=== PATIENT | female | born 1940 | race Caucasian/White ===

== ENCOUNTER 2019-08-14 22:10 | Inpatient (IN) | payer MEDICARE, OTHER, SELFPAY ==
[2019-08-14 22:11] VITALS: BP 118/70; PULSE 85; RESP 16; TEMP 37.9; O2SAT 88; O2SAT 94; BMI 38.3
--- NOTE | 2019-08-14 22:13 | XR_ITS ---
PROCEDURE: XR CHEST PORTABLE CLINICAL HISTORY: soa, cough COMPARISON: No exams were available for comparison FINDINGS: There is mild cardiomegaly without failure. Patchy density is noted in the right lower lung zone. There is also increased density in the left perihilar region and in the left lower lobe. No obvious effusions. Degenerative changes are present in the shoulders. There is some mild prominence of the mediastinum. IMPRESSION: Bilateral pneumonia with cardiomegaly. Cannot exclude left hilar mass. Consider chest CT with contrast for further evaluation Dictated by: Yoel Tay MD 08/15/2019 05:49 Electronically signed by Yoel Tay MD in [place] 08/15/2019 05:49
--- NOTE | 2019-08-14 22:16 | HMH.EDSOB ---
ED Disposition Clinical Impression: Pneumonia Qualifiers: Pneumonia type: due to unspecified organism Laterality: left Lung location: upper lobe of lung Qualified Code(s): J18.9 - Pneumonia, unspecified organism Pulmonary edema Qualifiers: Chronicity: acute Qualified Code(s): J81.0 - Acute pulmonary edema Atrial fibrillation Qualifiers: Atrial fibrillation type: unspecified Qualified Code(s): I48.91 - Unspecified atrial fibrillation Disposition: Admitted As Inpatient Condition on Discharge: Fair Referrals: Reggie Gandhi MD [Primary Care Provider] - - Critical Care Critical Care Time: No Attestation: On , the high probability of a clinically significant, sudden or life threatening deterioration of the following system(s) required my full and direct attention, intervention and personal management. The time I documented below is in addition to time spent performing reported procedures but includes the following listed in this critical care notation. Medical Decision Making - Medical Records Medical records reviewed: Yes: I reviewed the patient's medical records. - Cristian Inquiry Pt receiving controlled substance: No Vital Signs: 08/14/19 22:11 Temperature 100.2 F H Temperature Source Rectal Pulse Rate [Left Radial] 85 Respiratory Rate 16 Blood Pressure [Right Arm] 118/70 Blood Pressure Mean [Right Arm] 86 Blood Pressure Source [Right Arm] Automatic Cuff Blood Pressure Position [Right Arm] Sitting 02 Sat by Pulse Oximetry 94 L Oxygen Delivery Method Nasal Cannula Oxygen Flow Rate (LPM) 2 - Lab Data Lab Results 08/14/19 22:10: SARS-CoV-2 IgG Ab (Rapid) Negative, SARS-CoV-2 IgM Ab (Rapid) Negative 08/14/19 22:10: Urine Color Yellow, Urine Appearance Cloudy, Urine pH 5.5, Ur Specific [place] 1.020, Urine Protein 1+, Urine Glucose (UA) Negative, Urine Ketones Negative, Urine Blood Negative, Urine Nitrate Negative, Urine Bilirubin Negative, Urine Urobilinogen 0.2, Ur Leukocyte Esterase 2+ A, Urine WBC 50-100, Ur Squamous Epith Cells 10-20 08/14/19 22:10: WBC 11.6 H, RBC 5.32, Hgb 14.7, Hct 45.0, MCV 84.5, MCH 27.6, MCHC 32.7, RDW 15.0, Plt Count 270, MPV 9.3, Neut % (Auto) 79.1, Lymph % (Auto) 13.5, [place] % (Auto) 5.6, Eos % (Auto) 0.1, Baso % (Auto) 1.7, Neut # (Auto) 9.2 H, Lymph # (Auto) 1.6, [place] # (Auto) 0.7, Eos # (Auto) 0.0, Baso # (Auto) 0.2 08/14/19 22:10: Sodium 138, Potassium 3.6, Chloride 103, Carbon Dioxide 25, Anion Gap 13.6, BUN 31 H, Creatinine 1.60 H, Estimated Creat Clear 38, Estimated GFR 31 L, Est GFR ( Amer) 38 L, Glucose 189 H, Calcium 8.8, Total Bilirubin 0.8, AST 43 H, ALT 24, Alkaline Phosphatase 110, Troponin I 0.02, Total Protein 7.8, Albumin 3.8, Globulin 4.0 H, Albumin/Globulin Ratio 1.0 L 08/14/19 22:10: NT-Pro-B Natriuret Pep 5140 H Result diagrams: 08/14/19 22:10 08/14/19 22:10 Orders (Tests/Meds): ED MEDICATIONS Generic Name Dose Route Start Last Admin Trade Name Freq PRN Reason Stop Dose Admin Acetaminophen 650 mg 08/14/19 23:08 Acetaminophen 325mg Tab PO 09/13/19 23:07 Q4HP PRN As Needed for Fever or Pain Ibuprofen 400 mg 08/14/19 23:08 Motrin 400mg Tablet PO 09/13/19 23:07 Q6HP PRN Mild Pain Ondansetron HCl 4 mg 08/14/19 23:08 Zofran 4mg/2ml Vial IV 09/13/19 23:07 Q8HP PRN Nausea Discontinued Medications Generic Name Dose Route Start Last Admin Trade Name Freq PRN Reason Stop Dose Admin Cefepime HCl 2 gm/ Sodium 100 mls @ 200 mls/hr 08/14/19 22:15 Chloride IV 08/14/19 22:44 ONCE ONE Protocol ORDERS Category Date Time Status Chest XR -- portable [XR chest portable] Stat Exams 08/14/19 22:13 Taken Lactic Acid Stat Lab 08/14/19 22:14 Ordered Respiratory Panel (COVID), PCR Stat Lab 08/14/19 22:30 Received Troponin I Q3H Lab 08/15/19 01:15 Ordered Troponin I Q3H Lab 08/15/19 04:15 Ordered Blood Culture Stat Micro 08/14/19 22:14 Ordered Urine Culture Stat Micro
[2019-08-14 22:29] LABS: Basophils # 0.2 K/mm3 (0-0.2); Basophils % 1.7 % (0.1-2.0); Eosinophils % 0.1 % (0.1-12.0); Hemoglobin 14.7 g/dL (12.2-16.2); Lymphocytes # 1.6 K/mm3 (0.7-4.5); Lymphocytes % 13.5 % (10-50); Mean Corpuscular HGB Conc 32.7 g/dL (31.8-35.4); Mean Corpuscular Hemoglobin 27.6 pg (27.0-31.2); Mean Corpuscular Volume 84.5 fl (81-99); Mean Platelet Volume 9.3 fl (7.4-10.4); Monocytes # 0.7 K/mm3 (0.1-1.0); Monocytes % 5.6 % (1.7-9.3); Neutrophils # 9.2 K/mm3 (1.8-7.8); Neutrophils % 79.1 % (37.0-80.0); Platelet Count 270 K/mm3 (142-424); Red Blood Count 5.32 M/mm3 (4.20-5.40); White Blood Count 11.6 K/mm3 (4.8-10.8)
[2019-08-14 22:30] LABS: Microscopic, Urine URINE MICROSCOPIC (MICROSCOPIC)
[2019-08-14 22:40] LABS: Adenovirus,PCR Not Detected (NotDetected); Bordetella Pertussis Not Detected (NotDetected); Chlamydophila Pneumoniae, PCR Not Detected (NotDetected); Coronavirus 229E Not Detected (NotDetected); Coronavirus NL63 Not Detected (NotDetected); Coronavirus OC43 Not Detected (NotDetected); Coronovirus HKU1,PCR Not Detected (NotDetected); Human Metapneumovirus Not Detected (NotDetected); Influenza A, PCR Not Detected (NotDetected); Influenza AH1, 2009 Not Detected (NotDetected); Influenza AH1, PCR Not Detected (NotDetected); Influenza AH3,PCR Not Detected (NotDetected); Influenza B, PCR Not Detected (NotDetected); Mycoplasma Pneumoniae, PCR Not Detected (NotDected); Parainfluenza 1, PCR Not Detected (NotDetected); Parainfluenza 2, PCR Not Detected (NotDetected); Parainfluenza 3, PCR Not Detected (NotDetected); Parainfluenza 4, PCR Not Detected (NotDetected); Respiratory Syncytial Virus Not Detected (NotDetected); Rhinovirus/Enterovirus Not Detected (NotDetected)
[2019-08-14 22:51] LABS: Alanine Aminotransferase 24 U/L (12-78); Albumin Level 3.8 g/dl (3.5-5.0); Alkaline Phosphatase 110 U/L (38-126); Anion Gap 13.6 mEq/L (5-15); Aspartate Amino Transferase 43 U/L (14-36); Bilirubin,Total 0.8 mg/dl (0.2-1.3); Blood Urea Nitrogen 31 mg/dl (7-17); Calcium 8.8 mg/dl (8.4-10.2); Carbon Dioxide 25 mmol/L (22.0-30.0); Chloride 103 mmol/L (98-107); Creatinine Clearance Estimated 38 mL/min (50-200); Estimated Glomerular Filt Rate 31 ml/min (>60); GFR (African American) 38 ML/MIN (>60); Glucose 189 mg/dl (74-100); Potassium 3.6 mmoL/L (3.5-5.1); Sodium 138 mmol/L (136-145); Total Protein,Serum 7.8 g/dl (6.3-8.2)
[2019-08-14 22:59] LABS: Appearance,Urine CLOUDY (Clear); Bilirubin,Urine Negative (Negative); Blood, Urine Negative (Negative); Color,Urine YELLOW (Yellow); Glucose,Urine (UA) Negative (Negative); Ketones,Urine Negative (Negative); Leukocyte Esterase,Urine 2+ (Negative); Nitrate,Urine Negative (Negative); PH,Urine 5.5 (5.0-8.5); Protein,Urine 1+ (Negative); Urobilinogen,Urine 0.2 EU/dl (0.2)
[2019-08-14 23:01] VITALS: BP 117/77; PULSE 98; RESP 17; O2SAT 94
[2019-08-14 23:01] LABS: NT Pro Brain Natriuretic Pep. 5140 pg/mL (0-450)
[2019-08-14 23:04] LABS: Troponin I 0.02 ng/ml (0.00-0.034)
[2019-08-14 23:05] LABS: Coronavirus 19 IgG Antibody Negative (Negative); Coronavirus 19 IgM Antibody Negative (Negative)
[2019-08-14 23:07] LABS: WBC,Urine 50-100 #/hpf (0-3)
[2019-08-14 23:41] VITALS: BP 111/43; PULSE 116; RESP 16; O2SAT 93
[2019-08-14 23:47] LABS: Lactic Acid 1.3 mmol/L (0.7-2.1)
[2019-08-15] VITALS (11 sets, daily range): BP systolic 106–160; BP diastolic 56–68; PULSE 94–130; RESP 16–20; TEMP 35.6–38; O2SAT 2–93; BMI 36.4
--- NOTE | 2019-08-15 | ECG_ITS ---
APPROVED REPORT Exam: Resting ECG HR:152 bpm ECG Measurements Heart Rate 152 AXES QRSd 80 QRS -28 QT 268 T 126 QTc 426 <Conclusion> Atrial fibrillation with rapid ventricular response with premature ventricular or aberrantly conducted complexes Septal infarct, age undetermined Inferior infarct, age undetermined Abnormal ECG Electronically signed by : Jesse Kilgore, 08/16/2019 15:52:55
[2019-08-15 00:06] LABS: Coronavirus 19, PCR Detected (NotDetected)
[2019-08-15 05:49] LABS: POC Glucose,Bedside 125 (70-110)
--- NOTE | 2019-08-15 05:53 | PC.NURSE ---
Pt new admit this shift d/t Covid, UTI, PNA, and AFIB w/RVR. Pt is A&Ox4 since arrivall although she is a poor historian r/t doing admission assessment questions. Pt has had no complaints since arrival. Rectal temp of 96.0 was obtained and pt was covered w/ warm blankets and temperature in room was increased. Re-check rectal temp was 97.7. No new complaints. Pt remains Afib on tele at this time but rate is 100's-120's now. Tolerating 1LNC w/ sats in low 90's. Campbell is patent to bedside drain w/ clear, yellow urine noted w/ small amount of sediment present. Will continue to monitor.
--- NOTE | 2019-08-15 07:29 | P.CONPHA_ITS ---
[facility] Pharmacy VTE Monitoring - Patient Demographics Admission date: 08/14/19 Report Date: 08/15/19 Time: 07:29 Allergies/Adverse Reactions: Patient Allergies codeine Allergy (Verified 08/14/19 22:45) Height: 1.5 m Weight: 82.1 kg Patient Problems: Current Active Problems Pneumonia (Acute) Pulmonary edema (Acute) Atrial fibrillation (Acute) - VTE Risk Labs: VTE Related Lab Results Hgb 14.7 g/dL (12.2-16.2) 08/14/19 22:10 Hct 45.0 % (37.0-47.0) 08/14/19 22:10 Plt Count 270 K/mm3 (142-424) 08/14/19 22:10 BUN 31 mg/dl (7-17) H 08/14/19 22:10 Creatinine 1.60 mg/dl (0.52-1.04) H 08/14/19 22:10 Estimated Creat Clear 38 mL/min (50-200) 08/14/19 22:10 Was VTE Risk Assessment Performed: Yes VTE Score: 4 VTE Risk Level: Low Risk Clinical Trial Participant: No - Prophylaxis VTE Prophylaxis Ordered?: Yes Types of VTE Prophylaxis: TEDS Knee High, Pharmacological Pharmacologic Type: Enoxaparin
--- NOTE | 2019-08-15 08:20 | HMH.PHAINT ---
MEDICATION RECONCILIATION COMPLETED ON PATIENT USING MAR FROM [facility]. -TERESA RODRIGUEZ, PHILLD
--- NOTE | 2019-08-15 09:34 | HMH.HP ---
*Admission Date: 08/14/19 *Chief complaint: soa *History of present illness: 78 yo female resident of [facility] sent to ED for SOA, cough,and malaise for 1 week. Pt states several episodes of vomiting and diarrhea as well.Past medical history significant for diabetes, coronary artery disease, hypothyroidism, COPD, arthritis Found to have bilateral pneumonia and tested positive for COVID 19. Telemetry and EKG reveals A. fib with RVR that has improved to rates down around 100 bpm without rate control medication addition. Initial troponin is normal. BNP noted to be greater than 5000 with no definitive results of CHF noted on chest x-ray. Mild hypoxia has responded well to 1 L of oxygen therapy. She was noted to have oxygen saturations of 88 to 89% on room air at [place] where she resides. Pt admitted for Bilateral pneumonia with cardiomegaly and Positive COVID test. [facility] History I have reviewed the patient's past medical history: Yes Medical History: Reports:: Chronic Obstructive Pulmonary Disease (COPD), Coronary Artery Disease, Diabetes Mellitus Type 2 Denies:: Cancer, Diabetes Mellitus Type 1, MRSA *Have you ever received a pneumonia vaccine?: No (pt unsure) *Have you received a flu vaccine this season?: Yes Other Medical History: Reports: Arthritis, Hypothyroidism Amputation: No - *Social History Alcohol Intake: never *Occupational Status:: disabled Housing: assisted living facility Household Members: other *Travel in the last 8 weeks: None Family Hx:: Unable to obtain Review of Systems - Review of Systems Review of systems:: pertinent systems reviewed and negative unless documented below - Constitutional Reports fever(s), Reports malaise - Eyes Denies loss of vision - ENT Denies lip swelling, Denies sore throat - *Cardiovascular Reports shortness of breath, Reports shortness of breath with activity, Reports irregular heart rhythm, Denies chest pain with activity - *Respiratory Reports change in phlegm color, Reports chest congestion, Reports cough, Reports shortness of breath - *Gastrointestinal Reports loose stools, Reports vomiting - *Genitourinary Denies urinary incontinence - *Musculoskeletal Reports muscle weakness, Denies joint pain - Integumentary/Breasts Denies rash - *Neurologic Reports weakness, Denies memory loss - Psychiatric Denies anxiety - Endocrine Denies excessive sweating - Hematologic/Lymphatic Denies easy bruising Meds Home Medications Medication Instructions Recorded Confirmed Type Amlodipine Besylate [Amlodipine 5 mg PO BID 08/14/19 08/15/19 History 5mg tab] Atorvastatin Calcium [Atorvastatin 80 mg PO HS 08/14/19 08/14/19 History 80mg Tab] Furosemide [Furosemide 20mg Tab] 20 mg PO DAILY 08/14/19 08/14/19 History Hydralazine HCl 50 mg PO TID 08/14/19 08/14/19 History Insulin Glargine,Hum.rec.anlog 15 unit SQ HS 08/14/19 08/14/19 History [Lantus Insulin 100units/mL 10mL vial] Levothyroxine Sodium 25 mcg PO DAILY 08/14/19 08/14/19 History [Levothyroxine 25mcg (0.025mg) Tab] Linagliptin [Tradjenta 5mg tablet] 5 mg PO DAILY 08/14/19 08/14/19 History Losartan Potassium [Cozaar 50mg 50 mg PO DAILY 08/14/19 08/14/19 History Tablets] Mirtazapine [Remeron] 15 mg PO HS 08/14/19 08/15/19 History Acetaminophen [Acetaminophen 325mg 650 mg PO Q6H PRN 08/15/19 08/15/19 History tab] Albuterol Sulfate [Ventolin HFA 2 puffs IH Q6HP PRN 08/15/19 08/15/19 History Inhaler] Aspirin [Aspirin 81mg chewable 81 mg PO DAILY 08/15/19 08/15/19 History tab] Cholecalciferol (Vitamin D3) 1,000 unit PO DAILY 08/15/19 08/15/19 History [Vitamin D3 1,000 Unit Tab] Cyanocobalamin (Vitamin B-12) 1,000 mcg PO DAILY 08/15/19 08/15/19 History [Vitamin B-12 1000mcg Tablet] Fluticasone Propionate [Flonase 1 spray NS DAILY 08/15/19 08/15/19 History Allergy Relief NS] Loperamide HCl [Loperamide] 2 mg PO Q4HP PRN 08/15/19 08/15/19 History Sen
--- NOTE | 2019-08-15 10:13 | HMH.CNCARD ---
History of Present Illness Consult date: 08/15/19 Requesting physician: Reggie Gandhi Consult reason: atrial fibrillation Chief complaint: SOA Additional Medical History:: 1. IDDM 2. Reported history of CAD with patient claiming to have had 2 heart attacks and 2 stents placed on 2 separate occasions. She believes this might of happened most recently at [facility] in [place] but cannot remember the date. 3. HTN 4. A. fib with RVR, 07/2019, in setting of COVID-19, pneumonia 5. COPD 6. Hypothyroidism 7. Arthritis 8. Chronic kidney disease, stage III A. Creatinine 1.9, GFR 31, creatinine clearance 38, 08/15/2019 History of present illness: 78 yo female resident of [facility] sent for SOA and malaise for 1 week. Found to have bilateral pneumonia and tested positive for COVID 19. Telemetry and EKG reveals A. fib with RVR that has improved to rates down around 100 bpm without rate control medication addition. Initial troponin is normal. BNP noted to be greater than 5000 with no definitive results of CHF noted on chest x-ray. Mild hypoxia has responded well to 1 L of oxygen therapy. Cardiology consulted for atrial fibrillation. 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 Although nursing states that she was able to tell them it was 2019 earlier. [facility] History Medical History: Reports:: Chronic Obstructive Pulmonary Disease (COPD), Coronary Artery Disease, Diabetes Mellitus Type 2 Denies:: Cancer, Diabetes Mellitus Type 1, MRSA *Have you ever received a pneumonia vaccine?: No (pt unsure) *Have you received a flu vaccine this season?: Yes Other Medical History: Reports: Arthritis, Hypothyroidism Amputation: No - *Social History Alcohol Intake: never *Occupational Status:: disabled Housing: assisted living facility Household Members: other *Travel in the last 8 weeks: None Family Hx:: Unable to obtain Meds Home Medications Medication Instructions Recorded Confirmed Type Amlodipine Besylate [Amlodipine 5 mg PO BID 08/14/19 08/15/19 History 5mg tab] Atorvastatin Calcium [Atorvastatin 80 mg PO HS 08/14/19 08/14/19 History 80mg Tab] Furosemide [Furosemide 20mg Tab] 20 mg PO DAILY 08/14/19 08/14/19 History Hydralazine HCl 50 mg PO TID 08/14/19 08/14/19 History Insulin Glargine,Hum.rec.anlog 15 unit SQ HS 08/14/19 08/14/19 History [Lantus Insulin 100units/mL 10mL vial] Levothyroxine Sodium 25 mcg PO DAILY 08/14/19 08/14/19 History [Levothyroxine 25mcg (0.025mg) Tab] Linagliptin [Tradjenta 5mg tablet] 5 mg PO DAILY 08/14/19 08/14/19 History Losartan Potassium [Cozaar 50mg 50 mg PO DAILY 08/14/19 08/14/19 History Tablets] Mirtazapine [Remeron] 15 mg PO HS 08/14/19 08/15/19 History Acetaminophen [Acetaminophen 325mg 650 mg PO Q6H PRN 08/15/19 08/15/19 History tab] Albuterol Sulfate [Ventolin HFA 2 puffs IH Q6HP PRN 08/15/19 08/15/19 History Inhaler] Aspirin [Aspirin 81mg chewable 81 mg PO DAILY 08/15/19 08/15/19 History tab] Cholecalciferol (Vitamin D3) 1,000 unit PO DAILY 08/15/19 08/15/19 History [Vitamin D3 1,000 Unit Tab] Cyanocobalamin (Vitamin B-12) 1,000 mcg PO DAILY 08/15/19 08/15/19 History [Vitamin B-12 1000mcg Tablet] Fluticasone Propionate [Flonase 1 spray NS DAILY 08/15/19 08/15/19 History Allergy Relief NS] Loperamide HCl [Loperamide] 2 mg PO Q4HP PRN 08/15/19 08/15/19 History Sennosides/Docusate Sodium 2 tab PO DAILYP PRN 08/15/19 08/15/19 History [Senokot-S Tablet] Allergies Allergy/AdvReac Type Severity Reaction Status Date / Time codeine Allergy Verified 08/14/19 22:45 Review of Systems - Review of Systems Review of systems:: pertinent systems reviewed and negative unless documented below - *Cardiovascular Reports shortness of breath, Denies chest pain - *Respiratory Reports cough, Reports shortness of breath - *Gastrointestinal Denies abdominal pain, Denies loose stools, Denies vomiting
[2019-08-15 11:27] LABS: POC Glucose,Bedside 115 (70-110)
--- NOTE | 2019-08-15 13:10 | CA_ITS ---
APPROVED REPORT EXAM: Comprehensive 2D, Doppler, and color-flow Echocardiogram Closing Agent: Phoebe Posey RDCS Ht: 4 ft 11 in Wt: 181lbs BSA: 1.77 BP: 110/70 mmHg Indications: COVID POSITIVE,, AF, CAD 2D Dimensions LVOT 1.71 cm (M/F) 1.5-2.5 M-Mode Dimensions RVDd 3.61 cm (0.9-2.6) LVDd 4.06 cm (3.5-5.7) LVDs 3.45 cm (3.5-5.7) IVSd 1.18 cm (0.6-1.1) PWd 1.06 cm (0.6-1.1) EF (Teich) 32.30% FS 15.00% EDV (Teich) 72.50 mL ESV (Teich) 49.10 mL Aortic Valve LVOT Max 117.00 (70-110 cm/s) LVOT VTI 19.06 cm Mitral Valve MV PHT 88.00 ms Left Ventricle Left atrium is mildly enlarged, left ventricle is normal size, mild concentric left ventricular hypertrophy, visually estimated ejection fraction 55% with no regional wall motion abnormality. Right Ventricle Right atrium and right ventricle contractility. Aortic Valve Aortic valve is thickened and calcified leaflet continue to display mobility, there is no Doppler evidence of aortic stenosis, there is moderate aortic insufficiency. Mitral Valve Mitral valve leaflets are minimally thickened, there is mild mitral regurgitation. Tricuspid Valve Tricuspid valve leaflets are minimally thickened, there is mild tricuspid regurgitation, tricuspid regurgitation jet velocity is inadequate for calculation of the right ventricular systolic pressure. Pulmonic Valve Pulmonic valve is poorly visualized. Great Vessels Aortic root is normal size. Pericardium No significant pericardial effusion noted. Conclusion 1. Enlarged left atrium, normal left ventricular size, mild concentric left ventricular hypertrophy, visually estimated ejection fraction 55% with no regional wall motion abnormality, diastolic parameters are inconclusive. 2. Thickened and calcified aortic valve without Doppler evidence of aortic stenosis, there is moderate aortic insufficiency. 3. Mild mitral and tricuspid regurgitation. 4. No significant pericardial effusion noted. Electronically signed by : Boston Moss, 08/15/2019 19:43:53
--- NOTE | 2019-08-15 13:56 | SW/DCPLANNER ---
Patient does reside at [facility]. I will continue to follow up with [place] throughout hospital admission.
--- NOTE | 2019-08-15 15:38 | HMH.SLDYSPHA ---
Speech & Language Evaluation Speech/Language Dysphagia Evaluation Start: 08/15/19 15:25 Freq: ONCE Status: Active Protocol: Document 08/15/19 15:25 ERVIN (Rec: 08/15/19 15:37 ERVIN [id number]) Dysphagia Assess/Goals/Plan Assessment Date of Evaluation: 08/15/19 Evaluation Type Initial Certification Assessment/Problems r/o aspiration Does Patient Qualify for Service No Qualify/Failure Comment At this time, speech therapy is not recommended however, diet modifications will be made due to lack of dentition. Recommendations PHYSICIAN CERTIFICATION: The specified therapy services are required, authorized, and reviewed every 30 days. Diet Recommendations Mechanical Soft Liquid Type Recommendations Normal/Thin Plan Pt/Guardian verbally ack understanding Yes: RN notified of dx/prognosis/goals G -code Required No Speech & Language HPI Language Primary Language Kyrgyz General Information General Current Food Consistancy Regular,Thin Liquids Dentition Edentulous Oxygen Status Room Air Facial Symmetry Symmetrical Patient Orientation Person,Place,Time Dysphagia:Food Presentation Evaluation Food Type Pureed,Mechanical Soft,Regular ,Liquid,Pudding Dysphagia Evaluation Summary Ms. Chambers was given the following consistencies: thins via straw and open cup, pudding, pureed, mechanical soft, and regular. No s/s of dysphagia were noted. At this time, it is recommended that she be placed on mechanical soft with thin liquids due to the lack of dentition. Stroke Dysphagia Assessment PHYSICIAN CERTIFICATION: I certify the specified therapy services for Cece Chambers are required, authorized, and reviewed every 30 days.
[2019-08-15 16:30] LABS: Coronavirus 19 IgG Antibody Negative (Negative); Coronavirus 19 IgM Antibody Negative (Negative)
[2019-08-15 18:01] LABS: POC Glucose,Bedside 104 (70-110)
--- NOTE | 2019-08-15 18:23 | PC.NURSE ---
Pt alert and oriented x 4 and able to make need known. Pt did have brief episode of confusion this shift, stating the year was 1939 and she wasn't able to tell me where she was, pt is back to baseline at this time for mentation. At that time pt had removed 02 and satting 86-88%. Have reminded pt not to remove 02, verbs understanding. Will cont to mx. Campbell in place. No complaints currently. VSS.
[2019-08-15 22:16] LABS: POC Glucose,Bedside 179 (70-110)
[2019-08-16] VITALS (8 sets, daily range): BP systolic 114–140; BP diastolic 54–70; PULSE 77–102; RESP 16–20; TEMP 36.1–37.3; O2SAT 90–92; BMI 36.1
[2019-08-16 00:04] LABS: POC Glucose,Bedside 144 (70-110)
--- NOTE | 2019-08-16 06:00 | XR_ITS ---
PROCEDURE: XR CHEST AP CLINICAL HISTORY: covid/pneumonia COMPARISON: XR CHEST PORTABLE from 08/14/2019 FINDINGS: The cardiomediastinal silhouette and pulmonary vascularity are within normal limits. There is some patchy ground-glass density in the right lower lobe suspicious for pneumonia. Left perihilar opacity once again noted not significantly changed. No effusions. Upper lobes are clear. Degenerative changes are noted in the shoulders IMPRESSION: No change bilateral pneumonia Dictated by: Yoel Tay MD 08/16/2019 06:56 Electronically signed by Yoel Tay MD in [place] 08/16/2019 06:56
--- NOTE | 2019-08-16 07:06 | PC.NURSE ---
PT ALERT TO EVERYTHING EXCEPT WHAT TOWN SHE WAS IN. PT HAS TOLERATED 2LNC WELL WITH NO C/O SOA, COUGH, NA/VO/DI THIS SHIFT. PT HAS HAD NO C/O PAIN. PT HAS SLEPT WELL T/O MAJORITY OF SHIFT. F/C IN PLACE. PT HAD 1 LOOSE BROWN BM THIS SHIFT. NO COMPLAINTS THUS FAR, VSS WILL CONTINUE TO MONITOR.
[2019-08-16 07:13] LABS: Basophils # 0.1 K/mm3 (0-0.2); Basophils % 1.5 % (0.1-2.0); Eosinophils % 0.3 % (0.1-12.0); Hematocrit 25.2 % (37.0-47.0); Hemoglobin 8.1 g/dL (12.2-16.2); Lymphocytes # 1.3 K/mm3 (0.7-4.5); Lymphocytes % 18.8 % (10-50); Mean Corpuscular Hemoglobin 28.5 pg (27.0-31.2); Mean Corpuscular Volume 89.3 fl (81-99); Mean Platelet Volume 10.2 fl (7.4-10.4); Monocytes # 0.4 K/mm3 (0.1-1.0); Monocytes % 5.9 % (1.7-9.3); Neutrophils % 73.5 % (37.0-80.0); Platelet Count 132 K/mm3 (142-424); Red Blood Count 2.83 M/mm3 (4.20-5.40); Red Cell Distribution Width 14.8 % (11.5-17.5); White Blood Count 6.8 K/mm3 (4.8-10.8)
[2019-08-16 07:18] LABS: Chloride 118 mmol/L (98-107); Sodium 140 mmol/L (136-145)
[2019-08-16 07:21] LABS: Blood Urea Nitrogen 30 mg/dl (7-17); Creatinine Clearance Estimated 52 mL/min (50-200); Estimated Glomerular Filt Rate 48 ml/min (>60); GFR (African American) 58 ML/MIN (>60)
[2019-08-16 07:22] LABS: Anion Gap 5.7 mEq/L (5-15); Carbon Dioxide 19 mmol/L (22.0-30.0); Glucose 92 mg/dl (74-100)
[2019-08-16 07:23] LABS: POC Glucose,Bedside 107 (70-110)
[2019-08-16 07:36] LABS: Potassium 2.7 mmoL/L (3.5-5.1)
[2019-08-16 08:59] LABS: Magnesium 1.9 mg/dl (1.6-2.3)
--- NOTE | 2019-08-16 11:56 | HMH.ACPN2 ---
Internal Medicine - PN: Subj *Date: 08/16/19 *Time: 11:56 Interval history: 78-year-old female patient lying in bed alert and oriented x1. She denies shortness of breath or any breathing difficulties. Potassium 2.7, calcium 6.0 will be replaced today Exam Vital signs and Labs for Last 24 Hours: Temp Pulse Resp BP Pulse Ox 96.9 F L 97 H 20 129/54 L 91 L 08/16/19 08:00 08/16/19 08:00 08/16/19 08:00 08/16/19 08:00 08/16/19 08:00 Laboratory Results - last 24 hr 08/15/19 14:45: SARS-CoV-2 IgG Ab (Rapid) Negative, SARS-CoV-2 IgM Ab (Rapid) Negative 08/15/19 17:38: POC Glucose 104 08/15/19 21:14: POC Glucose 179 H 08/15/19 23:53: POC Glucose 144 H 08/16/19 06:20: POC Glucose 107 08/16/19 06:44: WBC 6.8 D, RBC 2.83 L D, Hgb 8.1 L, Hct 25.2 L, MCV 89.3, MCH 28.5, MCHC 32.0, RDW 14.8, Plt Count 132 L D, MPV 10.2, Neut % (Auto) 73.5, Lymph % (Auto) 18.8, [place] % (Auto) 5.9, Eos % (Auto) 0.3, Baso % (Auto) 1.5, Neut # (Auto) 5.0, Lymph # (Auto) 1.3, [place] # (Auto) 0.4, Eos # (Auto) 0.0, Baso # (Auto) 0.1 08/16/19 06:44: Sodium 140, Potassium 2.7 L* D, Chloride 118 H, Carbon Dioxide 19 L D, Anion Gap 5.7, BUN 30 H, Creatinine 1.10 H D, Estimated Creat Clear 52, Estimated GFR 48 L, Est GFR ( Amer) 58 L D, Glucose 92, Calcium 6.0 L D 08/16/19 06:44: Magnesium 1.9 I & O for Last 24 hours: Intake & Output 08/13/19 08/14/19 08/15/19 08/16/19 23:59 23:59 23:59 23:59 Intake Total 640 / 640 240 / 240 Output Total 350 / 610 260 / 260 Balance 290 / 30 -20 / -20 Weight 190 lb 180 lb 12.465 oz 179 lb 6 oz Microbiology Reports for the Last 24 Hours: Microbiology 08/14/19 22:10 Urine,Catheterized Urine Culture - Preliminary Gram Negative Rods - Constitutional no acute distress - *Routine HEENT Exam Head: Present: normocephalic ENT: Present: mucous membranes moist - *Routine Neck Exam Present: full ROM, trachea midline. Absent: JVD, tracheal deviation - *Routine Respiratory Exam Present: decreased breath sounds - *Routine Cardiovascular Exam Present: RRR - *Routine Abdominal Exam Present: soft, normoactive bowel sounds. Absent: firm - *Routine Extremities Exam Present: edema, full ROM, pulses intact. Absent: calf tenderness Comments: Bilat pedal edema - *Routine Skin Exam Present: intact, warm. Absent: cyanosis, jaundice - *Routine Neurological Exam Present: alert. Absent: altered mental status - Routine Psychiatric Exam Present: unable to assess Assessment and Plan (1) Pneumonia Current visit: Yes Status: Acute Qualifiers: Pneumonia type: due to unspecified organism Laterality: left Lung location: upper lobe of lung Qualified Code(s): J18.9 - Pneumonia, unspecified organism Category: Medical Code(s): J18.9 - Pneumonia, unspecified organism (2) COVID-19 virus detected Current visit: Yes Status: Acute Category: Medical Code(s): U07.1 - COVID-19 (3) Atrial fibrillation Current visit: Yes Status: Acute Qualifiers: Atrial fibrillation type: unspecified Qualified Code(s): I48.91 - Unspecified atrial fibrillation Category: Medical Code(s): I48.91 - Unspecified atrial fibrillation (4) Diabetes mellitus, insulin dependent (IDDM), controlled Current visit: Yes Status: Acute Category: Medical (5) COPD (chronic obstructive pulmonary disease) Current visit: Yes Status: Acute Category: Medical Code(s): J44.9 - Chronic obstructive pulmonary disease, unspecified (6) Elevated brain natriuretic peptide (BNP) level Current visit: Yes Status: Acute Category: Medical Code(s): R79.89 - Other specified abnormal findings of blood chemistry (7) Hypokalemia Current visit: Yes Status: Acute Category: Medical Code(s): E87.6 - Hypokalemia (8) Hypocalcemia Current visit: Yes Status: Acute Category: Medical Code(s): E83.51 - Hypocalcemia - Assessment and plan all Dx
--- NOTE | 2019-08-16 14:29 | PC.NURSE ---
PT IS RESTING IN BED. PT ONLY TOLERATED SITTING UP IN THE CHAIR FOR 30 MIN. THIS MORNING. PT HAS SLEPT MOST OF THE SHIFT. PT DID TOLERATE AMBULATING WITH 1 ASSIST TO THE BATHROOM IN THE ROOM. WHEN AMBULATING BACK PT GOT VERY SOA AND WANTED TO LAY BACK DOWN RIGHT AWAY. O2 SATURATION HAS BEEN 92-96% ON 2 L NC. ROOM AIR SATURATION 84-87%. PT HAS NOT BEEN EATING WELL TODAY BUT HAS TOLERATED LIQUIDS. LUNG SOUNDS DIMINISHED. BOWEL SOUNDS NORMAL. PT HAD A MODERATE NORMAL BOWEL MOVEMENT THIS SHIFT. TOLERATED BATH/LINEN CHANGE/HAIR WASH. WILL CONTINUE TO MONITOR.
--- NOTE | 2019-08-16 14:31 | SW/DCPLANNER ---
Patient resides at [facility]. The plan for this patient is to discharge back to [facility] once medically stable for discharge.
[2019-08-17] VITALS (9 sets, daily range): BP systolic 112–138; BP diastolic 59–78; PULSE 77–130; RESP 18–20; TEMP 36.2–37.8; O2SAT 84–94; BMI 35.9
--- NOTE | 2019-08-17 04:44 | PC.NURSE ---
A&OX4. PT HAS TOLERATED 2L NC WELL THROUGHOUT SHIFT. PT IS CURRENTLY ON 1L NC. TRYING TO WEAN PATIENT DOWN. CURRENTLY ON 91% 1L NC. WILL CONTINUE TO MONITOR. AFIB ON TELEMETRY. RESPIRATIONS REGULAR AND UNLABORED. DIMINISHED LUNG SOUNDS NOTED THROUGHOUT. NO COUGH NOTED THROUGHOUT SHIFT. ACTIVE BOWEL SOUNDS HEARD IN ALL 4 QUADRANTS. SOFT NONTENDER ABDOMEN. NO BM NOTED. GOLD CATHETER IN PLACE WITH CLEAR YELLOW URINE FLOWING FREELY. NO KINKS NOTED. HAND SENIOR QA ANALYST EQUAL. PT HAS BEEN IN CONTACT AND [employer] PRECAUTIONS W EYE PROTECTION THROUGHOUT SHIFT. CALL LIGHT WITHIN REACH. BED IN LOWEST POSITION. VSS. PT RESTING COMFORTABLY IN BED. NO COMPLAINTS OF PAIN THROUGHOUT SHIFT. NO CONCERNS AT THIS TIME. WILL CONTINUE TO MONITOR.
--- NOTE | 2019-08-17 06:00 | XR_ITS ---
PROCEDURE: XR CHEST AP CLINICAL HISTORY: covid/pneumonia COMPARISON: XR CHEST PORTABLE from 08/14/2019 XR CHEST AP from 08/16/2019 FINDINGS: Mild cardiomegaly without failure. No change right lower lobe infiltrate. Left perihilar mass/masslike infiltrate is once again noted. Chest CT may provide further evaluation for this abnormality to determine if this represents pneumonia or perihilar mass. No acute bony abnormalities. IMPRESSION: Overall no significant change right lower lobe infiltrate in left perihilar mass/infiltrate Dictated by: Yoel Tay MD 08/17/2019 06:41 Electronically signed by Yoel Tay MD in [facility] 08/17/2019 06:41
[2019-08-17 06:33] LABS: Chloride 110 mmol/L (98-107); Potassium 3.8 mmoL/L (3.5-5.1); Sodium 142 mmol/L (136-145)
[2019-08-17 06:36] LABS: Anion Gap 10.8 mEq/L (5-15); Blood Urea Nitrogen 28 mg/dl (7-17); Carbon Dioxide 25 mmol/L (22.0-30.0); Creatinine Clearance Estimated 52 mL/min (50-200); Estimated Glomerular Filt Rate 48 ml/min (>60); GFR (African American) 58 ML/MIN (>60)
[2019-08-17 06:37] LABS: Glucose 91 mg/dl (74-100)
[2019-08-17 06:42] LABS: Eosinophils # 0.1 K/mm3 (0.0-0.4); Monocytes # 0.7 K/mm3 (0.1-1.0); Monocytes % 6.6 % (1.7-9.3)
[2019-08-17 06:48] LABS: Calcium 8.2 mg/dl (8.4-10.2)
[2019-08-17 06:55] LABS: Basophils # 0.3 K/mm3 (0-0.2); Eosinophils % 0.7 % (0.1-12.0); Hematocrit 39.5 % (37.0-47.0); Lymphocytes # 2.8 K/mm3 (0.7-4.5); Lymphocytes % 26.8 % (10-50); Mean Corpuscular HGB Conc 33.1 g/dL (31.8-35.4); Mean Corpuscular Hemoglobin 28.2 pg (27.0-31.2); Mean Corpuscular Volume 85.3 fl (81-99); Mean Platelet Volume 10.1 fl (7.4-10.4); Neutrophils # 6.6 K/mm3 (1.8-7.8); Neutrophils % 62.9 % (37.0-80.0); Platelet Count 293 K/mm3 (142-424); Red Blood Count 4.63 M/mm3 (4.20-5.40); White Blood Count 10.5 K/mm3 (4.8-10.8)
[2019-08-17 06:56] LABS: Hemoglobin 13.1 g/dL (12.2-16.2)
[2019-08-17 08:39] LABS: Covid-19 Nasal PCR Sendout Lex DETECTED
--- NOTE | 2019-08-17 09:55 | PC.NURSE ---
WHILE ADMINISTERING MEDICATION, PATIENT REFUSED TO SIT UP TO SWALLOW PILLS. THIS RN EDUCATED PATIENT IN REGARDS TO ASPIRATION AND POSSIBLE CHOKING. PATIENT CONTINUED TO REFUSE. THIS RN ENCOURAGED PATIENT TO SIT UP A LITTLE TO SWALLOW PILLS. PATIENT AGAIN REFUSED AND POURED A PORTION OF HER WATER INTO THE SMALL CUP THAT DIETARY PROVIDES SALT, PEPPER AND SUGAR IN. THIS RN QUESTIONED PATIENT WHY SHE WAS POURING WATER INTO THAT CUP. PATIENT WOULD NOT ANSWER THIS RN. THIS RN AGAIN EDUCATED PATIENT ABOUT HER MEDICATION AND WATER COULD GO INTO HER LUNGS AND CAUSE HER TO ASPIRATE. PATIENT STATED I CAN'T SIT UP, THIS IS WHAT I DO.
--- NOTE | 2019-08-17 12:06 | PC.NURSE ---
notified bob abbasi that the pt o2 sat has decreased and hr has increased. pt had period of vomiting with possible aspiration. no new orders at this time. notified at [id number]
[2019-08-17 12:26] LABS: POC Glucose,Bedside 130 (70-110)
[2019-08-17 12:26] LABS: POC Glucose,Bedside 125 (70-110)
[2019-08-17 12:26] LABS: POC Glucose,Bedside 123 (70-110)
[2019-08-17 12:26] LABS: POC Glucose,Bedside 105 (70-110)
[2019-08-17 12:26] LABS: POC Glucose,Bedside 86 (70-110)
--- NOTE | 2019-08-17 12:41 | PC.NURSE ---
pt is noncompliant/resistant to care. she states that she cannot stand, yet states she walks with a walker [facility]. pt is easily irritated, continually removing pulse oximeter and oxygen. pt reminded of importance of both.
--- NOTE | 2019-08-17 12:56 | HMH.ACPN2 ---
Internal Medicine - PN: Subj *Date: 08/17/19 *Time: 13:20 Interval history: 78-year-old female patient lying in bed, she is encouraged to be OOB as much as possible. Afebrile overnight, satting 90% on 1 L. Exam Vital signs and Labs for Last 24 Hours: Temp Pulse Resp BP Pulse Ox 97.5 F L 83 18 112/65 93 L 08/17/19 12:00 08/17/19 12:00 08/17/19 12:00 08/17/19 12:00 08/17/19 12:00 Laboratory Results - last 24 hr 08/15/19 14:45: SARS-CoV-2 (PCR) Detected 08/16/19 12:13: POC Glucose 125 H 08/16/19 16:18: POC Glucose 130 H 08/16/19 21:03: POC Glucose 123 H 08/17/19 01:46: POC Glucose 86 08/17/19 05:50: WBC 10.5 D, RBC 4.63 D, Hgb 13.1 D, Hct 39.5, MCV 85.3, MCH 28.2, MCHC 33.1, RDW 15.0, Plt Count 293 D, MPV 10.1, Neut % (Auto) 62.9, Lymph % (Auto) 26.8, [place] % (Auto) 6.6, Eos % (Auto) 0.7, Baso % (Auto) 3.0 H, Neut # (Auto) 6.6, Lymph # (Auto) 2.8, [place] # (Auto) 0.7, Eos # (Auto) 0.1, Baso # (Auto) 0.3 H 08/17/19 05:50: Sodium 142, Potassium 3.8 D, Chloride 110 H, Carbon Dioxide 25 D, Anion Gap 10.8, BUN 28 H, Creatinine 1.10 H, Estimated Creat Clear 52, Estimated GFR 48 L, Est GFR ( Amer) 58 L, Glucose 91, Calcium 8.2 L D 08/17/19 11:54: POC Glucose 105 I & O for Last 24 hours: Intake & Output 08/14/19 08/15/19 08/16/19 08/17/19 23:59 23:59 23:59 23:59 Intake Total 640 / 640 1340 / 1340 150 / 150 Output Total 350 / 610 710 / 710 375 / 375 Balance 290 / 30 630 / 630 -225 / -225 Weight 190 lb 180 lb 12.465 oz 179 lb 6 oz 178 lb 1 oz Microbiology Reports for the Last 24 Hours: Microbiology 08/14/19 22:10 Urine,Catheterized Urine Culture - Final Escherichia coli 08/14/19 23:30 Blood Blood Culture - Preliminary NO GROWTH AFTER 48 HOURS 08/14/19 23:30 Blood Blood Culture - Preliminary NO GROWTH AFTER 48 HOURS - Constitutional no acute distress - *Routine HEENT Exam Head: Present: normocephalic ENT: Present: mucous membranes moist - *Routine Neck Exam Present: full ROM, trachea midline. Absent: JVD, tracheal deviation - *Routine Respiratory Exam Present: decreased breath sounds. Absent: accessory muscle use - *Routine Cardiovascular Exam Present: RRR - *Routine Abdominal Exam Present: soft, normoactive bowel sounds. Absent: tenderness - *Routine Extremities Exam Present: pulses intact. Absent: tenderness - *Routine Skin Exam Present: intact, warm. Absent: jaundice - *Routine Neurological Exam Present: alert, altered mental status - Routine Psychiatric Exam Present: unable to assess Assessment and Plan (1) Pneumonia Current visit: Yes Status: Acute Qualifiers: Pneumonia type: due to unspecified organism Laterality: left Lung location: upper lobe of lung Qualified Code(s): J18.9 - Pneumonia, unspecified organism Category: Medical Code(s): J18.9 - Pneumonia, unspecified organism (2) COVID-19 virus detected Current visit: Yes Status: Acute Category: Medical Code(s): U07.1 - COVID-19 (3) Atrial fibrillation Current visit: Yes Status: Acute Qualifiers: Atrial fibrillation type: unspecified Qualified Code(s): I48.91 - Unspecified atrial fibrillation Category: Medical Code(s): I48.91 - Unspecified atrial fibrillation (4) Diabetes mellitus, insulin dependent (IDDM), controlled Current visit: Yes Status: Acute Category: Medical (5) COPD (chronic obstructive pulmonary disease) Current visit: Yes Status: Acute Category: Medical Code(s): J44.9 - Chronic obstructive pulmonary disease, unspecified (6) Elevated brain natriuretic peptide (BNP) level Current visit: Yes Status: Acute Category: Medical Code(s): R79.89 - Other specified abnormal findings of blood chemistry (7) Hypokalemia Current visit: Yes Status: Acute Category: Medical Code(s): E87.6 - Hypokalemia (8) Hypocalcemia Curr
--- NOTE | 2019-08-17 14:31 | DIET.NUTRFU ---
Intakes have declined to 0-25%. Glucerna bid added to diet order to increase intakes. Weight is stable. BG are wnl-moderate- ~125. Continuing to monitor.
[2019-08-17 15:09] LABS: Adenovirus F 40/41, stool Not Detected (NotDetected); Astrovirus Not Detected (NotDetected); Campylobacter Not Detected (NotDetected); Clostridium Difficile A/B, PCR Not Detected (NotDetected); Cryptosporidium Not Detected (NotDetected); Cyclospora Cayetanesis Not Detected (NotDetected); Entamoeba histolytica Not Detected (NotDetected); Enteroaggregative E coli Not Detected (NotDetected); Enteropathogenic E coli Not Detected (NotDetected); Enterotoxigenic E coli Not Detected (NotDetected); Giardia lamblia Not Detected (NotDetected); Norovirus Not Detected (NotDetected); Plesimonas Shigalloides, PCR Not Detected (NotDetected); Rotavirus A Not Detected (NotDetected); Salmonella, PCR Not Detected (NotDetected); Sapovirus Not Detected (NotDetected); Shiga-like toxin E coli Not Detected (NotDetected); Shigella Enterovasive E coli Not Detected (NotDetected); Vibrio Cholerae Not Detected (NotDetected); Vibrio, PCR Not Detected (NotDetected); Yersinia Entercolitica, PCR Not Detected (NotDetected)
[2019-08-17 17:18] LABS: POC Glucose,Bedside 111 (70-110)
--- NOTE | 2019-08-17 19:20 | PC.NURSE ---
PATIENT'S GRANDDAUGHTER PHONED, THIS RN RECEIVED PERMISSION FROM PATIENT THAT IT IS OKAY TO PASS ALONG MEDICAL INFORMATION. THIS RN PROVIDED MEDICAL INFORMATION AND SET UP A PASSWORD OF ARIADNE. THIS RN INFORMED PATIENT OF PASSWORD AND SHE AGREED. PATIENT IS A&O X4, PULSES EQUAL, PITTING EDEMA ON BLE. LUNGS ARE DIMINSHED, PATIENT DOES NOT TAKE DEEP BREATHS. THIS RN EDUCATED PATIENT IN REGARDS TO TAKING DEEP BREATHS THRU THE NOSE AND EXHALE THRU THE MOUTH. PATIENT DEMONSTRATES BUT CONTINUES TO NEED PROMPTING.
--- NOTE | 2019-08-17 20:26 | PC.NURSE ---
o2 sats decreased. O2 reapplied at 2L per NC. Pt was slow to return with sats >88%. At this time VSS and pt is resting comfortably. Will continue to monitor.
[2019-08-18] VITALS (9 sets, daily range): BP systolic 108–150; BP diastolic 48–67; PULSE 50–64; RESP 16–17; TEMP 36.3–36.9; O2SAT 80–91; BMI 37.0
[2019-08-18 00:41] LABS: POC Glucose,Bedside 87 (70-110)
--- NOTE | 2019-08-18 02:06 | PC.NURSE ---
A&OX4 PT ON 2L NC SATS RANGE BETWEEN 88-91%.DIMINISHED LUNGS SOUNDS THROUGHOUT. NO COUGH NOTED DURING SHIFT. GOLD CATHETER IN PLACE DRAINING YELLOW CLEAR URINE NO KINKS NOTED. PT RESTING COMFORTABLY IN BED. NO COMPLAINTS OF PAIN THIS SHIFT. PT HAS BEEN IN CONTACT AND [employer] PRECAUTIONS W EYE PROTECTION THROUGHOUT SHIFT.
--- NOTE | 2019-08-18 02:54 | PC.NURSE ---
Pt removed her O2, sats decreased. O2 reapplied and sat quickly returned to 88% on 2L. Current O2 sat is 93% and pt resting quietly.
[2019-08-18 05:57] LABS: POC Glucose,Bedside 81 (70-110)
--- NOTE | 2019-08-18 06:00 | XR_ITS ---
PROCEDURE: XR CHEST AP CLINICAL HISTORY: covid/pneumonia Follow-up pneumonia COMPARISON: XR CHEST PORTABLE from 08/14/2019 XR CHEST AP from 08/16/2019 XR CHEST AP from 08/17/2019 FINDINGS: Mild cardiomegaly. Persistent consolidation in the right lower lobe not significantly changed. Left perihilar consolidation or mass once again noted unchanged No acute bony abnormalities. IMPRESSION: No change right lower lobe pneumonia and left perihilar consolidation and/or mass. Dictated by: Yoel Tay MD 08/18/2019 08:06 Electronically signed by Yoel Tay MD in [facility] 08/18/2019 08:06
[2019-08-18 08:01] LABS: Chloride 111 mmol/L (98-107); Potassium 3.9 mmoL/L (3.5-5.1); Sodium 142 mmol/L (136-145)
[2019-08-18 08:04] LABS: Anion Gap 7.9 mEq/L (5-15); Blood Urea Nitrogen 29 mg/dl (7-17); Carbon Dioxide 27 mmol/L (22.0-30.0); Creatinine Clearance Estimated 42 mL/min (50-200); Estimated Glomerular Filt Rate 36 ml/min (>60); GFR (African American) 44 ML/MIN (>60); Glucose 80 mg/dl (74-100)
[2019-08-18 08:45] LABS: Basophils # 0.2 K/mm3 (0-0.2); Basophils % 1.8 % (0.1-2.0); Eosinophils # 0.1 K/mm3 (0.0-0.4); Eosinophils % 1.3 % (0.1-12.0); Hematocrit 36.7 % (37.0-47.0); Hemoglobin 11.9 g/dL (12.2-16.2); Lymphocytes # 2.7 K/mm3 (0.7-4.5); Lymphocytes % 30.4 % (10-50); Mean Corpuscular HGB Conc 32.4 g/dL (31.8-35.4); Mean Corpuscular Hemoglobin 28.2 pg (27.0-31.2); Mean Corpuscular Volume 86.8 fl (81-99); Mean Platelet Volume 10.9 fl (7.4-10.4); Monocytes # 0.6 K/mm3 (0.1-1.0); Monocytes % 6.6 % (1.7-9.3); Neutrophils # 5.4 K/mm3 (1.8-7.8); Neutrophils % 59.9 % (37.0-80.0); Platelet Count 291 K/mm3 (142-424); Red Blood Count 4.23 M/mm3 (4.20-5.40); Red Cell Distribution Width 14.8 % (11.5-17.5)
--- NOTE | 2019-08-18 09:12 | HMH.ACPN2 ---
Internal Medicine - PN: Subj *Date: 08/18/19 *Time: 09:14 Interval history: Lying in bed states she feels well Exam Vital signs and Labs for Last 24 Hours: Temp Pulse Resp BP Pulse Ox 97.7 F 57 L 17 121/67 90 L 08/18/19 07:54 08/18/19 07:54 08/18/19 07:54 08/18/19 07:54 08/18/19 07:54 Laboratory Results - last 24 hr 08/16/19 12:13: POC Glucose 125 H 08/16/19 16:18: POC Glucose 130 H 08/16/19 21:03: POC Glucose 123 H 08/17/19 01:46: POC Glucose 86 08/17/19 11:54: POC Glucose 105 08/17/19 14:10: Stl Aeromonas (PCR) Not detected, Stl C. cayetanensis PCR Not detected, Stool Rotavirus (PCR) Not detected, Stl Adenov F 40/41 PCR Not detected, Stool Astrovirus (PCR) Not detected, Stool Campylobacter PCR Not detected, Stl C.difficile Tox PCR Not detected, Stool Cryptosporidium PCR Not detected, Stl E.coli Shiga Tox PCR Not detected, Stool E coli O157 PCR Not detected, Stl Enterotoxigenic E PCR Not detected, Stool EPEC (PCR) Not detected, Stool EAEC (PCR) Not detected, Stl E. histolytica PCR Not detected, Stool Giardia Lamblia PCR Not detected, Stool Salmonella PCR Not detected, Stool Sapovirus (PCR) Not detected, Stl P. shigelloides PCR Not detected, Stl Shigella/EIEC PCR Not detected, St Y.enterocolitica PCR Not detected, Stool Vibrio (PCR) Not detected, Stl Vibrio cholerae PCR Not detected, Stl Norovirus GI/GII PCR Not detected 08/17/19 17:09: POC Glucose 111 H 08/18/19 00:14: POC Glucose 87 08/18/19 05:07: POC Glucose 81 08/18/19 07:00: WBC 9.0, RBC 4.23, Hgb 11.9 L, Hct 36.7 L, MCV 86.8, MCH 28.2, MCHC 32.4, RDW 14.8, Plt Count 291, MPV 10.9 H, Neut % (Auto) 59.9, Lymph % (Auto) 30.4, [place] % (Auto) 6.6, Eos % (Auto) 1.3, Baso % (Auto) 1.8, Neut # (Auto) 5.4, Lymph # (Auto) 2.7, [place] # (Auto) 0.6, Eos # (Auto) 0.1, Baso # (Auto) 0.2 08/18/19 07:00: Sodium 142, Potassium 3.9, Chloride 111 H, Carbon Dioxide 27, Anion Gap 7.9, BUN 29 H, Creatinine 1.40 H D, Estimated Creat Clear 42, Estimated GFR 36 L, Est GFR ( Amer) 44 L D, Glucose 80, Calcium 8.0 L I & O for Last 24 hours: Intake & Output 08/15/19 08/16/19 08/17/19 08/18/19 11:59 11:59 11:59 11:59 Intake Total 100 / 100 880 / 880 1100 / 1100 1170 / 1170 Output Total 610 / 610 825 / 825 600 / 600 Balance 100 / 100 270 / 270 275 / 275 570 / 570 Weight 181 lb 179 lb 6 oz 178 lb 1 oz 183 lb 9.6 oz Microbiology Reports for the Last 24 Hours: Microbiology 08/14/19 22:10 Urine,Catheterized Urine Culture - Final Escherichia coli - Constitutional no acute distress, morbidly obese - *Routine HEENT Exam Head: Present: normocephalic Eye: Present: PERRL ENT: Present: mucous membranes moist - *Routine Neck Exam Present: supple. Absent: lymphadenopathy - *Routine Respiratory Exam Present: decreased breath sounds, rhonchi - *Routine Cardiovascular Exam Present: RRR - *Routine Abdominal Exam Present: soft, normoactive bowel sounds, obese. Absent: tenderness - *Routine Extremities Exam Present: normal capillary refill. Absent: cyanosis, clubbing, edema - *Routine Skin Exam Present: intact, warm. Absent: rash - *Routine Neurological Exam Present: alert, oriented X3 - Routine Psychiatric Exam Present: normal affect Assessment and Plan (1) Pneumonia Current visit: Yes Status: Acute Qualifiers: Pneumonia type: due to unspecified organism Laterality: left Lung location: upper lobe of lung Qualified Code(s): J18.9 - Pneumonia, unspecified organism Category: Medical Code(s): J18.9 - Pneumonia, unspecified organism (2) COVID-19 virus detected Current visit: Yes Status: Acute Category: Medical Code(s): U07.1 - COVID-19 (3) Atrial fibrillation Current visit: Yes Status: Acute Qualifiers: Atrial fibrillation type: unspecified Qualified Code(s): I48.91 - Unspecified atrial fibrillation Category: Medical Code(s): I48.91 - Unspecified atrial fibrillation (4) Di
--- NOTE | 2019-08-18 10:04 | HMH.ACPN ---
Internal Medicine - PN: Subj *Date: 08/18/19 *Time: 10:04 Exam Vital signs and Labs for Last 24 Hours: Temp Pulse Resp BP Pulse Ox 97.7 F 54 L 17 121/67 90 L 08/18/19 07:54 08/18/19 08:00 08/18/19 07:54 08/18/19 07:54 08/18/19 07:54 Laboratory Results - last 24 hr 08/16/19 12:13: POC Glucose 125 H 08/16/19 16:18: POC Glucose 130 H 08/16/19 21:03: POC Glucose 123 H 08/17/19 01:46: POC Glucose 86 08/17/19 11:54: POC Glucose 105 08/17/19 14:10: Stl Aeromonas (PCR) Not detected, Stl C. cayetanensis PCR Not detected, Stool Rotavirus (PCR) Not detected, Stl Adenov F 40/41 PCR Not detected, Stool Astrovirus (PCR) Not detected, Stool Campylobacter PCR Not detected, Stl C.difficile Tox PCR Not detected, Stool Cryptosporidium PCR Not detected, Stl E.coli Shiga Tox PCR Not detected, Stool E coli O157 PCR Not detected, Stl Enterotoxigenic E PCR Not detected, Stool EPEC (PCR) Not detected, Stool EAEC (PCR) Not detected, Stl E. histolytica PCR Not detected, Stool Giardia Lamblia PCR Not detected, Stool Salmonella PCR Not detected, Stool Sapovirus (PCR) Not detected, Stl P. shigelloides PCR Not detected, Stl Shigella/EIEC PCR Not detected, St Y.enterocolitica PCR Not detected, Stool Vibrio (PCR) Not detected, Stl Vibrio cholerae PCR Not detected, Stl Norovirus GI/GII PCR Not detected 08/17/19 17:09: POC Glucose 111 H 08/18/19 00:14: POC Glucose 87 08/18/19 05:07: POC Glucose 81 08/18/19 07:00: WBC 9.0, RBC 4.23, Hgb 11.9 L, Hct 36.7 L, MCV 86.8, MCH 28.2, MCHC 32.4, RDW 14.8, Plt Count 291, MPV 10.9 H, Neut % (Auto) 59.9, Lymph % (Auto) 30.4, [place] % (Auto) 6.6, Eos % (Auto) 1.3, Baso % (Auto) 1.8, Neut # (Auto) 5.4, Lymph # (Auto) 2.7, [place] # (Auto) 0.6, Eos # (Auto) 0.1, Baso # (Auto) 0.2 08/18/19 07:00: Sodium 142, Potassium 3.9, Chloride 111 H, Carbon Dioxide 27, Anion Gap 7.9, BUN 29 H, Creatinine 1.40 H D, Estimated Creat Clear 42, Estimated GFR 36 L, Est GFR ( Amer) 44 L D, Glucose 80, Calcium 8.0 L I & O for Last 24 hours: Intake & Output 08/15/19 08/16/19 08/17/19 08/18/19 23:59 23:59 23:59 23:59 Intake Total 640 / 640 1340 / 1340 680 / 830 590 / 590 Output Total 350 / 610 710 / 710 675 / 675 300 / 300 Balance 290 / 30 630 / 630 5 / 155 290 / 290 Weight 82 kg 81.363 kg 80.768 kg 83.28 kg Microbiology Reports for the Last 24 Hours: Microbiology 08/14/19 22:10 Urine,Catheterized Urine Culture - Final Escherichia coli Assessment and Plan (1) Pneumonia Current visit: Yes Status: Acute Qualifiers: Pneumonia type: due to unspecified organism Laterality: left Lung location: upper lobe of lung Qualified Code(s): J18.9 - Pneumonia, unspecified organism Category: Medical Code(s): J18.9 - Pneumonia, unspecified organism (2) COVID-19 virus detected Current visit: Yes Status: Acute Category: Medical Code(s): U07.1 - COVID-19 (3) Atrial fibrillation Current visit: Yes Status: Acute Qualifiers: Atrial fibrillation type: unspecified Qualified Code(s): I48.91 - Unspecified atrial fibrillation Category: Medical Code(s): I48.91 - Unspecified atrial fibrillation (4) Diabetes mellitus, insulin dependent (IDDM), controlled Current visit: Yes Status: Acute Category: Medical (5) COPD (chronic obstructive pulmonary disease) Current visit: Yes Status: Acute Category: Medical Code(s): J44.9 - Chronic obstructive pulmonary disease, unspecified (6) Elevated brain natriuretic peptide (BNP) level Current visit: Yes Status: Acute Category: Medical Code(s): R79.89 - Other specified abnormal findings of blood chemistry (7) Hypokalemia Current visit: Yes Status: Acute Category: Medical Code(s): E87.6 - Hypokalemia (8) Hypocalcemia Current visit: Yes Status: Acute Category: Medical Code(s): E83.51 - Hypocalcemia (9) E-coli UTI Current visit: Yes Status: Acute Category: Medical Code(s): N39.0 - Urin
[2019-08-18 11:17] LABS: POC Glucose,Bedside 126 (70-110)
[2019-08-18 15:56] LABS: POC Glucose,Bedside 110 (70-110)
--- NOTE | 2019-08-18 17:56 | PC.NURSE ---
PT HAS BEEN RESTING MAJORITY OF SHIFT. REFUSED TO GET OOB. REMAINS ON 2 L O2 PER NASAL CANNULA W/ NO S/S OF RESP DISTRESS. FC DC'D EARLIER THIS SHIFT. PT HAS VOIDED ONCE SINCE THAT TIME, URINE IS CLEAR DRK YELLOW IN APPEARANCE. PT HAS HAD POOR PO INTAKE THIS SHIFT, BUT HAS DRANK 2 GLUCERNAS AND SOME OF HER DINNER. NO NEEDS VOICED. WILL CONTINUE TO MONITOR.
[2019-08-19] VITALS (7 sets, daily range): BP systolic 128–151; BP diastolic 51–62; PULSE 59–72; RESP 18–20; TEMP 36.1–37.1; O2SAT 87–97
--- NOTE | 2019-08-19 02:42 | PC.NURSE ---
Med bowel movement to start the shift. Pt insisted on getting to the bathroom. Pt unable to follow direction concerning waiting until the monitoring devices were disconnected. Partial bath, linen change, and new gown. Pt had another bm in the bed. Appears to be soft and foul odor noted. Vital signs stable, oxygen saturation 89-92% on 022LNC. Pt pleasant and appreciative of care, remains safe, monitoring continues.
[2019-08-19 03:41] LABS: POC Glucose,Bedside 127 (70-110)
[2019-08-19 05:44] LABS: POC Glucose,Bedside 91 (70-110)
--- NOTE | 2019-08-19 06:00 | XR_ITS ---
PROCEDURE: XR CHEST AP CLINICAL HISTORY: covid/pneumonia COMPARISON: XR CHEST AP from 08/16/2019 XR CHEST AP from 08/17/2019 XR CHEST AP from 08/18/2019 FINDINGS: Mild cardiomegaly without failure. Right lower lobe pneumonia not significantly changed. Perihilar consolidation on the left appears slightly worse. No acute bony abnormalities. IMPRESSION: Bilateral pneumonia which may be slightly worse in the left perihilar region Dictated by: Yoel Tay MD 08/19/2019 06:31 Electronically signed by Yoel Tay MD in [facility] 08/19/2019 06:31
[2019-08-19 06:41] LABS: Chloride 111 mmol/L (98-107); Sodium 144 mmol/L (136-145)
[2019-08-19 06:42] LABS: Potassium 3.9 mmoL/L (3.5-5.1)
[2019-08-19 06:43] LABS: Basophils # 0.1 K/mm3 (0-0.2); Basophils % 0.8 % (0.1-2.0); Eosinophils # 0.2 K/mm3 (0.0-0.4); Hematocrit 36.3 % (37.0-47.0); Hemoglobin 11.6 g/dL (12.2-16.2); Lymphocytes # 2.4 K/mm3 (0.7-4.5); Lymphocytes % 29.6 % (10-50); Mean Corpuscular HGB Conc 31.9 g/dL (31.8-35.4); Mean Corpuscular Hemoglobin 27.8 pg (27.0-31.2); Mean Corpuscular Volume 87.2 fl (81-99); Monocytes # 0.5 K/mm3 (0.1-1.0); Monocytes % 6.7 % (1.7-9.3); Neutrophils # 4.9 K/mm3 (1.8-7.8); Platelet Count 313 K/mm3 (142-424); Red Blood Count 4.16 M/mm3 (4.20-5.40); Red Cell Distribution Width 14.8 % (11.5-17.5); White Blood Count 8.1 K/mm3 (4.8-10.8)
[2019-08-19 06:44] LABS: Blood Urea Nitrogen 26 mg/dl (7-17); Creatinine Clearance Estimated 4 mL/min (50-200); Estimated Glomerular Filt Rate 39 ml/min (>60); GFR (African American) 48 ML/MIN (>60)
[2019-08-19 06:45] LABS: Anion Gap 9.9 mEq/L (5-15); Calcium 8.1 mg/dl (8.4-10.2); Carbon Dioxide 27 mmol/L (22.0-30.0); Glucose 89 mg/dl (74-100)
--- NOTE | 2019-08-19 08:32 | HMH.ACPN2 ---
Internal Medicine - PN: Subj *Date: 08/19/19 *Time: 08:15 Interval history: pt states she feels better today Exam Vital signs and Labs for Last 24 Hours: Temp Pulse Resp BP Pulse Ox 97.2 F L 62 20 133/57 L 91 L 08/19/19 08:00 08/19/19 08:00 08/19/19 08:00 08/19/19 08:00 08/19/19 08:00 Laboratory Results - last 24 hr 08/18/19 07:00: WBC 9.0, RBC 4.23, Hgb 11.9 L, Hct 36.7 L, MCV 86.8, MCH 28.2, MCHC 32.4, RDW 14.8, Plt Count 291, MPV 10.9 H, Neut % (Auto) 59.9, Lymph % (Auto) 30.4, [place] % (Auto) 6.6, Eos % (Auto) 1.3, Baso % (Auto) 1.8, Neut # (Auto) 5.4, Lymph # (Auto) 2.7, [place] # (Auto) 0.6, Eos # (Auto) 0.1, Baso # (Auto) 0.2 08/18/19 11:05: POC Glucose 126 H 08/18/19 15:49: POC Glucose 110 08/18/19 21:26: POC Glucose 127 H 08/19/19 05:23: POC Glucose 91 08/19/19 06:04: WBC 8.1, RBC 4.16 L, Hgb 11.6 L, Hct 36.3 L, MCV 87.2, MCH 27.8, MCHC 31.9, RDW 14.8, Plt Count 313, MPV 9.0, Neut % (Auto) 61.0, Lymph % (Auto) 29.6, [place] % (Auto) 6.7, Eos % (Auto) 2.0, Baso % (Auto) 0.8, Neut # (Auto) 4.9, Lymph # (Auto) 2.4, [place] # (Auto) 0.5, Eos # (Auto) 0.2, Baso # (Auto) 0.1 08/19/19 06:04: Sodium 144, Potassium 3.9, Chloride 111 H, Carbon Dioxide 27, Anion Gap 9.9, BUN 26 H, Creatinine 1.30 H, Estimated Creat Clear 4, Estimated GFR 39 L, Est GFR ( Amer) 48 L, Glucose 89, Calcium 8.1 L I & O for Last 24 hours: Intake & Output 08/16/19 08/17/19 08/18/19 08/19/19 11:59 11:59 11:59 11:59 Intake Total 880 / 880 1100 / 1100 1170 / 1170 1180 / 1180 Output Total 610 / 610 825 / 825 600 / 600 630 / 630 Balance 270 / 270 275 / 275 570 / 570 550 / 550 Weight 179 lb 6 oz 178 lb 1 oz 183 lb 9.6 oz 18 lb - Constitutional no acute distress, obese - *Routine HEENT Exam Head: Present: normocephalic Eye: Present: PERRL ENT: Present: mucous membranes moist - *Routine Neck Exam Present: supple. Absent: lymphadenopathy - *Routine Respiratory Exam Present: decreased breath sounds, CTA bilaterally - *Routine Cardiovascular Exam Present: RRR - *Routine Abdominal Exam Present: soft, normoactive bowel sounds. Absent: tenderness - *Routine Extremities Exam Present: normal capillary refill - *Routine Skin Exam Present: warm. Absent: rash - *Routine Neurological Exam Present: alert, oriented X3 - Routine Psychiatric Exam Present: normal affect Assessment and Plan (1) Pneumonia Current visit: Yes Status: Acute Qualifiers: Pneumonia type: due to unspecified organism Laterality: left Lung location: upper lobe of lung Qualified Code(s): J18.9 - Pneumonia, unspecified organism Category: Medical Code(s): J18.9 - Pneumonia, unspecified organism (2) COVID-19 virus detected Current visit: Yes Status: Acute Category: Medical Code(s): U07.1 - COVID-19 (3) Atrial fibrillation Current visit: Yes Status: Acute Qualifiers: Atrial fibrillation type: unspecified Qualified Code(s): I48.91 - Unspecified atrial fibrillation Category: Medical Code(s): I48.91 - Unspecified atrial fibrillation (4) Diabetes mellitus, insulin dependent (IDDM), controlled Current visit: Yes Status: Acute Category: Medical (5) COPD (chronic obstructive pulmonary disease) Current visit: Yes Status: Acute Category: Medical Code(s): J44.9 - Chronic obstructive pulmonary disease, unspecified (6) Elevated brain natriuretic peptide (BNP) level Current visit: Yes Status: Acute Category: Medical Code(s): R79.89 - Other specified abnormal findings of blood chemistry (7) Hypokalemia Current visit: Yes Status: Acute Category: Medical Code(s): E87.6 - Hypokalemia (8) Hypocalcemia Current visit: Yes Status: Acute Category: Medical Code(s): E83.51 - Hypocalcemia (9) E-coli UTI Current visit: Yes Status: Acute Category: Medical Code(s): N39.0 - Urinary tract infection, site not specified; B96.20 - Unspecified Escherichia coli [E. coli] as the cause of d
--- NOTE | 2019-08-19 10:24 | SW/DCPLANNER ---
Addendum entered by Irene Blair 08/19/19 17:07: Admissions and DON at [facility] is currently reviewing patient information. Addendum entered by Irene Blair 08/19/19 10:49: Malou from [facility] has also reviewed this patients information. Malou has stated that she would like for me to follow up with her Thursday morning regarding this patient. Malou is interested in this patient at this time. I will follow up with Malou on Thursday. Original Note: This patient currently resides at [facility]. Brant from [facility] has called and stated that [facility] [place] has a COVID Unit and is working closely with [place] [place] residents. I have spoke with Aurelia in Admissions and she has stated she is willing to review this patients referral. Aurelia has stated that each patient referral is a case by case basis. I will continue to follow up with Aurelia regarding this patient. Aurelia phone: Aurelia fax:
[2019-08-19 11:44] LABS: POC Glucose,Bedside 145 (70-110)
[2019-08-19 13:53] LABS: Occult Blood,Stool Negative (Negative)
[2019-08-19 16:48] LABS: POC Glucose,Bedside 115 (70-110)
--- NOTE | 2019-08-19 17:42 | PC.NURSE ---
PATIENT HAS HAD SEVERAL BM TODAY. SHE SAT IN THE CHAIR FOR A SHORT PERIOD OF TIME. SHE HAS BEEN SLEEPING MOST OF THE DAY. EARLY IN SHIFT SHE TOLD STAFF SHE NEEDS IS A BABY AND NEEDS TO BE TREATED A BABY. BM HAS BRIGHT RED BLOOD HOWEVER OCCULT STOOL WAS NEGATIVE. CALL LIGHT WITHIN REACH WILL CONTINUE TO MONITOR.
[2019-08-19 23:46] LABS: POC Glucose,Bedside 109 (70-110)
[2019-08-20] VITALS (9 sets, daily range): BP systolic 128–156; BP diastolic 46–72; PULSE 60–81; RESP 17–19; TEMP 36.5–36.9; O2SAT 90–94
[2019-08-20 01:32] LABS: POC Glucose,Bedside 120 (70-110)
[2019-08-20 04:52] LABS: Adenovirus,PCR Not Detected (NotDetected); Bordetella Pertussis Not Detected (NotDetected); Chlamydophila Pneumoniae, PCR Not Detected (NotDetected); Coronavirus 229E Not Detected (NotDetected); Coronavirus NL63 Not Detected (NotDetected); Coronavirus OC43 Not Detected (NotDetected); Coronovirus HKU1,PCR Not Detected (NotDetected); Human Metapneumovirus Not Detected (NotDetected); Influenza A, PCR Not Detected (NotDetected); Influenza AH1, 2009 Not Detected (NotDetected); Influenza AH1, PCR Not Detected (NotDetected); Influenza AH3,PCR Not Detected (NotDetected); Influenza B, PCR Not Detected (NotDetected); Mycoplasma Pneumoniae, PCR Not Detected (NotDected); Parainfluenza 1, PCR Not Detected (NotDetected); Parainfluenza 2, PCR Not Detected (NotDetected); Parainfluenza 3, PCR Not Detected (NotDetected); Parainfluenza 4, PCR Not Detected (NotDetected); Respiratory Syncytial Virus Not Detected (NotDetected); Rhinovirus/Enterovirus Not Detected (NotDetected)
--- NOTE | 2019-08-20 06:00 | XR_ITS ---
PROCEDURE: XR CHEST AP Patient Age:78Y CLINICAL HISTORY: covid/pneumonia COMPARISON: Portable upright chest of compared to 08/18/2025 08/18/2019 and 08/17/2019p CXR FINDINGS: Portable upright chest of compared to 08/18/2025 08/18/2019 and 08/17/2019p CXR Today's P CXR reveals slight progression of findings bilaterally since yesterday's CXR. Right lung: Again note infiltrate opacity and early consolidation at the lateral right lung base. It appears similar if not slightly more pronounced of with stranding towards the right infrahilar region. Also since yesterday there is now blunting at the right CP angle.-suggesting likely small pleural effusion with question of some scant fluid along the right chest wall Slight wispy infiltrate suspect towards the right upper lobe. Left lung: Increased opacity has developed retrocardiac region and extends towards lateral left lung base-this today obscures the left cardiac apex and left CP angle. Suggest developing infiltrate here at the left lower lobe with likely also small left pleural effusion obscuring left CP angle. Previously noted prominent left oma with perihilar infiltrate again seen but today this infiltrate now appears to extends slightly more peripherally/, laterally at left mid lung. Today's first officer and flight instructor film accentuate these features There is also an area of increased lung opacity projected over the left 1st rib-suspect reflects a area of developing the patchy infiltrate here (however I would note that there is a reflect a linear horizontal band of density across the upper chest which may reflect some technical component or fold within overlying gown for example, that could further accentuating density given this is a somewhat bandlike area of density just superior to the aortic arch.) Nonetheless above there is some developing infiltrate in this region towards left apex Mild cardiomegaly. Question there may be some mild vascular engorgement and possible mild vascular congestion. You may want to correlate with BNP on follow-up lab but calcified aortic knob. Chest wall unremarkable. laboratory monitor leads in place but IMPRESSION: Progression infiltrates bilaterally. Progression of multiple areas infiltrate opacities bilaterally,-with progression most evident left lung base, left mid lung and towards left lung apex New small bilateral pleural effusions. Cardiomegaly.. Additional vascular engorgement, possible mild vascular congestion Ongoing close follow-up required Dictated by: Lio Helton MD 08/20/2019 08:34 Electronically signed by Lio Helton MD in [place] 08/20/2019 08:34
[2019-08-20 06:10] LABS: POC Glucose,Bedside 96 (70-110)
--- NOTE | 2019-08-20 06:24 | PC.NURSE ---
Pt has rested on and off t/o the shift. Pt had x1 incontinent episode of orange, loose bowel movement. Active bowel sounds in all 4 quadrants. Inspiratory and expiratory rhochi at bilateral bases. Pt had removed IV on R wrist, and Jennifer Cat RN put in a new IV in pt's R forearm. Pt is currently in bed resting, with call light within reach, along with all other safety measures NO complaints at this time, will continue to monitor for any changes.
[2019-08-20 06:25] LABS: Basophils # 0.1 K/mm3 (0-0.2); Basophils % 0.8 % (0.1-2.0); Eosinophils # 0.2 K/mm3 (0.0-0.4); Eosinophils % 2.3 % (0.1-12.0); Hematocrit 35.6 % (37.0-47.0); Hemoglobin 11.7 g/dL (12.2-16.2); Lymphocytes # 1.7 K/mm3 (0.7-4.5); Lymphocytes % 22.3 % (10-50); Mean Corpuscular HGB Conc 32.9 g/dL (31.8-35.4); Mean Corpuscular Hemoglobin 28.7 pg (27.0-31.2); Mean Corpuscular Volume 87.2 fl (81-99); Mean Platelet Volume 9.9 fl (7.4-10.4); Monocytes # 0.5 K/mm3 (0.1-1.0); Monocytes % 6.2 % (1.7-9.3); Neutrophils # 5.1 K/mm3 (1.8-7.8); Neutrophils % 68.4 % (37.0-80.0); Platelet Count 276 K/mm3 (142-424); Red Blood Count 4.08 M/mm3 (4.20-5.40); Red Cell Distribution Width 14.8 % (11.5-17.5); White Blood Count 7.5 K/mm3 (4.8-10.8)
[2019-08-20 06:33] LABS: Coronavirus 19, PCR Detected (NotDetected)
[2019-08-20 06:48] LABS: Chloride 113 mmol/L (98-107); Potassium 4.2 mmoL/L (3.5-5.1); Sodium 143 mmol/L (136-145)
[2019-08-20 06:51] LABS: Anion Gap 8.2 mEq/L (5-15); Blood Urea Nitrogen 19 mg/dl (7-17); Calcium 8.3 mg/dl (8.4-10.2); Carbon Dioxide 26 mmol/L (22.0-30.0); Creatinine Clearance Estimated 6 mL/min (50-200); Estimated Glomerular Filt Rate 53 ml/min (>60); GFR (African American) 65 ML/MIN (>60); Glucose 94 mg/dl (74-100)
--- NOTE | 2019-08-20 09:15 | HMH.ACPN2 ---
Internal Medicine - PN: Subj *Date: 08/21/19 *Time: 10:04 Interval history: alert and no c/o but still on o2 Exam Vital signs and Labs for Last 24 Hours: Temp Pulse Resp BP Pulse Ox 97.7 F 68 18 133/72 90 L 08/20/19 08:00 08/20/19 08:00 08/20/19 08:00 08/20/19 08:00 08/20/19 08:00 Laboratory Results - last 24 hr 08/19/19 11:36: POC Glucose 145 H 08/19/19 13:15: Stool Occult Blood Negative 08/19/19 16:41: POC Glucose 115 H 08/19/19 21:07: POC Glucose 109 08/20/19 01:25: POC Glucose 120 H 08/20/19 04:40: Chlamy pneumoniae PCR Not detected, Adenovirus (PCR) Not detected, B. pertussis DNA (PCR) Not detected, Coronavirus OC43 (PCR) Not detected, Coronavirus HKU1 (PCR) Not detected, Coronavirus 229E (PCR) Not detected, COVID-19 PCR Detected A, Coronavirus NL63 (PCR) Not detected, Human Metapneumovir PCR Not detected, Influenza A (H1) PCR Not detected, Influ A (H1N1/09) PCR Not detected, Influenza A (H3) PCR Not detected, Influenza Type A (PCR) Not detected, Influenza Type B (PCR) Not detected, M. pneumoniae (PCR) Not detected, Parainfluenza 1 (PCR) Not detected, Parainfluenza 2 (PCR) Not detected, Parainfluenza 3 (PCR) Not detected, Parainfluenza 4 (PCR) Not detected, RSV (PCR) Not detected, Entero/Rhino (PCR) Not detected 08/20/19 05:03: POC Glucose 96 08/20/19 06:00: WBC 7.5, RBC 4.08 L, Hgb 11.7 L, Hct 35.6 L, MCV 87.2, MCH 28.7, MCHC 32.9, RDW 14.8, Plt Count 276, MPV 9.9, Neut % (Auto) 68.4, Lymph % (Auto) 22.3, [place] % (Auto) 6.2, Eos % (Auto) 2.3, Baso % (Auto) 0.8, Neut # (Auto) 5.1, Lymph # (Auto) 1.7, [place] # (Auto) 0.5, Eos # (Auto) 0.2, Baso # (Auto) 0.1 08/20/19 06:00: Sodium 143, Potassium 4.2, Chloride 113 H, Carbon Dioxide 26, Anion Gap 8.2, BUN 19 H D, Creatinine 1.00 D, Estimated Creat Clear 6, Estimated GFR 53 L, Est GFR ( Amer) 65 D, Glucose 94, Calcium 8.3 L I & O for Last 24 hours: Intake & Output 08/17/19 08/18/19 08/19/19 08/20/19 11:59 11:59 11:59 11:59 Intake Total 1100 / 1100 1170 / 1170 1180 / 1180 930 / 930 Output Total 825 / 825 600 / 600 630 / 630 2 / 2 Balance 275 / 275 570 / 570 550 / 550 928 / 928 Weight 178 lb 1 oz 183 lb 9.6 oz 18 lb Microbiology Reports for the Last 24 Hours: Microbiology 08/14/19 23:30 Blood Blood Culture - Final NO GROWTH AFTER 5 DAYS 08/14/19 23:30 Blood Blood Culture - Final NO GROWTH AFTER 5 DAYS - Constitutional no acute distress, obese - *Routine HEENT Exam Head: Present: normocephalic Eye: Present: EOMI, PERRL ENT: Present: mucous membranes dry - *Routine Neck Exam Present: supple. Absent: JVD - *Routine Respiratory Exam Present: decreased breath sounds - *Routine Cardiovascular Exam Present: RRR, murmur - *Routine Abdominal Exam Present: soft - *Routine Extremities Exam Absent: calf tenderness - *Routine Skin Exam Present: intact - *Routine Neurological Exam Present: alert, CN II-XII intact - Routine Psychiatric Exam Present: normal affect Assessment and Plan (1) Pneumonia Current visit: Yes Status: Acute Qualifiers: Pneumonia type: due to unspecified organism Laterality: left Lung location: upper lobe of lung Qualified Code(s): J18.9 - Pneumonia, unspecified organism Category: Medical Code(s): J18.9 - Pneumonia, unspecified organism (2) COVID-19 virus detected Current visit: Yes Status: Acute Category: Medical Code(s): U07.1 - COVID-19 (3) Atrial fibrillation Current visit: Yes Status: Acute Qualifiers: Atrial fibrillation type: unspecified Qualified Code(s): I48.91 - Unspecified atrial fibrillation Category: Medical Code(s): I48.91 - Unspecified atrial fibrillation (4) Diabetes mellitus, insulin dependent (IDDM), controlled Current visit: Yes Status: Acute Category: Medical (5) COPD (chronic obstructive pulmonary disease) Current visit: Yes Status: Acute Category: Medic
--- NOTE | 2019-08-20 11:13 | HMH.ACPN ---
Internal Medicine - PN: Subj *Date: 08/20/19 *Time: 11:13 Exam Vital signs and Labs for Last 24 Hours: Temp Pulse Resp BP Pulse Ox 97.7 F 68 18 133/72 90 L 08/20/19 08:00 08/20/19 08:00 08/20/19 08:00 08/20/19 08:00 08/20/19 08:00 Laboratory Results - last 24 hr 08/19/19 11:36: POC Glucose 145 H 08/19/19 13:15: Stool Occult Blood Negative 08/19/19 16:41: POC Glucose 115 H 08/19/19 21:07: POC Glucose 109 08/20/19 01:25: POC Glucose 120 H 08/20/19 04:40: Chlamy pneumoniae PCR Not detected, Adenovirus (PCR) Not detected, B. pertussis DNA (PCR) Not detected, Coronavirus OC43 (PCR) Not detected, Coronavirus HKU1 (PCR) Not detected, Coronavirus 229E (PCR) Not detected, COVID-19 PCR Detected A, Coronavirus NL63 (PCR) Not detected, Human Metapneumovir PCR Not detected, Influenza A (H1) PCR Not detected, Influ A (H1N1/09) PCR Not detected, Influenza A (H3) PCR Not detected, Influenza Type A (PCR) Not detected, Influenza Type B (PCR) Not detected, M. pneumoniae (PCR) Not detected, Parainfluenza 1 (PCR) Not detected, Parainfluenza 2 (PCR) Not detected, Parainfluenza 3 (PCR) Not detected, Parainfluenza 4 (PCR) Not detected, RSV (PCR) Not detected, Entero/Rhino (PCR) Not detected 08/20/19 05:03: POC Glucose 96 08/20/19 06:00: WBC 7.5, RBC 4.08 L, Hgb 11.7 L, Hct 35.6 L, MCV 87.2, MCH 28.7, MCHC 32.9, RDW 14.8, Plt Count 276, MPV 9.9, Neut % (Auto) 68.4, Lymph % (Auto) 22.3, [place] % (Auto) 6.2, Eos % (Auto) 2.3, Baso % (Auto) 0.8, Neut # (Auto) 5.1, Lymph # (Auto) 1.7, [place] # (Auto) 0.5, Eos # (Auto) 0.2, Baso # (Auto) 0.1 08/20/19 06:00: Sodium 143, Potassium 4.2, Chloride 113 H, Carbon Dioxide 26, Anion Gap 8.2, BUN 19 H D, Creatinine 1.00 D, Estimated Creat Clear 6, Estimated GFR 53 L, Est GFR ( Amer) 65 D, Glucose 94, Calcium 8.3 L I & O for Last 24 hours: Intake & Output 08/17/19 08/18/19 08/19/19 08/20/19 23:59 23:59 23:59 23:59 Intake Total 680 / 830 1410 / 1650 930 / 930 360 / 360 Output Total 675 / 675 900 / 930 32 / 32 Balance 5 / 155 510 / 720 898 / 898 360 / 360 Weight 80.768 kg 83.28 kg 8.165 kg Microbiology Reports for the Last 24 Hours: Microbiology 08/14/19 23:30 Blood Blood Culture - Final NO GROWTH AFTER 5 DAYS 08/14/19 23:30 Blood Blood Culture - Final NO GROWTH AFTER 5 DAYS Assessment and Plan (1) Pneumonia Current visit: Yes Status: Acute Qualifiers: Pneumonia type: due to unspecified organism Laterality: left Lung location: upper lobe of lung Qualified Code(s): J18.9 - Pneumonia, unspecified organism Category: Medical Code(s): J18.9 - Pneumonia, unspecified organism (2) COVID-19 virus detected Current visit: Yes Status: Acute Category: Medical Code(s): U07.1 - COVID-19 (3) Atrial fibrillation Current visit: Yes Status: Acute Qualifiers: Atrial fibrillation type: unspecified Qualified Code(s): I48.91 - Unspecified atrial fibrillation Category: Medical Code(s): I48.91 - Unspecified atrial fibrillation (4) Diabetes mellitus, insulin dependent (IDDM), controlled Current visit: Yes Status: Acute Category: Medical (5) COPD (chronic obstructive pulmonary disease) Current visit: Yes Status: Acute Category: Medical Code(s): J44.9 - Chronic obstructive pulmonary disease, unspecified (6) Elevated brain natriuretic peptide (BNP) level Current visit: Yes Status: Acute Category: Medical Code(s): R79.89 - Other specified abnormal findings of blood chemistry (7) Hypokalemia Current visit: Yes Status: Acute Category: Medical Code(s): E87.6 - Hypokalemia (8) Hypocalcemia Current visit: Yes Status: Acute Category: Medical Code(s): E83.51 - Hypocalcemia (9) E-coli UTI Current visit: Yes Status: Acute Category: Medical Code(s): N39.0 - Urinary tract infection, site not specified; B96.20 - Unspecified Escherichia coli [E. coli] as the
[2019-08-20 11:29] LABS: POC Glucose,Bedside 122 (70-110)
[2019-08-20 17:26] LABS: POC Glucose,Bedside 109 (70-110)
--- NOTE | 2019-08-20 18:33 | PC.NURSE ---
Pt alert and oriented x 2, to person and situation. Stated she was in [facility] and it was 1940. Informed pt of year and she stated oh yeah , and what day is it. Informed pt it was Thursdayaugust 19. Has been incont per brief. CB in reach. 02 2 L NC. NAD. No complaints. Has had no complaints this shift. VSS.
[2019-08-20 21:40] LABS: POC Glucose,Bedside 105 (70-110)
[2019-08-21] VITALS (10 sets, daily range): BP systolic 119–183; BP diastolic 58–92; PULSE 60–77; RESP 17–20; TEMP 36.4–37.2; O2SAT 90–93; BMI 36.3
--- NOTE | 2019-08-21 04:16 | PC.NURSE ---
A&OX3 T/O SHIFT. PT HAS TOLERATED 2LNC WELL. PT HAS HAD NO C/O COUGH, BUT DID GET VERY SOA WHEN ATTEMPTED TO STAND FROM BED THIS SHIFT. PT HAS SLEPT WELL T/O SHIFT. NO COMPLAINTS THUS FAR, VSS WILL CONTINUE TO MONITOR.
[2019-08-21 06:18] LABS: POC Glucose,Bedside 85 (70-110)
[2019-08-21 06:36] LABS: Basophils # 0.1 K/mm3 (0-0.2); Basophils % 0.7 % (0.1-2.0); Eosinophils # 0.3 K/mm3 (0.0-0.4); Eosinophils % 3.3 % (0.1-12.0); Hematocrit 34.9 % (37.0-47.0); Hemoglobin 11.5 g/dL (12.2-16.2); Lymphocytes # 2.3 K/mm3 (0.7-4.5); Lymphocytes % 27.8 % (10-50); Mean Corpuscular Hemoglobin 28.3 pg (27.0-31.2); Mean Corpuscular Volume 85.5 fl (81-99); Mean Platelet Volume 9.7 fl (7.4-10.4); Monocytes # 0.5 K/mm3 (0.1-1.0); Monocytes % 5.5 % (1.7-9.3); Neutrophils # 5.1 K/mm3 (1.8-7.8); Neutrophils % 62.7 % (37.0-80.0); Platelet Count 331 K/mm3 (142-424); Red Blood Count 4.08 M/mm3 (4.20-5.40); Red Cell Distribution Width 15.6 % (11.5-17.5); White Blood Count 8.1 K/mm3 (4.8-10.8)
[2019-08-21 06:45] LABS: Chloride 111 mmol/L (98-107); Potassium 4.2 mmoL/L (3.5-5.1); Sodium 142 mmol/L (136-145)
[2019-08-21 06:48] LABS: Anion Gap 7.2 mEq/L (5-15); Blood Urea Nitrogen 12 mg/dl (7-17); Calcium 8.1 mg/dl (8.4-10.2); Carbon Dioxide 28 mmol/L (22.0-30.0); Creatinine Clearance Estimated 58 mL/min (50-200); Estimated Glomerular Filt Rate 69 ml/min (>60); GFR (African American) 84 ML/MIN (>60); Glucose 79 mg/dl (74-100)
--- NOTE | 2019-08-21 10:06 | HMH.ACPN2 ---
Internal Medicine - PN: Subj *Date: 08/22/19 *Time: 07:42 Interval history: doing ok this am - labs ok Exam Vital signs and Labs for Last 24 Hours: Temp Pulse Resp BP Pulse Ox 98.6 F 63 17 119/92 H 93 L 08/21/19 08:00 08/21/19 08:00 08/21/19 08:00 08/21/19 08:00 08/21/19 08:00 Laboratory Results - last 24 hr 08/20/19 11:20: POC Glucose 122 H 08/20/19 17:17: POC Glucose 109 08/20/19 20:51: POC Glucose 105 08/21/19 05:54: POC Glucose 85 08/21/19 06:05: WBC 8.1, RBC 4.08 L, Hgb 11.5 L, Hct 34.9 L, MCV 85.5, MCH 28.3, MCHC 33.0, RDW 15.6, Plt Count 331, MPV 9.7, Neut % (Auto) 62.7, Lymph % (Auto) 27.8, [place] % (Auto) 5.5, Eos % (Auto) 3.3, Baso % (Auto) 0.7, Neut # (Auto) 5.1, Lymph # (Auto) 2.3, [place] # (Auto) 0.5, Eos # (Auto) 0.3, Baso # (Auto) 0.1 08/21/19 06:05: Sodium 142, Potassium 4.2, Chloride 111 H, Carbon Dioxide 28, Anion Gap 7.2, BUN 12 D, Creatinine 0.80, Estimated Creat Clear 58, Estimated GFR 69, Est GFR ( Amer) 84 D, Glucose 79, Calcium 8.1 L I & O for Last 24 hours: Intake & Output 08/18/19 08/19/19 08/20/19 08/21/19 11:59 11:59 11:59 11:59 Intake Total 1170 / 1170 1180 / 1180 930 / 930 880 / 880 Output Total 600 / 600 630 / 630 2 / 2 Balance 570 / 570 550 / 550 928 / 928 880 / 880 Weight 183 lb 9.6 oz 18 lb 180 lb 9 oz - Constitutional no acute distress - *Routine HEENT Exam Head: Present: normocephalic Eye: Present: EOMI, PERRL ENT: Present: mucous membranes dry - *Routine Neck Exam Present: supple - *Routine Respiratory Exam Absent: decreased breath sounds - *Routine Cardiovascular Exam Present: RRR - *Routine Abdominal Exam Present: soft - *Routine Extremities Exam Absent: calf tenderness - *Routine Skin Exam Present: intact - *Routine Neurological Exam Present: alert, CN II-XII intact - Routine Psychiatric Exam Present: normal affect Assessment and Plan (1) Pneumonia Current visit: Yes Status: Acute Qualifiers: Pneumonia type: due to unspecified organism Laterality: left Lung location: upper lobe of lung Qualified Code(s): J18.9 - Pneumonia, unspecified organism Category: Medical Code(s): J18.9 - Pneumonia, unspecified organism (2) COVID-19 virus detected Current visit: Yes Status: Acute Category: Medical Code(s): U07.1 - COVID-19 (3) Atrial fibrillation Current visit: Yes Status: Acute Qualifiers: Atrial fibrillation type: unspecified Qualified Code(s): I48.91 - Unspecified atrial fibrillation Category: Medical Code(s): I48.91 - Unspecified atrial fibrillation (4) Diabetes mellitus, insulin dependent (IDDM), controlled Current visit: Yes Status: Acute Category: Medical (5) COPD (chronic obstructive pulmonary disease) Current visit: Yes Status: Acute Category: Medical Code(s): J44.9 - Chronic obstructive pulmonary disease, unspecified (6) Elevated brain natriuretic peptide (BNP) level Current visit: Yes Status: Acute Category: Medical Code(s): R79.89 - Other specified abnormal findings of blood chemistry (7) Hypokalemia Current visit: Yes Status: Acute Category: Medical Code(s): E87.6 - Hypokalemia (8) Hypocalcemia Current visit: Yes Status: Acute Category: Medical Code(s): E83.51 - Hypocalcemia (9) E-coli UTI Current visit: Yes Status: Acute Category: Medical Code(s): N39.0 - Urinary tract infection, site not specified; B96.20 - Unspecified Escherichia coli [E. coli] as the cause of diseases classified elsewhere
[2019-08-21 10:49] LABS: POC Glucose,Bedside 133 (70-110)
--- NOTE | 2019-08-21 15:58 | PC.NURSE ---
Pt alert and oriented this shift and able to make needs known. RR even and unlabored at this time. Pt continues to be on 1 L NC at this time and tolerating well. NAD. CB in reach. Has had x 2 loose bowel movements this shift. Cardiac mx continues and cpt remains NRS at this time. Will cont to mx this shift. CB in reach.
[2019-08-21 16:55] LABS: POC Glucose,Bedside 96 (70-110)
[2019-08-21 23:52] LABS: Covid-19 Nasal PCR Sendout UK DETECTED
[2019-08-22] VITALS (7 sets, daily range): BP systolic 133–166; BP diastolic 43–55; PULSE 40–77; RESP 16–20; TEMP 36–37.4; O2SAT 90–93; BMI 36.5
[2019-08-22 01:32] LABS: POC Glucose,Bedside 85 (70-110)
--- NOTE | 2019-08-22 02:18 | PC.NURSE ---
A&OX4. PT HAS TOLERATED 1L NC WELL THROUGHOUT SHIFT. RESPIRATIONS REGULAR AND UNLABORED. LUNG SOUNDS BILATERALLY CLEAR. NO COUGH NOTED. HEART RATE REGULAR. NSR W 1ST DEGREE BLOCK ON TELE. HAND PROMOTIONS MANAGER EQUAL. PUPILS BRISK AND REACTIVE TO LIGHT. HYPOACTIVE BOWEL SOUNDS HEARD IN ALL 4 QUADRANTS. SOFT AND NONTENDER. PT ENCOURAGED TO TURN Q 2 HOURS. EXCORIATION NOTED TO ARIES AREA AND BUTTOCK AREA. +2 PULSES NOTED THROUGHOUT. PT ENCOURAGED TO USE INCENTIVE SPIROMETER Q 1 HOUR WHILE AWAKE. PT HAS REMAINED ON CONTACT AND [employer]CAUTIONS W EYE PROTECTION THROUGHOUT SHIFT. PT HAS HAD ONE LOOSE BROWN STOOL THIS SHIFT WITH PERIODS OF INCONTINENCE. PURWICK CATHETER IN PLACE. URINARY INCONTINENCE NOTED AT BEGINNING OF SHIFT PRIOR TO PLACEMENT OF PURWICK CATHETER. NO OUTPUT NOTED SINCE THEN. NO EDEMA NOTED. PT REFUSED BED BATH AND LINEN CHANGE. BED IN LOWEST POSITION. CALL LIGHT WITHIN REACH. VSS. NO CONCERNS AT THIS TIME. WILL CONTINUE TO MONITOR.
--- NOTE | 2019-08-22 05:07 | PC.NURSE ---
PROVIDED PT WITH OJ R/T FSBS OF 77
[2019-08-22 05:44] LABS: POC Glucose,Bedside 77 (70-110)
--- NOTE | 2019-08-22 06:00 | XR_ITS ---
PROCEDURE: XR CHEST PORTABLE CLINICAL HISTORY: COVID 19/ PNEUMONIA COMPARISON: XR CHEST AP from 08/18/2019 XR CHEST AP from 08/19/2019 XR CHEST AP from 08/20/2019 FINDINGS: There is mild cardiomegaly without failure. Peripheral bilateral ground-glass infiltrates are once again noted as well as left perihilar infiltrate consistent with bilateral pneumonia/COVID 19/PNEUMONIA/. Overall not significantly changed. Trace right-sided effusion suspected. IMPRESSION: No change bilateral pneumonia with possible small right effusion Dictated by: Yoel Tay MD 08/22/2019 06:44 Electronically signed by Yoel Tay MD in [facility] 08/22/2019 06:44
[2019-08-22 06:18] LABS: Basophils # 0.1 K/mm3 (0-0.2); Basophils % 0.8 % (0.1-2.0); Eosinophils # 0.3 K/mm3 (0.0-0.4); Eosinophils % 3.3 % (0.1-12.0); Hematocrit 35.9 % (37.0-47.0); Hemoglobin 11.9 g/dL (12.2-16.2); Lymphocytes # 2.6 K/mm3 (0.7-4.5); Lymphocytes % 29.6 % (10-50); Mean Corpuscular HGB Conc 33.1 g/dL (31.8-35.4); Mean Corpuscular Hemoglobin 28.2 pg (27.0-31.2); Mean Corpuscular Volume 85.1 fl (81-99); Mean Platelet Volume 9.4 fl (7.4-10.4); Monocytes # 0.6 K/mm3 (0.1-1.0); Monocytes % 6.4 % (1.7-9.3); Neutrophils # 5.2 K/mm3 (1.8-7.8); Platelet Count 342 K/mm3 (142-424); Red Blood Count 4.23 M/mm3 (4.20-5.40); Red Cell Distribution Width 15.2 % (11.5-17.5); White Blood Count 8.6 K/mm3 (4.8-10.8)
[2019-08-22 06:24] LABS: Chloride 108 mmol/L (98-107); Potassium 4.2 mmoL/L (3.5-5.1); Sodium 143 mmol/L (136-145)
[2019-08-22 06:27] LABS: Anion Gap 8.2 mEq/L (5-15); Blood Urea Nitrogen 11 mg/dl (7-17); Carbon Dioxide 31 mmol/L (22.0-30.0); Creatinine Clearance Estimated 58 mL/min (50-200); Estimated Glomerular Filt Rate 53 ml/min (>60); GFR (African American) 65 ML/MIN (>60)
[2019-08-22 06:28] LABS: Calcium 8.2 mg/dl (8.4-10.2); Glucose 74 mg/dl (74-100)
--- NOTE | 2019-08-22 07:23 | PC.NURSE ---
PT REFUSED TO GET OOB THIS AM, PT STATED I WANT TO EAT BREAKFAST IN BED. I DO NOT WANT TO GET UP RIGHT NOW.
--- NOTE | 2019-08-22 09:47 | SW/DCPLANNER ---
Addendum entered by Irene Holdenville 08/23/19 09:24: I have spoke with Julia with [facility] this morning: she is still in agreeable to accept this patient today. I have informed nursing staff (Jennifer Armijo) of report phone number. I will fax discharge information once available in computer. Patient will discharge today. Addendum entered by Irene Holdenville 08/22/19 15:15: This patient will discharge to [facility] tomorrow. Patient can not discharge today due to transportation not being available with [facility] after 4PM. Addendum entered by [facility] 08/22/19 15:06: This patient has been accepted to [facility] under the care of Dr Servando Dumont. The number to call report to once ready for discharge is [phone]. I have spoke with Samanta with [facility] and she will call me back regarding transportation. Patient may not be able to transport till tomorrow. I will continue to follow up with Wallace Young and . Addendum entered by Irene Blair 08/22/19 14:35: Julia is currently reviewing this patient information regarding admission to [facility]. Original Note: Updated patient information has been faxed to [facility] at [facility].
[2019-08-22 11:03] LABS: POC Glucose,Bedside 141 (70-110)
[2019-08-22 11:03] LABS: POC Glucose,Bedside 91 (70-110)
[2019-08-22 17:35] LABS: POC Glucose,Bedside 131 (70-110)
--- NOTE | 2019-08-22 18:35 | PC.NURSE ---
Pt has been pleasant and cooperative this shift. A&O X4. No complaints of pain or SOA. Pt complained of nausea X1 and was medicated with Zofran per MAY. Telemetry shows SB with a 1st degree AVB and occasional PAC's. Lung sounds reveal expiratory rhonchi in the bilateral upper lobes. Pt has refused to get OOB this shift and has been incontinent of bladder and bowel. Pt has had 2 large BM's this shift. Pt is receiving O2 via NC @ 2 LPM with sats. >90%. Appetite is fair and pt eats about half of the food she is given. 20 G peripheral IV in the RT AC is patent and SL. Pt received 2 total linen changes this shift, although she refused a bath. FSBS results have been 141 and 131. VSS. Call light within reach. Will continue to monitor.
--- NOTE | 2019-08-22 20:12 | HMH.ACPN2 ---
Internal Medicine - PN: Subj *Date: 08/23/19 *Time: 06:29 Interval history: doing better - still on o2 - no specific c/o Exam Vital signs and Labs for Last 24 Hours: Temp Pulse Resp BP Pulse Ox 98.2 F 60 16 133/49 L 92 L 08/22/19 16:00 08/22/19 16:00 08/22/19 16:00 08/22/19 16:00 08/22/19 16:00 Laboratory Results - last 24 hr 08/20/19 23:39: POC Glucose 91 08/21/19 05:25: SARS-CoV-2 (PCR) Detected 08/21/19 20:38: POC Glucose 85 08/22/19 04:33: POC Glucose 77 08/22/19 04:45: WBC 8.6, RBC 4.23, Hgb 11.9 L, Hct 35.9 L, MCV 85.1, MCH 28.2, MCHC 33.1, RDW 15.2, Plt Count 342, MPV 9.4, Neut % (Auto) 60.0, Lymph % (Auto) 29.6, [place] % (Auto) 6.4, Eos % (Auto) 3.3, Baso % (Auto) 0.8, Neut # (Auto) 5.2, Lymph # (Auto) 2.6, [place] # (Auto) 0.6, Eos # (Auto) 0.3, Baso # (Auto) 0.1 08/22/19 04:45: Sodium 143, Potassium 4.2, Chloride 108 H, Carbon Dioxide 31 H, Anion Gap 8.2, BUN 11, Creatinine 1.00 D, Estimated Creat Clear 58, Estimated GFR 53 L, Est GFR ( Amer) 65 D, Glucose 74, Calcium 8.2 L 08/22/19 10:50: POC Glucose 141 H 08/22/19 17:12: POC Glucose 131 H I & O for Last 24 hours: Intake & Output 08/20/19 08/21/19 08/22/19 08/23/19 11:59 11:59 11:59 11:59 Intake Total 930 / 930 880 / 880 1100 / 1100 880 / 880 Output Total 2 / 2 Balance 928 / 928 880 / 880 1100 / 1100 880 / 880 Weight 180 lb 9 oz 181 lb 3 oz - Constitutional no acute distress, obese - *Routine HEENT Exam Head: Present: normocephalic Eye: Present: EOMI, PERRL ENT: Present: mucous membranes dry - *Routine Neck Exam Present: supple - *Routine Respiratory Exam Present: decreased breath sounds - *Routine Cardiovascular Exam Present: RRR, murmur - *Routine Abdominal Exam Present: soft - *Routine Extremities Exam Absent: calf tenderness - *Routine Skin Exam Present: intact - *Routine Neurological Exam Present: alert, CN II-XII intact - Routine Psychiatric Exam Present: normal affect Assessment and Plan (1) Pneumonia Current visit: Yes Status: Acute Qualifiers: Pneumonia type: due to unspecified organism Laterality: left Lung location: upper lobe of lung Qualified Code(s): J18.9 - Pneumonia, unspecified organism Category: Medical Code(s): J18.9 - Pneumonia, unspecified organism (2) COVID-19 virus detected Current visit: Yes Status: Acute Category: Medical Code(s): U07.1 - COVID-19 (3) Atrial fibrillation Current visit: Yes Status: Acute Qualifiers: Atrial fibrillation type: unspecified Qualified Code(s): I48.91 - Unspecified atrial fibrillation Category: Medical Code(s): I48.91 - Unspecified atrial fibrillation (4) Diabetes mellitus, insulin dependent (IDDM), controlled Current visit: Yes Status: Acute Category: Medical (5) COPD (chronic obstructive pulmonary disease) Current visit: Yes Status: Acute Category: Medical Code(s): J44.9 - Chronic obstructive pulmonary disease, unspecified (6) Elevated brain natriuretic peptide (BNP) level Current visit: Yes Status: Acute Category: Medical Code(s): R79.89 - Other specified abnormal findings of blood chemistry (7) Hypokalemia Current visit: Yes Status: Acute Category: Medical Code(s): E87.6 - Hypokalemia (8) Hypocalcemia Current visit: Yes Status: Acute Category: Medical Code(s): E83.51 - Hypocalcemia (9) E-coli UTI Current visit: Yes Status: Acute Category: Medical Code(s): N39.0 - Urinary tract infection, site not specified; B96.20 - Unspecified Escherichia coli [E. coli] as the cause of diseases classified elsewhere
[2019-08-22 20:46] LABS: POC Glucose,Bedside 133 (70-110)
[2019-08-23] VITALS: PULSE 60
[2019-08-23 04:00] VITALS: BP 150/48; PULSE 53; PULSE 60; RESP 16; TEMP 36.4; O2SAT 93
--- NOTE | 2019-08-23 04:03 | PC.NURSE ---
Pt A&Ox4. pt clear throughout lung. Pt is on 2L @ NC sats between 89-92%. Heart rate regular NSR on tele. Pt ambulated once to bathroom x1 assistance. Pt had a moderate liquid BM.Pt has excessive dry buttocks no redded area barrier cream applied. Pt has no complaints of pain this shift. Pt resting comfortably.Possible D/C in this AM
--- NOTE | 2019-08-23 06:00 | XR_ITS ---
PROCEDURE: XR CHEST PORTABLE CLINICAL HISTORY: COVID 19/ PNEUMONIA COMPARISON: XR CHEST AP from 08/19/2019 XR CHEST AP from 08/20/2019 XR CHEST PORTABLE from 08/22/2019 FINDINGS: There is cardiomegaly without failure. Patchy infiltrate once again noted in the right lower lobe left perihilar region of the left lower lobe with prominence of the left hilum overall not significantly changed. There are low lung volumes. Severe degenerative changes noted in the shoulders with subacromial stenosis IMPRESSION: No change cardiomegaly with bilateral pneumonia and prominent left hilum Dictated by: Yoel Tay MD 08/23/2019 07:18 Electronically signed by Yoel Tay MD in [facility] 08/23/2019 07:18
[2019-08-23 06:22] LABS: POC Glucose,Bedside 86 (70-110)
[2019-08-23 06:35] VITALS: BMI 36.4
[2019-08-23 07:40] LABS: Basophils # 0.1 K/mm3 (0-0.2); Basophils % 0.8 % (0.1-2.0); Eosinophils # 0.3 K/mm3 (0.0-0.4); Eosinophils % 3.7 % (0.1-12.0); Hematocrit 38.4 % (37.0-47.0); Hemoglobin 12.2 g/dL (12.2-16.2); Lymphocytes # 2.6 K/mm3 (0.7-4.5); Lymphocytes % 29.5 % (10-50); Mean Corpuscular HGB Conc 31.8 g/dL (31.8-35.4); Mean Corpuscular Hemoglobin 27.6 pg (27.0-31.2); Mean Corpuscular Volume 86.7 fl (81-99); Mean Platelet Volume 9.2 fl (7.4-10.4); Monocytes # 0.4 K/mm3 (0.1-1.0); Monocytes % 4.4 % (1.7-9.3); Neutrophils # 5.4 K/mm3 (1.8-7.8); Neutrophils % 61.6 % (37.0-80.0); Platelet Count 364 K/mm3 (142-424); Red Blood Count 4.43 M/mm3 (4.20-5.40); Red Cell Distribution Width 15.5 % (11.5-17.5); White Blood Count 8.8 K/mm3 (4.8-10.8)
[2019-08-23 07:43] LABS: Chloride 106 mmol/L (98-107); Potassium 4.6 mmoL/L (3.5-5.1); Sodium 140 mmol/L (136-145)
[2019-08-23 07:46] LABS: Blood Urea Nitrogen 14 mg/dl (7-17); Creatinine Clearance Estimated 53 mL/min (50-200); Estimated Glomerular Filt Rate 48 ml/min (>60); GFR (African American) 58 ML/MIN (>60)
[2019-08-23 07:47] LABS: Anion Gap 7.6 mEq/L (5-15); Calcium 8.4 mg/dl (8.4-10.2); Carbon Dioxide 31 mmol/L (22.0-30.0); Glucose 96 mg/dl (74-100)
[2019-08-23 08:00] VITALS: BP 151/49; PULSE 57; RESP 16; TEMP 36.7; O2SAT 91
--- NOTE | 2019-08-23 09:32 | HMH.DCSUM ---
General - General Admission date:: 08/15/19 Discharge date: 08/23/19 HPI HPI: 78-year-old female patient lying in bed resting quietly awakens to verbal stimuli. Discussed her discharge today to extended care facility, she is agreeable to this 78 yo female resident of [facility] sent to ED for SOA, cough,and malaise for 1 week. Pt states several episodes of vomiting and diarrhea as well.Past medical history significant for diabetes, coronary artery disease, hypothyroidism, COPD, arthritis Found to have bilateral pneumonia and tested positive for COVID 19. Telemetry and EKG reveals A. fib with RVR that has improved to rates down around 100 bpm without rate control medication addition. Initial troponin is normal. BNP noted to be greater than 5000 with no definitive results of CHF noted on chest x-ray. Mild hypoxia has responded well to 1 L of oxygen therapy. She was noted to have oxygen saturations of 88 to 89% on room air at [place] where she resides. Pt admitted for Bilateral pneumonia with cardiomegaly and Positive COVID test. Hospital Course Hospital Course: 78 yo female resident of [facility] sent to ED for SOA, cough,and malaise for 1 week. Pt states several episodes of vomiting and diarrhea as well.Past medical history significant for diabetes, coronary artery disease, hypothyroidism, COPD, arthritis Found to have bilateral pneumonia and tested positive for COVID 19. Telemetry and EKG reveals A. fib with RVR that has improved to rates down around 100 bpm without rate control medication addition. Initial troponin is normal. BNP noted to be greater than 5000 with no definitive results of CHF noted on chest x-ray. Mild hypoxia has responded well to 1 L of oxygen therapy. She was noted to have oxygen saturations of 88 to 89% on room air at [place] where she resides. Pt admitted for Bilateral pneumonia with cardiomegaly and Positive COVID test. 08/14/19 CXR: IMPRESSION: Bilateral pneumonia with cardiomegaly. Cannot exclude left hilar mass. Consider chest CT with contrast for further evaluation Dictated by: Dr. Tay, 08/15/19 2-D ECHO: Conclusion 1. Enlarged left atrium, normal left ventricular size, mild concentric left ventricular hypertrophy, visually estimated ejection fraction 55% with no regional wall motion abnormality, diastolic parameters are inconclusive. 2. Thickened and calcified aortic valve without Doppler evidence of aortic stenosis, there is moderate aortic insufficiency. 3. Mild mitral and tricuspid regurgitation. 4. No significant pericardial effusion noted. Electronically signed by : Boston Moss 08/23/19 CXR: IMPRESSION: No change cardiomegaly with bilateral pneumonia and prominent left hilum Dictated by: Dr. Tay, Blood cultures negative x2, urine culture grew E. coli and she has been treated with ceftriaxone and azithromycin for that. She was also positive for COVID-19. Occult stool test have been negative. She has also received clindamycin during her stay. She is currently satting 94% on 2 L nasal cannula, white blood count is 8.8 and. She has been afebrile for several days. Physical therapy is seen and she is up walking in room, sitting in chair for all meals, and using bedside commode Objective Vital signs: Temp Pulse Resp BP Pulse Ox 98.0 F 57 L 16 151/49 H 91 L 08/23/19 08:00 08/23/19 08:00 08/23/19 08:00 08/23/19 08:00 08/23/19 08:00 no acute distress - *Routine HEENT Exam Head: Present: normocephalic ENT: Present: mucous membranes moist - *Routine Neck Exam Present: full ROM, trachea midline. Absent: JVD, tracheal deviation - *Routine Respiratory Exam Present: decreased breath sounds. Absent: accessory muscle use - *Routine Cardiovascular Exam Present: RRR. Absent: murmur - *Routine Abdominal Exam Present: soft, normoactive bowel sounds. Absent: tenderness - *Routine Extremities Exam Present: full ROM, pulses intact. Abse
[2019-08-23 12:00] VITALS: BP 153/58; PULSE 60; RESP 18; TEMP 36.2; O2SAT 94
[2019-08-23 12:33] LABS: POC Glucose,Bedside 143 (70-110)
[2019-08-23 15:09] LABS: Covid-19 Nasal PCR Sendout Lex NOT DETECTED
== END 2019-08-23 14:44 | DRG 177 ==
LOC: ER 23:16 → ICU 08-15 12:18
PROVIDERS: Internal Medicine Adolescent Medicine; Nurse Practitioner Family; Physician Assistant; Admitting Provider Emergency Medicine; Emergency Provider Emergency Medicine; PCP Emergency Medicine; Visit Provider Emergency Medicine
DX: U07.1 COVID-19 (principal); J12.89 Other viral pneumonia; J81.0 Acute pulmonary edema; N39.0 Urinary tract infection, site not specified; J44.9 Chronic obstructive pulmonary disease, unspecified; I25.2 Old myocardial infarction; Z95.5 Presence of coronary angioplasty implant and graft; I48.91 Unspecified atrial fibrillation; I12.9 Hypertensive chronic kidney disease with stage 1 through stage 4 chronic kidney disease, or unspecified chronic kidney disease; E11.22 Type 2 diabetes mellitus with diabetic chronic kidney disease; N18.3 Chronic kidney disease, stage 3 (moderate); Z79.4 Long term (current) use of insulin; Z79.51 Long term (current) use of inhaled steroids; Z79.82 Long term (current) use of aspirin; Z79.899 Other long term (current) drug therapy; B96.20 Unspecified Escherichia coli [E. coli] as the cause of diseases classified elsewhere
CPT/HCPCS: 36415; 71045; 80048; 80053; 81001; 82272; 82962; 83605; 83735; 83880; 84484; 85025; 86328; 87040; 87086; 87088; 87186; 87507; 87581; 87633; 87798; 92610; 93005; 93306; 94761; 96365; 96375; 99285; G0328; J0456; J2405; U0003; U0004

== ENCOUNTER 2020-01-25 09:14 | Inpatient (IN) | payer MEDICARE, OTHER, SELFPAY ==
[2020-01-25] VITALS (9 sets, daily range): BP systolic 158–209; BP diastolic 57–78; PULSE 60–91; RESP 16–22; TEMP 37–37.4; O2SAT 88–98; BMI 37.8; BMI 36.1
--- NOTE | 2020-01-25 09:19 | ECG_ITS ---
APPROVED REPORT Exam: Resting ECG HR:79 bpm ECG Measurements Heart Rate 79 AXES WY 188 P 14 QRSd 84 QRS -33 QT 388 T 68 QTc 444 Conclusion Normal sinus rhythm Left axis deviation LAHB Abnormal ECG Electronically signed by : Giancarlo James, 01/27/2020 17:04:38
--- NOTE | 2020-01-25 09:19 | HMH.EDGENADL ---
ED Disposition Clinical Impression: COPD exacerbation Community acquired pneumonia Qualifiers: Laterality: right Lung location: lower lobe of lung Qualified Code(s): J18.9 - Pneumonia, unspecified organism Disposition: Admitted as Observation Condition on Discharge: Fair Referrals: Reggie Gandhi MD [Primary Care Provider] - - Critical Care Critical Care Time: No Attestation: On , the high probability of a clinically significant, sudden or life threatening deterioration of the following system(s) required my full and direct attention, intervention and personal management. The time I documented below is in addition to time spent performing reported procedures but includes the following listed in this critical care notation. Medical Decision Making - Medical Records Medical records reviewed: Yes: I reviewed the patient's medical records. MR Comment: Positive Covid PCR and serology in August. - Cristian Inquiry Pt receiving controlled substance: No Vital Signs: 01/25/20 09:14 01/25/20 10:37 01/25/20 11:44 Temperature 98.8 F Temperature Source Oral Pulse Rate [Radial] 91 H 60 86 Respiratory Rate 20 18 20 Blood Pressure [Right Arm] 200/68 H 190/69 H 209/72 H Blood Pressure Mean [Right Arm] 112 109 117 Blood Pressure Source [Right Arm] Automatic Cuff Blood Pressure Position [Right Arm] Sitting Sitting Sitting 02 Sat by Pulse Oximetry 98 95 95 Oxygen Delivery Method Room Air Room Air - Lab Data Lab results reviewed: Yes: I reviewed the patient's lab results. Lab Results 01/25/20 09:15: Troponin I < 0.01 01/25/20 09:15: WBC 11.7 H, RBC 5.31, Hgb 13.2, Hct 43.6, MCV 82.1, MCH 24.8 L, MCHC 30.2 L, RDW 15.8, Plt Count 297, MPV 9.1, Neut % (Auto) 61.5, Lymph % (Auto) 27.4, [place] % (Auto) 5.4, Eos % (Auto) 4.7, Baso % (Auto) 1.0, Neut # (Auto) 7.2, Lymph # (Auto) 3.2, [place] # (Auto) 0.6, Eos # (Auto) 0.6 H, Baso # (Auto) 0.1 01/25/20 09:15: Sodium 138, Potassium 4.3, Chloride 103, Carbon Dioxide 28, Anion Gap 11.3, BUN 15, Creatinine 1.00, Estimated Creat Clear 59, Estimated GFR 53 L, Est GFR ( Amer) 64, Glucose 140 H, Calcium 9.2, Total Bilirubin 0.5, AST 37 H, ALT 26, Alkaline Phosphatase 164 H, Total Protein 7.6, Albumin 3.9, Globulin 3.7 H, Albumin/Globulin Ratio 1.1 01/25/20 09:15: Lactate 1.4 01/25/20 09:15: SARS-CoV-2 IgG Ab (Rapid) Positive A, SARS-CoV-2 IgM Ab (Rapid) Negative 01/25/20 09:15: Procalcitonin 0.050 01/25/20 09:35: Influenza Type A Ag Negative, Influenza Type B Ag Negative 01/25/20 09:35: Group A Strep Rapid Negative Result diagrams: 01/25/20 09:15 01/25/20 09:15 Orders (Tests/Meds): ED MEDICATIONS Generic Name Dose Route Start Last Admin Trade Name Gerardoq PRN Reason Stop Dose Admin Ceftriaxone Sodium 1 gm/ 50 mls @ 100 mls/hr 01/25/20 11:45 01/25/20 11:46 Sodium Chloride IV 02/08/20 11:44 100 mls/hr Q24H LONNIE Administration Protocol Azithromycin 500 mg/ Sodium 250 mls @ 250 mls/hr 01/25/20 11:45 01/25/20 12:28 Chloride IV 02/08/20 11:44 250 mls/hr Q24H LONNIE Administration Protocol ORDERS Category Date Time Status XR chest portable Stat Exams 01/25/20 09:29 Taken Troponin I Q3H Lab 01/25/20 12:30 Ordered Troponin I Q3H Lab 01/25/20 15:30 Ordered Blood Culture Stat Micro 01/25/20 09:32 Received Strep Screen Confirmation Stat Micro 01/25/20 09:35 Received - Radiology Data #1 Image(s): Chest Image Reviewed: Yes I reviewed the patient's radiology image Elevated right diaphragm with right basilar airspace disease - ECG Data Tracing #1 EKG interpreted by Venkat Carter MD: Rhythm: sinus Rate: 79 [place]: Left Ectopy: none Conduction: normal ST Segment Changes: none T Wave Changes: none Q Waves: Septal Poor R wave progression - Physician Consults Physician Consulted: Oksana Time: 12:52 Reason -: Admission Comment/Response: Prefers to admit the patient to the hospital. We discussed the patient's cli
--- NOTE | 2020-01-25 09:29 | XR_ITS ---
PROCEDURE: XR CHEST PORTABLE CLINICAL HISTORY: sob Shortness of breath COMPARISON: CR XR CHEST AP from 08/20/2019 CR XR CHEST PORTABLE from 08/22/2019 CR XR CHEST PORTABLE from 08/23/2019 FINDINGS: There is mild cardiomegaly. Consolidation is present in the right lower lobe consistent with pneumonia with elevated right hemidiaphragm. No acute bony abnormalities. IMPRESSION: Right lower lobe pneumonia Dictated by: Yoel Tay MD 01/25/2020 14:01 Yoel Tay MD in [place] 01/25/2020 14:01
[2020-01-25 09:49] LABS: Basophils # 0.1 K/mm3 (0-0.2); Eosinophils # 0.6 K/mm3 (0.0-0.4); Eosinophils % 4.7 % (0.1-12.0); Hematocrit 43.6 % (37.0-47.0); Hemoglobin 13.2 g/dL (12.2-16.2); Lymphocytes # 3.2 K/mm3 (0.7-4.5); Lymphocytes % 27.4 % (10-50); Mean Corpuscular HGB Conc 30.2 g/dL (31.8-35.4); Mean Corpuscular Hemoglobin 24.8 pg (27.0-31.2); Mean Corpuscular Volume 82.1 fl (81-99); Mean Platelet Volume 9.1 fl (7.4-10.4); Monocytes # 0.6 K/mm3 (0.1-1.0); Monocytes % 5.4 % (1.7-9.3); Neutrophils # 7.2 K/mm3 (1.8-7.8); Neutrophils % 61.5 % (37.0-80.0); Platelet Count 297 K/mm3 (142-424); Red Blood Count 5.31 M/mm3 (4.20-5.40); Red Cell Distribution Width 15.8 % (11.5-17.5); White Blood Count 11.7 K/mm3 (4.8-10.8)
[2020-01-25 09:50] LABS: Chloride 103 mmol/L (98-107); Potassium 4.3 mmoL/L (3.5-5.1); Sodium 138 mmol/L (136-145)
[2020-01-25 09:52] LABS: Blood Urea Nitrogen 15 mg/dl (7-17); Creatinine Clearance Estimated 59 mL/min (50-200); Estimated Glomerular Filt Rate 53 ml/min (>60); GFR (African American) 64 ML/MIN (>60)
[2020-01-25 09:53] LABS: Alanine Aminotransferase 26 U/L (12-78); Albumin Level 3.9 g/dl (3.5-5.0); Albumin/Globulin Ratio 1.1 (1.1-1.8); Alkaline Phosphatase 164 U/L (38-126); Anion Gap 11.3 mEq/L (5-15); Aspartate Amino Transferase 37 U/L (14-36); Bilirubin,Total 0.5 mg/dl (0.2-1.3); Calcium 9.2 mg/dl (8.4-10.2); Carbon Dioxide 28 mmol/L (22.0-30.0); Globulin 3.7 g/dL (1.3-3.2); Glucose 140 mg/dl (74-100); Total Protein,Serum 7.6 g/dl (6.3-8.2)
[2020-01-25 09:57] LABS: Strep Scrn Group A (Rapid) Negative (Negative)
[2020-01-25 09:59] LABS: Lactic Acid 1.4 mmol/L (0.7-2.1)
[2020-01-25 10:06] LABS: Troponin I < 0.01 ng/ml (0.00-0.034)
[2020-01-25 10:25] LABS: Coronavirus 19 IgG Antibody Positive (Negative); Coronavirus 19 IgM Antibody Negative (Negative)
--- NOTE | 2020-01-25 11:47 | PC.NURSE ---
Pt given meal tray
--- NOTE | 2020-01-25 12:43 | PC.NURSE ---
pt up sitting in wheelchair, no c/o at present
--- NOTE | 2020-01-25 12:48 | PC.NURSE ---
MENA APARICIO speaking with Dr. Gandhi
--- NOTE | 2020-01-25 13:20 | P.CONPHA_ITS ---
[facility] Pharmacy VTE Monitoring - Patient Demographics Admission date: 01/25/20 Report Date: 01/25/20 Time: 13:20 Allergies/Adverse Reactions: Patient Allergies codeine Allergy (Verified 08/14/19 22:45) Height: 1.5 m Weight: 84.822 kg Patient Problems: Current Active Problems Community acquired pneumonia (Acute) COPD exacerbation (Acute) - VTE Risk Labs: VTE Related Lab Results Hgb 13.2 g/dL (12.2-16.2) 01/25/20 09:15 Hct 43.6 % (37.0-47.0) 01/25/20 09:15 Plt Count 297 K/mm3 (142-424) 01/25/20 09:15 BUN 15 mg/dl (7-17) 01/25/20 09:15 Creatinine 1.00 mg/dl (0.52-1.04) 01/25/20 09:15 Estimated Creat Clear 59 mL/min (50-200) 01/25/20 09:15 - Prophylaxis VTE Prophylaxis Ordered?: Yes Types of VTE Prophylaxis: TEDS Knee High Location of Applied Device: Bilateral Lower Extremeties
[2020-01-25 13:50] LABS: Troponin I < 0.01 ng/ml (0.00-0.034)
--- NOTE | 2020-01-25 14:21 | HMH.PHAINT ---
MEDICATION RECONCILIATION COMPLETED ON PATIENT USING MAR FROM [facility]. -TERESA RODRIGUZE, PHILLD
[2020-01-25 16:29] LABS: POC Glucose,Bedside 127 (70-110)
[2020-01-25 16:36] LABS: Troponin I < 0.01 ng/ml (0.00-0.034)
--- NOTE | 2020-01-25 16:36 | PC.ADMIT ---
Admission Note: Pt admitted w/ bilat pna. Remains on room air w/ no s/s of resp distress. Sputum specimen collected and sent to lab this shift. Pt has been resting w/ no complaints voiced since arriving to floor. Ambulates independently w/ no safety concerns. Lungs diminished upon auscultation. Abdomen soft, non-tender w/ active BS. Pt reports BM this morning. Voiding w/o difficulty. Urine noted to be drk yellow w/ strong odor. No edema noted. Skin intact. Pt is A&O x4. Teds in place to BLE. Call villa w/in reach. The patient,Cece Chambers,79 y/o, was given written information regarding hospital policies, unit procedures and contact persons. Vital Signs - 8 hr 01/25/20 09:14 01/25/20 10:37 01/25/20 11:44 Temperature 98.8 F Pulse Rate Pulse Rate [Radial] 91 H 60 86 Respiratory Rate 20 18 20 Blood Pressure Blood Pressure [Right Arm] 200/68 H 190/69 H 209/72 H 02 Sat by Pulse Oximetry 98 95 95 01/25/20 13:40 01/25/20 14:26 01/25/20 14:34 Temperature 98.8 F 99.4 F Pulse Rate 86 60 Pulse Rate [Radial] 82 Respiratory Rate 17 18 Blood Pressure 190/69 H Blood Pressure [Right Arm] 158/78 H 02 Sat by Pulse Oximetry 96 01/25/20 16:00 Temperature 99.0 F Pulse Rate Pulse Rate [Radial] 71 Respiratory Rate 16 Blood Pressure Blood Pressure [Right Arm] 164/57 H 02 Sat by Pulse Oximetry 95
--- NOTE | 2020-01-25 19:16 | PC.NURSE ---
report given to selvin
--- NOTE | 2020-01-25 20:13 | HMH.HP ---
*Admission Date: 01/25/20 *Chief complaint: sob *History of present illness: this pt of a local [facility] -rought in by ambulance from [facility]. Chief complaint is reported to be cough. Nurse reports patient also complains of chest pain and shortness of breath. EMS reports that patient told him she has been sick all week, but that staff told her you will be all right . Patient reported to nursing staff here that she is already had Covid . The patient tells me that she has been sick for 1 week with a cough, rhinorrhea, sore throat. She thinks she has had a fever but it has not been documented at [facility]. She has a frontal headache. She had diarrhea a couple of days ago, resolved. She has had some vomiting. pt was admitted with ivf and abx - [facility] History I have reviewed the patient's past medical history: Yes Medical History: Reports:: Atrial Fibrillation, Congestive Heart Failure, Chronic Obstructive Pulmonary Disease (COPD), Coronary Artery Disease, Diabetes Mellitus Type 2, Hyperlipidemia, Hypertension, Myocardial Infarction Denies:: Cancer, Diabetes Mellitus Type 1, MRSA *Have you ever received a pneumonia vaccine?: Yes *Have you received a flu vaccine this season?: Yes Other Medical History: Reports: Arthritis, Hypothyroidism Other Surgeries: Yes: Cardiac Catheterization, Coronary Stent Amputation: No - *Social History Last grade of school completed: 7th or 8th Alcohol Intake: never *Occupational Status:: disabled Housing: assisted living facility Household Members: other *Travel in the last 8 weeks: None Family Hx:: Diabetes, Heart Attack Review of Systems - Review of Systems Review of systems:: pertinent systems reviewed and negative unless documented below - Constitutional Reports weakness, Denies fever(s) - Eyes Denies change in vision - ENT Denies sore throat - *Cardiovascular Reports chest pain at rest, Reports shortness of breath - *Respiratory Reports cough, Reports shortness of breath - *Gastrointestinal Denies abdominal pain - *Genitourinary Denies blood in urine - *Musculoskeletal Denies joint pain - Integumentary/Breasts Denies rash - *Neurologic Reports headache(s), Reports weakness, Denies localized weakness - Psychiatric Denies anxiety Meds Home Medications Medication Instructions Recorded Confirmed Type Furosemide [Furosemide 20mg Tab*] 20 mg PO DAILY 08/14/19 01/25/20 History Insulin Glargine,Hum.rec.anlog 15 unit SQ HS 08/14/19 01/25/20 History [Lantus Insulin 100units/mL 10mL vial] Levothyroxine Sodium 25 mcg PO DAILY 08/14/19 01/25/20 History [Levothyroxine 25mcg (0.025mg) Tab] Linagliptin [Tradjenta 5mg tablet] 5 mg PO DAILY 08/14/19 01/25/20 History Losartan Potassium [Cozaar 50mg 50 mg PO DAILY 08/14/19 01/25/20 History Tablets] Acetaminophen [Acetaminophen 325mg 650 mg PO Q4H PRN 08/15/19 01/25/20 History tab] Albuterol Sulfate [Ventolin HFA 2 puffs IH Q6HP PRN 08/15/19 01/25/20 History Inhaler] Aspirin [Aspirin 81mg chewable 81 mg PO DAILY 08/15/19 01/25/20 History tab] Cholecalciferol (Vitamin D3) 1,000 unit PO DAILY 08/15/19 01/25/20 History [Vitamin D3 1,000 Unit Tab] Cyanocobalamin (Vitamin B-12) 1,000 mcg PO DAILY 08/15/19 01/25/20 History [Vitamin B-12 1000mcg Tablet] Fluticasone Propionate [Flonase 1 spray NS DAILY 08/15/19 01/25/20 History Allergy Relief NS] Sennosides/Docusate Sodium [Senna 2 each PO DAILYP PRN 01/25/20 01/25/20 History Plus 8.6-50 mg Tablet] dilTIAZem HCL [Diltiazem HCl] 90 mg PO BID 01/25/20 01/25/20 History Allergies Allergy/AdvReac Type Severity Reaction Status Date / Time codeine Allergy Verified 08/14/19 22:45 Exam Vital signs and Labs for Last 24 Hours: Temp Pulse Resp BP Pulse Ox 99.0 F 91 H 16 164/57 H 88 L 01/25/20 16:00 01/25/20 19:43 01/25/20 16:00 01/25/20 16:00 01/25/20 19:43 Laboratory Results - last 24
[2020-01-25 21:08] LABS: POC Glucose,Bedside 293 (70-110)
[2020-01-26] VITALS (7 sets, daily range): BP systolic 148–186; BP diastolic 64–79; PULSE 75–98; RESP 17–22; TEMP 36.8–36.9; O2SAT 93–97; BMI 36.5
--- NOTE | 2020-01-26 04:32 | PC.NURSE ---
Pt is alert and oriented x4. Pt has rested well with eyes closed this shift with no complaints. No reports of pain when asked. Tolerated 1.5 lnc well with no c/o SOA. Will attempt to wean to RA this am. Bilateral lungs noted diminished t/o upon auscultation. Pt noted with productive cough with no phlegm, clear sputum noted. Adequate urine noted this shift. No edema noted. TEDS noted on BLE. Pt ambulates well with standby assist. VSS. Remains safe. Call light within reach. Will continue to monitor.
[2020-01-26 06:36] LABS: Basophils % 0.2 % (0.1-2.0); Eosinophils % 0.3 % (0.1-12.0); Hematocrit 41.8 % (37.0-47.0); Hemoglobin 12.3 g/dL (12.2-16.2); Lymphocytes # 1.7 K/mm3 (0.7-4.5); Lymphocytes % 16.5 % (10-50); Mean Corpuscular HGB Conc 29.5 g/dL (31.8-35.4); Mean Corpuscular Hemoglobin 24.7 pg (27.0-31.2); Mean Corpuscular Volume 83.8 fl (81-99); Mean Platelet Volume 8.8 fl (7.4-10.4); Monocytes # 0.2 K/mm3 (0.1-1.0); Monocytes % 1.9 % (1.7-9.3); Neutrophils # 8.4 K/mm3 (1.8-7.8); Neutrophils % 81.1 % (37.0-80.0); Platelet Count 266 K/mm3 (142-424); Red Blood Count 4.99 M/mm3 (4.20-5.40); Red Cell Distribution Width 15.9 % (11.5-17.5); White Blood Count 10.4 K/mm3 (4.8-10.8)
[2020-01-26 06:41] LABS: Chloride 108 mmol/L (98-107); Potassium 4.6 mmoL/L (3.5-5.1); Sodium 139 mmol/L (136-145)
[2020-01-26 06:44] LABS: Anion Gap 9.6 mEq/L (5-15); Blood Urea Nitrogen 23 mg/dl (7-17); Carbon Dioxide 26 mmol/L (22.0-30.0); Creatinine Clearance Estimated 48 mL/min (50-200); Estimated Glomerular Filt Rate 43 ml/min (>60); GFR (African American) 52 ML/MIN (>60)
[2020-01-26 06:45] LABS: Calcium 8.8 mg/dl (8.4-10.2); Glucose 236 mg/dl (74-100)
[2020-01-26 07:16] LABS: Magnesium 2.2 mg/dl (1.6-2.3)
--- NOTE | 2020-01-26 08:00 | CA_ITS ---
APPROVED REPORT EXAM: Comprehensive 2D, Doppler, and color-flow Echocardiogram Immersion [employer]er: Arminda Hager CRT Ht: 4 ft 11 in Wt: 179lbs BSA: 1.76 BP: 132/69 mmHg Indications: MURMUR,CAD,AF,CHF 2D Dimensions LVOT 1.96 cm (M/F) 1.5-2.5 M-Mode Dimensions RVDd 2.32 cm (0.9-2.6) LA Diam 4.13 cm (1.9-4.0) LVDd 4.90 cm (3.5-5.7) Ao Diam 2.56 cm (2.0-3.7) LVDs 3.57 cm (3.5-5.7) IVSd 1.07 cm (0.6-1.1) PWd 1.16 cm (0.6-1.1) EF (Teich) 52.70% FS 27.10% EDV (Teich) 112.80 mL ESV (Teich) 53.30 mL LV Diastology E Decel Time 178.00 (160-240 msec) E/A Ratio 1.6 MED E' 3.80 (< 7 cm/sec) E'/MED E' Ratio 37.95 (>14) LAT E' 3.90 (<10 cm/sec) E/LAT E' Ratio 36.97 (>14) Aortic Valve LVOT Max 193.00 (70-110 cm/s) LVOT VTI 30.05 cm AoV Peak Merritt. 219.00 (50-130 cm/s) AI PHT 461.00 ms AO Peak GR. 19.10 mmHg AO Mean GR. 12.60 (<5 mmHg) AO VTI 49.55 (18-25 cm) ELROY (VTI) 1.83 (2.5-4.5 cm2) Mitral Valve MV E Max Merritt. 144.00 (40-130 cm/s) MV A Velocity 91.00 (40-130 cm/s) E/A Ratio 1.58 MV Decel. Time 178.00 (160-240 ms) MV PHT 52.00 ms Left Ventricle Left atrium is moderately enlarged, left ventricle is normal size, mild concentric left ventricular hypertrophy, visually estimated ejection fraction 55% with no regional wall motion abnormality, diastolic parameters are inconclusive. Right Ventricle Right atrium and right ventricle mildly enlarged with normal contractility. Aortic Valve Aortic valve is thickened and calcified, mean gradient across valve is 12 mmHg, represents mild aortic stenosis, there is mild aortic insufficiency. Mitral Valve Mitral valve has mitral annular calcification, which extends in both anterior and posterior mitral leaflet, there is mitral stenosis present which is difficult to quantify with this study, repeat study with better Doppler technique to determine mean gradient and pressure half-time to calculated mitral valve area is recommended. There is mild mitral regurgitation. Tricuspid Valve Tricuspid valve is grossly normal, there is mild tricuspid regurgitation. Pulmonic Valve Pulmonic valve is poorly visualized. Great Vessels Aortic root is normal size. Pericardium No significant pericardial effusion noted. Conclusion 1. Moderately enlarged left atrium, normal left ventricular size, mild concentric left ventricular hypertrophy, visually estimated ejection fraction 55% with no regional wall motion abnormality, diastolic parameters are inconclusive. 2. Thickened and calcified aortic valve with mild aortic stenosis, there is mild aortic insufficiency. 3. Abnormal mitral valve as described above, repeat study with better Doppler technique is recommended to evaluate the degree of mitral stenosis. 4. Mild mitral and tricuspid regurgitation. 5. No significant pericardial effusion noted. Electronically signed by : Boston Moss, 01/26/2020 14:16:23
[2020-01-26 10:48] LABS: POC Glucose,Bedside 209 (70-110)
[2020-01-26 11:43] LABS: POC Glucose,Bedside 269 (70-110)
--- NOTE | 2020-01-26 13:04 | HMH.ACPN2 ---
Internal Medicine - PN: Subj *Date: 01/26/20 *Time: 08:45 Interval history: pt laying in bed states no c/o Exam Vital signs and Labs for Last 24 Hours: Temp Pulse Resp BP Pulse Ox 98.4 F 94 H 18 186/79 H 93 L 01/26/20 08:00 01/26/20 08:00 01/26/20 08:00 01/26/20 08:00 01/26/20 08:00 Laboratory Results - last 24 hr 01/25/20 12:30: Troponin I < 0.01 01/25/20 15:45: Troponin I < 0.01 01/25/20 16:22: POC Glucose 127 H 01/25/20 20:46: POC Glucose 293 H 01/26/20 05:58: WBC 10.4, RBC 4.99, Hgb 12.3, Hct 41.8, MCV 83.8, MCH 24.7 L, MCHC 29.5 L, RDW 15.9, Plt Count 266, MPV 8.8, Neut % (Auto) 81.1 H, Lymph % (Auto) 16.5, [place] % (Auto) 1.9, Eos % (Auto) 0.3, Baso % (Auto) 0.2, Neut # (Auto) 8.4 H, Lymph # (Auto) 1.7, [place] # (Auto) 0.2, Eos # (Auto) 0.0, Baso # (Auto) 0.0 01/26/20 05:58: Sodium 139, Potassium 4.6, Chloride 108 H, Carbon Dioxide 26, Anion Gap 9.6, BUN 23 H D, Creatinine 1.20 H, Estimated Creat Clear 48, Estimated GFR 43 L, Est GFR ( Amer) 52 L, Glucose 236 H D, Calcium 8.8 01/26/20 06:09: POC Glucose 209 H 01/26/20 06:39: Magnesium 2.2 01/26/20 11:12: POC Glucose 269 H I & O for Last 24 hours: Intake & Output 01/24/20 01/25/20 01/26/20 01/27/20 11:59 11:59 11:59 11:59 Intake Total 984 / 984 Output Total 400 / 400 Balance 584 / 584 Weight 187 lb 181 lb 5 oz Microbiology Reports for the Last 24 Hours: Microbiology 01/25/20 16:20 Sputum - Expectorated Sputum Gram Stain - Final - Constitutional no acute distress, morbidly obese - *Routine HEENT Exam Head: Present: normocephalic Eye: Present: PERRL ENT: Present: mucous membranes moist - *Routine Neck Exam Present: supple. Absent: lymphadenopathy - *Routine Respiratory Exam Present: decreased breath sounds, rhonchi - *Routine Cardiovascular Exam Present: RRR - *Routine Abdominal Exam Present: soft, normoactive bowel sounds. Absent: tenderness - *Routine Extremities Exam Present: normal capillary refill. Absent: cyanosis, clubbing, edema - *Routine Skin Exam Present: warm. Absent: rash - *Routine Neurological Exam Present: alert, oriented X3 - Routine Psychiatric Exam Present: normal affect Assessment and Plan (1) COPD exacerbation Status: Acute Category: Medical Code(s): J44.1 - Chronic obstructive pulmonary disease with (acute) exacerbation (2) Diabetes mellitus, insulin dependent (IDDM), controlled Status: Acute Category: Medical (3) CAP (community acquired pneumonia) Status: Acute Qualifiers: Laterality: right Lung location: lower lobe of lung Qualified Code(s): J18.9 - Pneumonia, unspecified organism Category: Medical Code(s): J18.9 - Pneumonia, unspecified organism (4) Hypothyroidism (acquired) Status: Acute Category: Medical Code(s): E03.9 - Hypothyroidism, unspecified (5) Obesity (BMI 30-39.9) Status: Acute Category: Medical Code(s): E66.9 - Obesity, unspecified (6) COVID-19 virus IgG antibody detected Status: Acute Category: Medical Code(s): Z01.84 - Encounter for antibody response examination (7) Aortic valve insufficiency Status: Acute Qualifiers: Cardiac valve disease etiology: nonrheumatic Qualified Code(s): I35.1 - Nonrheumatic aortic (valve) insufficiency Category: Medical Code(s): I35.1 - Nonrheumatic aortic (valve) insufficiency - Assessment and plan all Dx Assessment and Plan for all problems:: rounded with dr edmond all orders per dr edmond
--- NOTE | 2020-01-26 15:02 | PC.NURSE ---
CONTACTED DR LOZOYA OFFICE REGARDING PT C/O CHEST PAIN AND ECG RESULTS, SPOKE WITH BRADLEY HOOK AN REPORTED FINDINGS, BRADLEY STATED HE WOULD MAKE DR ECHEVERRIA AWARE. NO NEW ORDERS AT THIS TIME, AWAITING CALL BACK.
--- NOTE | 2020-01-26 15:09 | PC.NURSE ---
SPOKE WITH BRADLEY RAYMOND APRN, NO NEW ORDERS AT THIS TIME, PT STATES THAT THE PAIN HAS EASED UP. WILL CONTINUE TO MONITOR PT.
--- NOTE | 2020-01-26 16:25 | SW/DCPLANNER ---
Addendum entered by Irene Blair 01/27/20 12:09: Trista from [facility] has been here to evaluate this patient and stated that patient can return once medically stable pending no IV antibiotics (blood cultures). Trista has stated that if patient is ready for discharge over the weekend to contact Trista at [phone]. If patient is not ready till Thursday then I will follow up with Brant Thursday morning. Addendum entered by Irene Blair 01/27/20 11:54: I have updated Brant with Hannah regarding this patient: PT/OT evaluate was good and patient will be here till Thursday due to positive blood cultures. I will follow up with Brant on Thursday morning. Addendum entered by Irene Blair 01/26/20 16:31: Updated patient information has been faxed to Brant at [phone]. Addendum entered by Irene Blair 01/26/20 16:28: I have updated Brant today regarding this patient. Original Note: This patient currently resides at [facility]. I will contact Brant from [facility] regarding this patient once discharge date is known.
--- NOTE | 2020-01-26 19:17 | PC.NURSE ---
report given to selvin
[2020-01-26 22:46] LABS: POC Glucose,Bedside 277 (70-110)
--- NOTE | 2020-01-26 23:25 | PC.NURSE ---
Spoke with Donato [employer] receptionist. Received correct dosing for Vancomycin at this time. Start with loading dose of Vancomycin 1.75 g IV. Then continue with Vancomycin 1.25 g IV Q24H LONNIE, 24 hours after first dose is administered.
[2020-01-27] VITALS (7 sets, daily range): BP systolic 118–188; BP diastolic 62–99; PULSE 78–119; RESP 14–22; TEMP 36.6–37.1; O2SAT 90–96; BMI 37.3
[2020-01-27 00:10] LABS: POC Glucose,Bedside 231 (70-110)
--- NOTE | 2020-01-27 04:18 | PC.NURSE ---
Pt is requesting a form of cough suppressant from MD upon rounding this am. Productive cough noted with clear/yellow phlegm.
--- NOTE | 2020-01-27 04:20 | PC.NURSE ---
Pt is alert and oriented x4. No acute changes noted from previous shift. No c/o pain thus far. Pt has rested well with eyes closed this shift. Tolerated RA well with no c/o SOA. Applied 1.5 lnc for comfort. Pt states I wear 2lnc [place] all the time, I would feel better if I had oxygen on while sleeping . RR noted even and unlabored. Bilateral lungs noted clear t/o upon auscultation. Productive cough noted with clear/ yellow phlegm. Pt has had multiple soft bm this shift. Tolerates diet well. Denies N/V/D. Ambulates well with standby assist to and from bathroom. No edema noted. Refused teds. VSS. Remains safe. Call light within reach. Will continue to monitor.
[2020-01-27 05:39] LABS: POC Glucose,Bedside 195 (70-110)
[2020-01-27 05:53] LABS: Basophils % 0.1 % (0.1-2.0); Eosinophils # 0.1 K/mm3 (0.0-0.4); Eosinophils % 0.3 % (0.1-12.0); Hematocrit 40.7 % (37.0-47.0); Hemoglobin 12.4 g/dL (12.2-16.2); Lymphocytes # 2.6 K/mm3 (0.7-4.5); Lymphocytes % 10.5 % (10-50); Mean Corpuscular HGB Conc 30.4 g/dL (31.8-35.4); Mean Corpuscular Hemoglobin 24.9 pg (27.0-31.2); Mean Corpuscular Volume 82.1 fl (81-99); Mean Platelet Volume 8.6 fl (7.4-10.4); Monocytes # 0.7 K/mm3 (0.1-1.0); Neutrophils # 21.4 K/mm3 (1.8-7.8); Neutrophils % 86.1 % (37.0-80.0); Platelet Count 307 K/mm3 (142-424); Red Blood Count 4.96 M/mm3 (4.20-5.40); Red Cell Distribution Width 16.7 % (11.5-17.5); White Blood Count 24.9 K/mm3 (4.8-10.8)
[2020-01-27 06:01] LABS: Anion Gap 12.3 mEq/L (5-15); Blood Urea Nitrogen 30 mg/dl (7-17); Calcium 8.7 mg/dl (8.4-10.2); Carbon Dioxide 22 mmol/L (22.0-30.0); Chloride 112 mmol/L (98-107); Creatinine Clearance Estimated 53 mL/min (50-200); Estimated Glomerular Filt Rate 48 ml/min (>60); GFR (African American) 58 ML/MIN (>60); Glucose 223 mg/dl (74-100); Potassium 4.3 mmoL/L (3.5-5.1); Sodium 142 mmol/L (136-145)
[2020-01-27 06:25] LABS: MANUAL DIFFERENTIAL MANUAL DIFFERENTIAL (MANUAL DIFF)
--- NOTE | 2020-01-27 08:16 | HMH.PHACONS ---
- Pharmacy Consult Date: 01/27/20 Time: 08:16 Referring provider: DR. ECHEVERRIA Reason for Consult:: VANCOMYCIN DOSING Allergies and ADEs:: Allergies Allergy/AdvReac Type Severity Reaction Status Date / Time codeine Allergy Verified 08/14/19 22:45 Home Medications:: Home Medications Medication Instructions Recorded Confirmed Type Furosemide [Furosemide 20mg Tab*] 20 mg PO DAILY 08/14/19 01/25/20 History Insulin Glargine,Hum.rec.anlog 15 unit SQ HS 08/14/19 01/25/20 History [Lantus Insulin 100units/mL 10mL vial] Levothyroxine Sodium 25 mcg PO DAILY 08/14/19 01/25/20 History [Levothyroxine 25mcg (0.025mg) Tab] Linagliptin [Tradjenta 5mg tablet] 5 mg PO DAILY 08/14/19 01/25/20 History Losartan Potassium [Cozaar 50mg 50 mg PO DAILY 08/14/19 01/25/20 History Tablets] Acetaminophen [Acetaminophen 325mg 650 mg PO Q4H PRN 08/15/19 01/25/20 History tab] Albuterol Sulfate [Ventolin HFA 2 puffs IH Q6HP PRN 08/15/19 01/25/20 History Inhaler] Aspirin [Aspirin 81mg chewable 81 mg PO DAILY 08/15/19 01/25/20 History tab] Cholecalciferol (Vitamin D3) 1,000 unit PO DAILY 08/15/19 01/25/20 History [Vitamin D3 1,000 Unit Tab] Cyanocobalamin (Vitamin B-12) 1,000 mcg PO DAILY 08/15/19 01/25/20 History [Vitamin B-12 1000mcg Tablet] Fluticasone Propionate [Flonase 1 spray NS DAILY 08/15/19 01/25/20 History Allergy Relief NS] Sennosides/Docusate Sodium [Senna 2 each PO DAILYP PRN 01/25/20 01/25/20 History Plus 8.6-50 mg Tablet] dilTIAZem HCL [Diltiazem HCl] 90 mg PO BID 01/25/20 01/25/20 History Height: 1.5 m Weight: 84.056 kg Laboratory Results:: Laboratory Results - last 24 hr 01/26/20 06:09: POC Glucose 209 H 01/26/20 11:12: POC Glucose 269 H 01/26/20 16:52: POC Glucose 231 H 01/26/20 21:27: POC Glucose 277 H 01/27/20 05:12: POC Glucose 195 H 01/27/20 05:35: WBC 24.9 H* D, RBC 4.96, Hgb 12.4, Hct 40.7, MCV 82.1, MCH 24.9 L, MCHC 30.4 L, RDW 16.7, Plt Count 307, MPV 8.6, Neut % (Auto) 86.1 H, Lymph % (Auto) 10.5, [place] % (Auto) 3.0, Eos % (Auto) 0.3, Baso % (Auto) 0.1, Neut # (Auto) 21.4 H, Lymph # (Auto) 2.6, [place] # (Auto) 0.7, Eos # (Auto) 0.1, Baso # (Auto) 0.0 01/27/20 05:35: Sodium 142, Potassium 4.3, Chloride 112 H, Carbon Dioxide 22, Anion Gap 12.3, BUN 30 H D, Creatinine 1.10 H, Estimated Creat Clear 53, Estimated GFR 48 L, Est GFR ( Amer) 58 L, Glucose 223 H, Calcium 8.7 Medical History: Reports:: Atrial Fibrillation, Congestive Heart Failure, Chronic Obstructive Pulmonary Disease (COPD), Coronary Artery Disease, Diabetes Mellitus Type 2, Hyperlipidemia, Hypertension, Myocardial Infarction Denies:: Cancer, Diabetes Mellitus Type 1, MRSA Assessment and Plan (1) COPD exacerbation Status: Acute Category: Medical Code(s): J44.1 - Chronic obstructive pulmonary disease with (acute) exacerbation (2) Diabetes mellitus, insulin dependent (IDDM), controlled Status: Acute Category: Medical (3) CAP (community acquired pneumonia) Status: Acute Qualifiers: Laterality: right Lung location: lower lobe of lung Qualified Code(s): J18.9 - Pneumonia, unspecified organism Category: Medical Code(s): J18.9 - Pneumonia, unspecified organism (4) Hypothyroidism (acquired) Status: Acute Category: Medical Code(s): E03.9 - Hypothyroidism, unspecified (5) Obesity (BMI 30-39.9) Status: Acute Category: Medical Code(s): E66.9 - Obesity, unspecified (6) COVID-19 virus IgG antibody detected Status: Acute Category: Medical Code(s): Z01.84 - Encounter for antibody response examination (7) Aortic valve insufficiency Status: Acute Qualifiers: Cardiac valve disease etiology: nonrheumatic Qualified Code(s): I35.1 - Nonrheumatic aortic (valve) insufficiency Category: Medical Code(s): I35.1 - Nonrheumatic aortic (valve) insufficiency - Assessment and plan all Dx Assessment and Plan for all problems:: Patient: Floor:
[2020-01-27 08:36] LABS: Lymphocytes % 12 % (10-50); Monocytes % 4 % (2-9); Neutrophils % 84 % (42-76); Platelet Estimate Normal; RBC Morphology Normal; Total Cells Counted 100
--- NOTE | 2020-01-27 11:24 | HMH.OTEV ---
OT Inpatient Evaluation Rehab OT IP Evaluation Start: 01/27/20 10:42 Freq: ONCE Status: Complete Protocol: Document 01/27/20 11:12 KEVIN (Rec: 01/27/20 11:24 PANFILOMANNY [id number]) Rehab OT IP Assessment Subjective History 79 year old female present to ED from [place] after having chest pain and SOB for the past week. Records report that nurses stated, You're fine. Patient admitted for COPD exaceration, DM type 2, CAP, hypothyroidism, COVID anti- bodies deteched. PMH: A-fib, CHF, COPD, CAD and DM type 2. Subjective I was just getting some rest. Objective Patient Orientation Person,Place,Name,Birthday Upper Extremity Gross ROM WNL Transfer Training Sit/Stand Transfer,Sit/Stand/ Step Transfer,Sit/Stand/Pivot Transfer Assist Level Independent Chair Transfer Ability Independent Chair Transfer Technique Sit to/from Ambulatory Chair Transfer Assistive Devices Rolling Walker Lower Body Dressing Ability Independent Upper Body Dressing Ability Independent Rehab OT IP prob,goals,plan Problems Date of Evaluation: 01/27/20 Rehab Potential Rehab Potential Innapropriate for Skilled Therapy Equipment Needs Assistive Devices Rolling / Wheeled Walker Discharge Plan OT Discharge Plan Patient presents to be baseline with ADLs and fx'l transfers. Patient transfers and ambulates with RW Mod I safely with no LOB noted. Therapy not indicated at this time. Eval Complexity Eval Charge Codes 47667 - Low Complexity G Codes G -code Required No PHYSICIAN CERTIFICATION: I certify the specified therapy services for Cece Chambers are required, authorized, and reviewed every 30 days.
[2020-01-27 11:28] LABS: POC Glucose,Bedside 307 (70-110)
--- NOTE | 2020-01-27 11:30 | HMH.PTEV ---
Physical Therapy Evaluation Rehab PT IP Evaluation Start: 01/27/20 10:40 Freq: .once Status: Complete Protocol: Document 01/27/20 11:26 PHORLISA (Rec: 01/27/20 11:30 PHORNE [id number]) Subjective/History History History 79 yowf adm to [facility] from personal halfway with [facility]. She reports she is independent with all mobility at the personal halfway. Subjective Subjective Pt with no c/o this am. Rehab PT IP Eval Objective Appearance Patient Behavior Appropriate Patient Orientation Person,Place Difficulty following instructions none Speech Pattern Clear Ambulation Patient Able to Ambulate Yes Ambulation Observation IP General Gait Pattern Observation No Deviations/Normal Ambulation Distance (feet) 100 Ambulation Assistive Device Rolling Walker Ambulation Ability Independent Balance Ability to Arise Able, uses arms to help Sitting Balance Steady, safe Standing Balance Steady, wide stance Dynamic Sitting Balance Ability Good Dynamic Standing Balance Ability Good Transfers Bed Transfer Ability Independent Chair Transfer Ability Independent Sit to Stand Bed Transfer Ability Independent Sit to Stand Chair Transfer Ability Independent ROM All Extremities PT ROM Status WFL MMT All Extremities PT MMT WFL Rehab PT IP prob,goals,plan Problems Date of Evaluation: 01/27/20 Discharge Plan PT Discharge Plan Pt is appropriate to return to personal halfway once medically stable. No inpatient therapy needs at this time. G -code Required No Eval Complexity Eval Charge Codes 08822 - Moderate Complexity PHYSICIAN CERTIFICATION: I certify the specified therapy services for Cece Chambers are required, authorized, and reviewed every 30 days.
--- NOTE | 2020-01-27 13:18 | HMH.ACPN2 ---
Internal Medicine - PN: Subj *Date: 01/27/20 *Time: 08:00 Interval history: pt laying in bed, states she would like to be dc to a [facility] in [place] so she can be close to family. Exam Vital signs and Labs for Last 24 Hours: Temp Pulse Resp BP Pulse Ox 98.8 F 119 H 20 118/99 H 94 L 01/27/20 12:00 01/27/20 12:00 01/27/20 12:00 01/27/20 12:00 01/27/20 12:00 Laboratory Results - last 24 hr 01/26/20 16:52: POC Glucose 231 H 01/26/20 21:27: POC Glucose 277 H 01/27/20 05:12: POC Glucose 195 H 01/27/20 05:35: WBC 24.9 H* D, RBC 4.96, Hgb 12.4, Hct 40.7, MCV 82.1, MCH 24.9 L, MCHC 30.4 L, RDW 16.7, Plt Count 307, MPV 8.6, Neut % (Auto) 86.1 H, Lymph % (Auto) 10.5, [place] % (Auto) 3.0, Eos % (Auto) 0.3, Baso % (Auto) 0.1, Neut # (Auto) 21.4 H, Lymph # (Auto) 2.6, [place] # (Auto) 0.7, Eos # (Auto) 0.1, Baso # (Auto) 0.0, Total Counted 100, Neutrophils % (Manual) 84 H, Lymphocytes % (Manual) 12, Monocytes % (Manual) 4, Platelet Estimate Normal, RBC Morphology Normal 01/27/20 05:35: Sodium 142, Potassium 4.3, Chloride 112 H, Carbon Dioxide 22, Anion Gap 12.3, BUN 30 H D, Creatinine 1.10 H, Estimated Creat Clear 53, Estimated GFR 48 L, Est GFR ( Amer) 58 L, Glucose 223 H, Calcium 8.7 01/27/20 10:32: POC Glucose 307 H* I & O for Last 24 hours: Intake & Output 01/25/20 01/26/20 01/27/20 01/28/20 11:59 11:59 11:59 11:59 Intake Total 984 / 984 1230 / 1230 Output Total 400 / 400 Balance 584 / 584 1230 / 1230 Weight 187 lb 181 lb 5 oz 185 lb 3.013 oz Microbiology Reports for the Last 24 Hours: Microbiology 01/25/20 09:32 Blood Blood Culture - Preliminary 01/25/20 09:32 Blood Blood Culture - Preliminary NO GROWTH AFTER 48 HOURS - Constitutional no acute distress - *Routine HEENT Exam Head: Present: normocephalic Eye: Present: PERRL ENT: Present: mucous membranes moist - *Routine Neck Exam Present: supple. Absent: lymphadenopathy - *Routine Respiratory Exam Present: decreased breath sounds, rhonchi - *Routine Cardiovascular Exam Present: RRR - *Routine Abdominal Exam Present: soft, normoactive bowel sounds. Absent: tenderness - *Routine Extremities Exam Present: normal capillary refill. Absent: cyanosis, clubbing, edema - *Routine Skin Exam Present: warm. Absent: rash - *Routine Neurological Exam Present: alert, oriented X3 - Routine Psychiatric Exam Present: normal affect Assessment and Plan (1) COPD exacerbation Status: Acute Category: Medical Code(s): J44.1 - Chronic obstructive pulmonary disease with (acute) exacerbation (2) Diabetes mellitus, insulin dependent (IDDM), controlled Status: Acute Category: Medical (3) CAP (community acquired pneumonia) Status: Acute Qualifiers: Laterality: right Lung location: lower lobe of lung Qualified Code(s): J18.9 - Pneumonia, unspecified organism Category: Medical Code(s): J18.9 - Pneumonia, unspecified organism (4) Hypothyroidism (acquired) Status: Acute Category: Medical Code(s): E03.9 - Hypothyroidism, unspecified (5) Obesity (BMI 30-39.9) Status: Acute Category: Medical Code(s): E66.9 - Obesity, unspecified (6) COVID-19 virus IgG antibody detected Status: Acute Category: Medical Code(s): Z01.84 - Encounter for antibody response examination (7) Aortic valve insufficiency Status: Acute Qualifiers: Cardiac valve disease etiology: nonrheumatic Qualified Code(s): I35.1 - Nonrheumatic aortic (valve) insufficiency Category: Medical Code(s): I35.1 - Nonrheumatic aortic (valve) insufficiency - Assessment and plan all Dx Assessment and Plan for all problems:: rounded with dr edmond all orders per dr edmond wait for blood cx results
--- NOTE | 2020-01-27 15:42 | PC.NURSE ---
Pt has been pleasant and cooperative this shift. A&O X4. No complaints of pain or SOA. Pt is on room air with sats. >90%. Lungs CTA. Skin is C/D/I. No edema noted. Pt ambulates with a walker and stand-by assistance. Pt sat up in the recliner for several hours this shift. Pt voids clear, yellow urine without issue. No BM this shift. 20 G peripheral IV in the LT wrist is patent and infusing NS @ 100 ML/HR. VSS. Call light within reach. Will continue to monitor.
[2020-01-27 16:10] LABS: POC Glucose,Bedside 217 (70-110)
[2020-01-27 20:43] LABS: POC Glucose,Bedside 199 (70-110)
--- NOTE | 2020-01-27 21:21 | PC.NURSE ---
patient rang out c/o chest pain. 3 nurses responded to room patient found to be soa, pink, warm and slightly diaphoretic. vs 147/102, 130, 83% on r/a ,22. nitro tab given sl and ekg performed. oxygen placed back on and increased, o2 remained 84%, non rebreather placed.
--- NOTE | 2020-01-27 21:27 | ECG_ITS ---
APPROVED REPORT Exam: Resting ECG HR:120 bpm ECG Measurements Heart Rate 120 AXES AL P 66 QRSd 76 QRS 27 QT 296 T 66 QTc 418 Conclusion Atrial fib with PVC Late r wave progression Abnormal ECG Electronically signed by : Jesse Kilgore, 01/28/2020 06:54:58
--- NOTE | 2020-01-27 21:27 | PC.NURSE ---
o2 sats increasing to 90 percent on non rebreather. heart rate remains 130s. patient denying pain, c/o feeling weak. fsbs 189. patient restless
--- NOTE | 2020-01-27 21:31 | PC.NURSE ---
patient calmind down, remains diaphoretic, denies pain, heart rate 122, sats 98% on non rebreather, blood pressure 201/107. patietn has audible wheezing . ekg taken to er for review. cardiac nurse practitioner shows atrial fibrillation
[2020-01-27 21:39] LABS: POC Glucose,Bedside 189 (70-110)
--- NOTE | 2020-01-27 22:29 | PC.NURSE ---
EKG obtained and taken to ER and read by Dr. Jacob. Pt sinus tach. MD Sandra notified of pt condition. BP elevated 200/106. HR 120s. New orders received. Avapro 75 mg 1x now. Wait two hours and if BP is greater than 160/90, give Carvedilol 6.25 mg PO one time. Change lasix 20 mg po daily to lasix 40 mg po daily. notified that pt was also administered nitro 0.4 mg SL @ 2121 per protocol. Avapro administered at 2146. BP 159/114, 90% 2L O2 NC. O2 titrated to 2.5 L. Pt had medium per BSC. She is currently in chair. Pt education given about importance of leaving O2 on. Call light within reach. Will continue to monitor.
[2020-01-28] VITALS (15 sets, daily range): BP systolic 138–182; BP diastolic 45–91; PULSE 70–126; RESP 18–20; TEMP 36.4–36.7; O2SAT 89–98; BMI 37.7
--- NOTE | 2020-01-28 03:14 | PC.NURSE ---
Pt is currently resting in chair. Carvedilol 6.25 mg PO administered due to elevated SBP. HR ranging from 90s to 120s with periods up to 140s but do not sustain. It was noted that pt takes diltiazem 90 mg BID according to list of home medications. Pt has not been restarted back on. Will notify MD or AM nurse, providing that HR does not maintain. Has been up to BSC. States that she feels better and is no longer soa. She is currently asymptomatic. New IV placed in RFA #20. (L) arm noted to be edematous. Elevated on pillow. IV DC. No other concerns at this time. Will continue to monitor.
--- NOTE | 2020-01-28 04:09 | PC.NURSE ---
HR in 120s with periods of 130s-140s. MD notified. Diltiazem 90 mg PO BID ordered and administered.
[2020-01-28 05:29] LABS: POC Glucose,Bedside 198 (70-110)
--- NOTE | 2020-01-28 06:00 | XR_ITS ---
PROCEDURE: XR CHEST PORTABLE Referring Doctor: Marc Talamantes Patient Age:79Y CLINICAL HISTORY: chf and follow pneumonia Patient has covid antibody COMPARISON: CR XR CHEST PORTABLE from 08/22/2019 CR XR CHEST PORTABLE from 08/23/2019 CR XR CHEST PORTABLE from 01/25/2020 FINDINGS: AP portable semi-erect chest is compared to 01/25/2020 CXR and 08/23/2019 There appears to be minimal residual infiltrate at the right infrahilar region right base. Previously there is prominent elevation of the right hemidiaphragm of reflecting associated atelectasis here but this is since improved and there is better expansion at the right lung base. Left chest mild accentuation markings left perihilar region particularly at the left infrahilar region laterally. A question a difficult to exclude subtle early infiltrate particular when compared to compared to 01/24. The pulmonary vascularity is slightly more pronounced bilaterally but no overt CHF but no pleural effusions but no pneumothorax but borderline cardiomegaly. Calcified aortic knob. telemetry monitor leads in place.. Arthritic changes at shoulders noted with superior migration of humeral head relative to glenoid likely reflecting bilateral rotator cuff tear/demise IMPRESSION: . right chest:. Slight improvement right infrahilar region Reexpansion of prior atelectasis the right lung base since 01/25/2020. However I continue to suspect minimal residual infiltrate right infrahilar region and towards right lung base but Left chest: Question subtle additional infiltrate today inferior left perihilar region today versus 01-25-20 CXR. Perhaps slight additional vascular engorgement but since 01/24 but no overt CHF Dictated by: Lio Helton MD 01/28/2020 18:29 Lio Helton MD in [place] 01/28/2020 18:29
[2020-01-28 06:51] LABS: Basophils % 0.1 % (0.1-2.0); Eosinophils # 0.1 K/mm3 (0.0-0.4); Eosinophils % 0.7 % (0.1-12.0); Hemoglobin 11.6 g/dL (12.2-16.2); Lymphocytes # 1.5 K/mm3 (0.7-4.5); Lymphocytes % 7.7 % (10-50); Mean Corpuscular HGB Conc 30.6 g/dL (31.8-35.4); Mean Corpuscular Volume 81.6 fl (81-99); Mean Platelet Volume 7.6 fl (7.4-10.4); Monocytes # 0.4 K/mm3 (0.1-1.0); Monocytes % 2.3 % (1.7-9.3); Neutrophils # 16.8 K/mm3 (1.8-7.8); Neutrophils % 89.2 % (37.0-80.0); Platelet Count 258 K/mm3 (142-424); Red Blood Count 4.66 M/mm3 (4.20-5.40); White Blood Count 18.9 K/mm3 (4.8-10.8)
[2020-01-28 06:55] LABS: MANUAL DIFFERENTIAL MANUAL DIFFERENTIAL (MANUAL DIFF)
[2020-01-28 07:03] LABS: Chloride 111 mmol/L (98-107); Potassium 4.6 mmoL/L (3.5-5.1); Sodium 142 mmol/L (136-145)
[2020-01-28 07:06] LABS: Anion Gap 10.6 mEq/L (5-15); Blood Urea Nitrogen 32 mg/dl (7-17); Carbon Dioxide 25 mmol/L (22.0-30.0); Creatinine Clearance Estimated 54 mL/min (50-200); Estimated Glomerular Filt Rate 48 ml/min (>60); GFR (African American) 58 ML/MIN (>60); Glucose 197 mg/dl (74-100)
[2020-01-28 07:38] LABS: Lymphocytes % 8 % (10-50); Monocytes % 2 % (2-9); Neutrophils % 90 % (42-76); Total Cells Counted 100
[2020-01-28 07:41] LABS: Hypochromasia 1+
[2020-01-28 07:42] LABS: Platelet Estimate Normal
[2020-01-28 11:07] LABS: POC Glucose,Bedside 203 (70-110)
--- NOTE | 2020-01-28 12:25 | HMH.ACPN2 ---
Internal Medicine - PN: Subj *Date: 01/28/20 *Time: 12:27 Interval history: Clinically looks great. She is clear, lucid and up in the chair. She does have some clinic complaints of dyspnea. Did have some fleeting chest pain last night. EKG is reviewed. On the monitor she is been in A. fib at a controlled rate. She is a little tacky this morning. We will modify her regimen accordingly. She got some extra Lasix last night per the on-call physician. Repeat EKG showed A. fib. Her initial troponins on arrival were negative. She does have a history of coronary disease and stent deployment. Blood culture from 01 24 grew out staph epi. We will modify her regimen accordingly Exam Vital signs and Labs for Last 24 Hours: Temp Pulse Resp BP Pulse Ox 98.1 F 114 H 20 161/86 H 96 01/28/20 11:56 01/28/20 11:56 01/28/20 11:56 01/28/20 11:56 01/28/20 11:56 Laboratory Results - last 24 hr 01/27/20 15:59: POC Glucose 217 H 01/27/20 20:29: POC Glucose 199 H 01/27/20 21:30: POC Glucose 189 H 01/28/20 05:22: POC Glucose 198 H 01/28/20 06:37: WBC 18.9 H, RBC 4.66, Hgb 11.6 L, Hct 38.0, MCV 81.6, MCH 25.0 L, MCHC 30.6 L, RDW 17.0, Plt Count 258, MPV 7.6, Neut % (Auto) 89.2 H, Lymph % (Auto) 7.7 L, [place] % (Auto) 2.3, Eos % (Auto) 0.7, Baso % (Auto) 0.1, Neut # (Auto) 16.8 H, Lymph # (Auto) 1.5, [place] # (Auto) 0.4, Eos # (Auto) 0.1, Baso # (Auto) 0.0, Total Counted 100, Neutrophils % (Manual) 90 H, Lymphocytes % (Manual) 8 L, Monocytes % (Manual) 2, Platelet Estimate Normal, Hypochromasia 1+ 01/28/20 06:37: Sodium 142, Potassium 4.6, Chloride 111 H, Carbon Dioxide 25, Anion Gap 10.6, BUN 32 H, Creatinine 1.10 H, Estimated Creat Clear 54, Estimated GFR 48 L, Est GFR ( Amer) 58 L, Glucose 197 H, Calcium 8.0 L 01/28/20 10:54: POC Glucose 203 H I & O for Last 24 hours: Intake & Output 01/25/20 01/26/20 01/27/20 01/28/20 23:59 23:59 23:59 23:59 Intake Total 120 / 220 984 / 984 1590 / 1590 720 / 720 Output Total 400 / 400 200 / 200 Balance -280 / -180 984 / 984 1390 / 1390 720 / 720 Weight 179 lb 1 oz 181 lb 5 oz 185 lb 3.013 oz 187 lb 1.6 oz Microbiology Reports for the Last 24 Hours: Microbiology 01/25/20 09:32 Blood Blood Culture - Preliminary Staphylococcus epidermidis 01/25/20 16:20 Sputum - Expectorated Sputum Gram Stain - Final 01/25/20 16:20 Sputum - Expectorated Sputum Sputum Culture - Preliminary 01/25/20 09:35 Throat Group A Streptococcus Screen (ROXANN) - Final Negative for Group A Streptococcus. 01/25/20 09:32 Blood Blood Culture - Preliminary NO GROWTH AFTER 48 HOURS - Constitutional no acute distress, obese, cooperative - *Routine HEENT Exam Head: Present: normocephalic Eye: Present: EOMI, PERRL ENT: Present: mucous membranes moist - *Routine Neck Exam Present: supple. Absent: JVD, lymphadenopathy - *Routine Respiratory Exam Present: crackles. Absent: accessory muscle use - *Routine Cardiovascular Exam Present: tachycardia, irregular rhythm - *Routine Abdominal Exam Present: soft, normoactive bowel sounds. Absent: tenderness - *Routine Extremities Exam Present: edema. Absent: cyanosis, clubbing, tenderness - *Routine Skin Exam Present: warm. Absent: rash - *Routine Neurological Exam Present: alert, oriented X3 Assessment and Plan (1) COPD exacerbation Status: Acute Category: Medical Code(s): J44.1 - Chronic obstructive pulmonary disease with (acute) exacerbation (2) Diabetes mellitus, insulin dependent (IDDM), controlled Status: Acute Category: Medical (3) CAP (community acquired pneumonia) Status: Acute Qualifiers: Laterality: right Lung location: lower lobe of lung Qualified Code(s): J18.9 - Pneumonia, unspecified organism Category: Medical Code(s): J18.9 - Pneumonia, unspecified organism (4) Hypothyroidism (acquired) Status: Acute
[2020-01-28 13:15] LABS: Troponin I 0.07 ng/ml (0.00-0.034)
[2020-01-28 16:35] LABS: POC Glucose,Bedside 180 (70-110)
--- NOTE | 2020-01-28 16:36 | PC.NURSE ---
Pt has been pleasant and cooperative this shift. A&O X4. No complaints of pain or SOA. Pt is receiving O2 @ 2 LPM via NC with sats. >90%. Lungs CTA. Skin is C/D/I. No edema noted. Pt ambulates with a walker and stand-by assistance. Pt sat up in the recliner for several hours this shift. Pt voids clear, yellow urine without issue. No BM this shift. FSBS results have been 203 and 180, both of which have required insulin coverage per MAR. 20 G peripheral IV in the RT forearm is patent and infusing NS @ 50 ML/HR. VSS. Call light within reach. Will continue to monitor.
[2020-01-28 20:52] LABS: POC Glucose,Bedside 181 (70-110)
[2020-01-29] VITALS (13 sets, daily range): BP systolic 151–182; BP diastolic 65–80; PULSE 65–110; RESP 17–22; TEMP 36.5–36.8; O2SAT 90–96; BMI 38.7
--- NOTE | 2020-01-29 03:32 | PC.NURSE ---
No acute changes noted. Pt has rested well this shift. No c/o soa or CP. VS have remained stable. Pt remains on 2L O2 NC. Lungs are diminished t/o. Scattered Rhonchi and wheezing noted.. Pt has ambulated to BR. Has voided and also had a BM. Medications administered per may. Call light within reach. Will continue to monitor.
[2020-01-29 05:54] LABS: Basophils % 0.1 % (0.1-2.0); Eosinophils # 0.4 K/mm3 (0.0-0.4); Eosinophils % 1.9 % (0.1-12.0); Hematocrit 41.8 % (37.0-47.0); Hemoglobin 12.6 g/dL (12.2-16.2); Lymphocytes # 1.9 K/mm3 (0.7-4.5); Lymphocytes % 10.4 % (10-50); Mean Corpuscular HGB Conc 30.1 g/dL (31.8-35.4); Mean Corpuscular Hemoglobin 25.1 pg (27.0-31.2); Mean Corpuscular Volume 83.3 fl (81-99); Mean Platelet Volume 8.9 fl (7.4-10.4); Monocytes # 0.5 K/mm3 (0.1-1.0); Monocytes % 2.9 % (1.7-9.3); Neutrophils # 15.7 K/mm3 (1.8-7.8); Neutrophils % 84.6 % (37.0-80.0); Platelet Count 294 K/mm3 (142-424); Red Blood Count 5.02 M/mm3 (4.20-5.40); White Blood Count 18.5 K/mm3 (4.8-10.8)
--- NOTE | 2020-01-29 06:00 | XR_ITS ---
PROCEDURE: XR CHEST PORTABLE CLINICAL HISTORY: chf and follow pneumonia COMPARISON: CR XR CHEST PORTABLE from 08/23/2019 CR XR CHEST PORTABLE from 01/25/2020 CR XR CHEST PORTABLE from 01/28/2020 FINDINGS: This is somewhat of a lordotic projection. There continues be progressive improvement in the ill-defined infiltrates right lung base. The right upper lung field is clear and the visualized portion of the left lung field is clear. The large cardiac silhouette obscures adequate visualization of the left lung base. There is no significant pulmonary congestion. Monitor lines are seen overlying the chest. IMPRESSION: Difficult to evaluate subtle changes in this patient due to her large size but there appears to be slight and progressive improvement in the ill-defined infiltrates at the right lung base. Dictated by: Dr. Bertin Arreaga MD 01/29/2020 09:11 Dr. Bertin Arreaga MD in [place] 01/29/2020 09:11
[2020-01-29 06:02] LABS: MANUAL DIFFERENTIAL MANUAL DIFFERENTIAL (MANUAL DIFF)
[2020-01-29 06:08] LABS: Anion Gap 11.2 mEq/L (5-15); Blood Urea Nitrogen 37 mg/dl (7-17); Calcium 8.4 mg/dl (8.4-10.2); Carbon Dioxide 26 mmol/L (22.0-30.0); Chloride 110 mmol/L (98-107); Creatinine Clearance Estimated 61 mL/min (50-200); Estimated Glomerular Filt Rate 53 ml/min (>60); GFR (African American) 64 ML/MIN (>60); Glucose 230 mg/dl (74-100); Potassium 4.2 mmoL/L (3.5-5.1); Sodium 143 mmol/L (136-145)
[2020-01-29 06:16] LABS: Vancomycin,Trough 11.3 ug/mL (5.0-10.0)
[2020-01-29 06:22] LABS: Anisocytosis 1+; Hypochromasia 1+; Lymphocytes % 7 % (10-50); Neutrophils % 88 % (42-76); Platelet Estimate Normal; Total Cells Counted 100
[2020-01-29 11:28] LABS: POC Glucose,Bedside 208 (70-110)
[2020-01-29 11:28] LABS: POC Glucose,Bedside 335 (70-110)
--- NOTE | 2020-01-29 11:36 | P.PN_ITS ---
Internal Medicine - PN: Subj *Date: 01/29/20 *Time: 11:36 Exam Vital signs and Labs for Last 24 Hours: Temp Pulse Resp BP Pulse Ox 98.2 F 85 22 151/80 H 95 01/29/20 07:39 01/29/20 10:00 01/29/20 08:15 01/29/20 07:39 01/29/20 10:00 Laboratory Results - last 24 hr 01/28/20 12:45: Troponin I 0.07 H 01/28/20 16:25: POC Glucose 180 H 01/28/20 20:40: POC Glucose 181 H 01/29/20 05:21: POC Glucose 208 H 01/29/20 05:30: WBC 18.5 H, RBC 5.02, Hgb 12.6, Hct 41.8, MCV 83.3, MCH 25.1 L, MCHC 30.1 L, RDW 17.0, Plt Count 294, MPV 8.9, Neut % (Auto) 84.6 H, Lymph % (Auto) 10.4, [place] % (Auto) 2.9, Eos % (Auto) 1.9, Baso % (Auto) 0.1, Neut # (Auto) 15.7 H, Lymph # (Auto) 1.9, [place] # (Auto) 0.5, Eos # (Auto) 0.4, Baso # (Auto) 0.0, Total Counted 100, Neutrophils % (Manual) 88 H, Band Neutrophils % 5.0, Lymphocytes % (Manual) 7 L, Platelet Estimate Normal, Hypochromasia 1+, Anisocytosis 1+ 01/29/20 05:30: Sodium 143, Potassium 4.2, Chloride 110 H, Carbon Dioxide 26, Anion Gap 11.2, BUN 37 H, Creatinine 1.00, Estimated Creat Clear 61, Estimated GFR 53 L, Est GFR ( Amer) 64, Glucose 230 H, Calcium 8.4 01/29/20 05:30: Vancomycin Trough 11.3 H 01/29/20 10:57: POC Glucose 335 H* I & O for Last 24 hours: Intake & Output 01/26/20 01/27/20 01/28/20 01/29/20 23:59 23:59 23:59 23:59 Intake Total 984 / 984 1590 / 1590 3241 / 3341 620 / 620 Output Total 200 / 200 Balance 984 / 984 1390 / 1390 3241 / 3341 620 / 620 Weight 82.242 kg 84 kg 84.867 kg 87.09 kg Microbiology Reports for the Last 24 Hours: Microbiology 01/25/20 16:20 Sputum - Expectorated Sputum Gram Stain - Final 01/25/20 16:20 Sputum - Expectorated Sputum Sputum Culture - Preliminary 01/25/20 09:32 Blood Blood Culture - Preliminary Staphylococcus epidermidis Assessment and Plan (1) COPD exacerbation Status: Acute Category: Medical Code(s): J44.1 - Chronic obstructive pulmonary disease with (acute) exacerbation (2) Diabetes mellitus, insulin dependent (IDDM), controlled Status: Acute Category: Medical (3) CAP (community acquired pneumonia) Status: Acute Qualifiers: Laterality: right Lung location: lower lobe of lung Qualified Code(s): J18.9 - Pneumonia, unspecified organism Category: Medical Code(s): J18.9 - Pneumonia, unspecified organism (4) Hypothyroidism (acquired) Status: Acute Category: Medical Code(s): E03.9 - Hypothyroidism, unspecified (5) Obesity (BMI 30-39.9) Status: Acute Category: Medical Code(s): E66.9 - Obesity, unspecified (6) COVID-19 virus IgG antibody detected Status: Acute Category: Medical Code(s): Z01.84 - Encounter for antibody response examination (7) Aortic valve insufficiency Status: Acute Qualifiers: Cardiac valve disease etiology: nonrheumatic Qualified Code(s): I35.1 - Nonrheumatic aortic (valve) insufficiency Category: Medical Code(s): I35.1 - Nonrheumatic aortic (valve) insufficiency (8) Atrial fibrillation Status: Chronic Category: Medical Code(s): I48.91 - Unspecified atrial fibrillation The patient's infection will respond to the chosen ABx?: Yes Is the patient receiving the right drug, dose, and route?: Yes Could a more targeted ABx be ordered?: No (WBC 18.5/PATIENT AFEBRILE/CXR SHOWS IMPROVEMENT.)
--- NOTE | 2020-01-29 14:19 | HMH.ACPN2 ---
Internal Medicine - PN: Subj *Date: 01/29/20 *Time: 14:21 Interval history: And had an uneventful night and clinically looks much improved. She did have an episode of chest pain on Thursday. She had a troponin of 0.07. As the one episode she has had no further episodes of chest discomfort. On the monitor she is in A. fib. She had been tacky on Thursday, rate control was better with an uptitrated dose of Cardizem. Films are showing slight improvement in the infiltrative processes. Pains on azithromycin and Rocephin. Exam Vital signs and Labs for Last 24 Hours: Temp Pulse Resp BP Pulse Ox 98.1 F 84 22 168/71 H 95 01/29/20 12:00 01/29/20 12:00 01/29/20 12:00 01/29/20 12:00 01/29/20 12:00 Laboratory Results - last 24 hr 01/28/20 16:25: POC Glucose 180 H 01/28/20 20:40: POC Glucose 181 H 01/29/20 05:21: POC Glucose 208 H 01/29/20 05:30: WBC 18.5 H, RBC 5.02, Hgb 12.6, Hct 41.8, MCV 83.3, MCH 25.1 L, MCHC 30.1 L, RDW 17.0, Plt Count 294, MPV 8.9, Neut % (Auto) 84.6 H, Lymph % (Auto) 10.4, [place] % (Auto) 2.9, Eos % (Auto) 1.9, Baso % (Auto) 0.1, Neut # (Auto) 15.7 H, Lymph # (Auto) 1.9, [place] # (Auto) 0.5, Eos # (Auto) 0.4, Baso # (Auto) 0.0, Total Counted 100, Neutrophils % (Manual) 88 H, Band Neutrophils % 5.0, Lymphocytes % (Manual) 7 L, Platelet Estimate Normal, Hypochromasia 1+, Anisocytosis 1+ 01/29/20 05:30: Sodium 143, Potassium 4.2, Chloride 110 H, Carbon Dioxide 26, Anion Gap 11.2, BUN 37 H, Creatinine 1.00, Estimated Creat Clear 61, Estimated GFR 53 L, Est GFR ( Amer) 64, Glucose 230 H, Calcium 8.4 01/29/20 05:30: Vancomycin Trough 11.3 H 01/29/20 10:57: POC Glucose 335 H* I & O for Last 24 hours: Intake & Output 01/26/20 01/27/20 01/28/20 01/29/20 23:59 23:59 23:59 23:59 Intake Total 984 / 984 1590 / 1590 3241 / 3341 620 / 620 Output Total 200 / 200 Balance 984 / 984 1390 / 1390 3241 / 3341 620 / 620 Weight 181 lb 5 oz 185 lb 3.013 oz 187 lb 1.6 oz 192 lb Microbiology Reports for the Last 24 Hours: Microbiology 01/25/20 16:20 Sputum - Expectorated Sputum Gram Stain - Final 01/25/20 16:20 Sputum - Expectorated Sputum Sputum Culture - Preliminary - Constitutional no acute distress, chronically ill appearing - *Routine HEENT Exam Head: Present: normocephalic Eye: Present: EOMI, PERRL ENT: Present: mucous membranes moist - *Routine Neck Exam Present: supple. Absent: lymphadenopathy - *Routine Respiratory Exam Present: rhonchi, crackles. Absent: accessory muscle use, wheezes - *Routine Cardiovascular Exam Present: murmur, irregular rhythm - *Routine Abdominal Exam Present: soft, normoactive bowel sounds. Absent: tenderness - *Routine Extremities Exam Present: edema. Absent: cyanosis, clubbing - *Routine Skin Exam Present: warm. Absent: rash - *Routine Neurological Exam Present: alert, oriented X3 Assessment and Plan (1) COPD exacerbation Status: Acute Category: Medical Code(s): J44.1 - Chronic obstructive pulmonary disease with (acute) exacerbation (2) Diabetes mellitus, insulin dependent (IDDM), controlled Status: Acute Category: Medical (3) CAP (community acquired pneumonia) Status: Acute Qualifiers: Laterality: right Lung location: lower lobe of lung Qualified Code(s): J18.9 - Pneumonia, unspecified organism Category: Medical Code(s): J18.9 - Pneumonia, unspecified organism (4) Hypothyroidism (acquired) Status: Acute Category: Medical Code(s): E03.9 - Hypothyroidism, unspecified (5) Obesity (BMI 30-39.9) Status: Acute Category: Medical Code(s): E66.9 - Obesity, unspecified (6) COVID-19 virus IgG antibody detected Status: Acute Category: Medical Code(s): Z01.84 - Encounter for antibody response examination (7) Aortic valve insufficiency Status: Acute Qualifiers: Cardiac valve disease etiology: nonrheumatic Qualified Code(s): I35.1 - Nonrheumatic aortic (valve) insu
--- NOTE | 2020-01-29 18:18 | PC.NURSE ---
Pt has been pleasant and cooperative this shift. A&O X4. No complaints of pain or SOA. Pt has been on room air with sats. >90%. Lung sounds are diminished and scattered wheezing is noted. Skin is C/D/I. No edema noted. Pt ambulates independently to/from the bathroom and voids clear, yellow urine without issue. No BM this shift. Pt sat up in the recliner for the majority of the shift. Appetite/liquid intake has been excellent and pt eats 80-100% of all meals. FSBS results have been 335 and 200, both of which have required insulin coverage per MAR. 20 G peripheral IV in the RT forearm is patent SL. IVF DC'd this shift per Dr. Talamantes. VSS. Call light within reach. Will continue to monitor.
[2020-01-29 22:00] LABS: POC Glucose,Bedside 233 (70-110)
[2020-01-30] VITALS (11 sets, daily range): BP systolic 130–180; BP diastolic 60–98; PULSE 69–112; RESP 17–20; TEMP 36.3–37; O2SAT 85–97; BMI 38.7
[2020-01-30 03:46] LABS: POC Glucose,Bedside 200 (70-110)
--- NOTE | 2020-01-30 03:51 | PC.NURSE ---
Pt has slept well this shift. No complaints of CP or soa. O2 sats remained in 90s on RA until this AM. Pt was noted to have desat to 85%. Pt was placed back on 2L NC. Other VSS. Lungs are diminished t/o. BS active. Pt stated she had a BM. Pt has ambulated with assist x1 to BR and tolerated well. Medications administered per mar. Call light within reach. Will continue to monitor.
[2020-01-30 06:37] LABS: Basophils % 0.1 % (0.1-2.0); Chloride 107 mmol/L (98-107); Eosinophils # 0.1 K/mm3 (0.0-0.4); Eosinophils % 0.6 % (0.1-12.0); Hematocrit 38.6 % (37.0-47.0); Hemoglobin 12.2 g/dL (12.2-16.2); Lymphocytes # 1.5 K/mm3 (0.7-4.5); Lymphocytes % 11.4 % (10-50); Mean Corpuscular HGB Conc 31.6 g/dL (31.8-35.4); Mean Corpuscular Hemoglobin 25.1 pg (27.0-31.2); Mean Corpuscular Volume 79.4 fl (81-99); Mean Platelet Volume 9.8 fl (7.4-10.4); Monocytes # 0.4 K/mm3 (0.1-1.0); Monocytes % 3.2 % (1.7-9.3); Neutrophils # 11.3 K/mm3 (1.8-7.8); Neutrophils % 84.7 % (37.0-80.0); Platelet Count 266 K/mm3 (142-424); Red Blood Count 4.86 M/mm3 (4.20-5.40); Red Cell Distribution Width 16.8 % (11.5-17.5); Sodium 140 mmol/L (136-145); White Blood Count 13.4 K/mm3 (4.8-10.8)
[2020-01-30 06:38] LABS: Potassium 3.9 mmoL/L (3.5-5.1)
[2020-01-30 06:40] LABS: Alanine Aminotransferase 22 U/L (12-78); Anion Gap 5.9 mEq/L (5-15); Aspartate Amino Transferase 34 U/L (14-36); Bilirubin,Total 0.3 mg/dl (0.2-1.3); Blood Urea Nitrogen 39 mg/dl (7-17); Carbon Dioxide 31 mmol/L (22.0-30.0); Creatinine Clearance Estimated 55 mL/min (50-200); Estimated Glomerular Filt Rate 48 ml/min (>60); GFR (African American) 58 ML/MIN (>60)
[2020-01-30 06:41] LABS: Albumin Level 2.8 g/dl (3.5-5.0); Alkaline Phosphatase 71 U/L (38-126); Calcium 8.3 mg/dl (8.4-10.2); Globulin 2.8 g/dL (1.3-3.2); Glucose 195 mg/dl (74-100); Total Protein,Serum 5.6 g/dl (6.3-8.2)
--- NOTE | 2020-01-30 06:58 | CA_ITS ---
APPROVED REPORT EXAM: Limited 2D Echocardiogram [employer] Chief: Arminda Hager CRT Ht: 4 ft 11 in Wt: 192lbs BSA: 1.81 BP: 135/78 mmHg Indications: REPEAT FOR MITRAL VALUE DOPPLERS TO ASSESS MITRAL STENOSIS TDS-PT IN A-FIB,BEST EXAM POSSIBLE Mitral Valve MV Mean Gr. 7.40 (<2mmHg) Conclusion 1. Limited mitral valve Doppler obtained. To assess the severity of the mitral stenosis 2. The mitral inflow velocity increased to 2 m/s, the mean gradient across valve is between 6 to 7 mmHg, the mitral valve area is 2.4 cm??? by pressure half-time this represents mild mitral stenosis, there is mild mitral regurgitation. Electronically signed by : Boston Moss, 01/31/2020 06:24:45
[2020-01-30 07:39] LABS: Troponin I 0.04 ng/ml (0.00-0.034)
[2020-01-30 08:00] LABS: POC Glucose,Bedside 187 (70-110)
--- NOTE | 2020-01-30 08:44 | HMH.CNCARD ---
History of Present Illness Consult date: 01/30/20 Requesting physician: Marc Talamantes Consult reason: chest pain Chief complaint: chest pain Additional Medical History:: 1. IDDM 2. Reported history of CAD with patient claiming to have had 2 heart attacks and 2 stents placed on 2 separate occasions. A. Elevated troponin of 0.09 during hospitalization for pneumonia, 01/2020. Conservative management at patient request. 3. HTN 4. A. fib with RVR, 07/2019, in setting of COVID-19, pneumonia A. Xarelto therapy recommended, 08/2019 5. COPD 6. Hypothyroidism, on replacement therapy 7. Arthritis 8. Chronic kidney disease, stage III A. Creatinine 1.9, GFR 31, creatinine clearance 38, 08/15/2019 9. COVID-19 infection, 08/2019 History of present illness: this pt of a local correction -rought in by ambulance from [facility]. Chief complaint is reported to be cough. Nurse reports patient also complains of chest pain and shortness of breath. EMS reports that patient told him she has been sick all week, but that staff told her you will be all right . Patient reported to nursing staff here that she is already had Covid . The patient tells me that she has been sick for 1 week with a cough, rhinorrhea, sore throat. She thinks she has had a fever but it has not been documented at [place]. She has a frontal headache. She had diarrhea a couple of days ago, resolved. She has had some vomiting. pt was admitted with ivf and abx The above per Dr. Gandhi Cardiology was consulted due to the patient's complaint of left-sided chest pain during her hospitalization. Admission EKG showed sinus rhythm with controlled ventricular response. EKG during the time of chest pain showed atrial fibrillation with RVR of 120 bpm with no acute ST segment changes but elevated troponin was noted. Patient does have a history of coronary artery disease and prior coronary stenting in the remote past. [facility] History Medical History: Reports:: Atrial Fibrillation, Congestive Heart Failure, Chronic Obstructive Pulmonary Disease (COPD), Coronary Artery Disease, Diabetes Mellitus Type 2, Hyperlipidemia, Hypertension, Myocardial Infarction Denies:: Cancer, Diabetes Mellitus Type 1, MRSA *Have you ever received a pneumonia vaccine?: Yes *Have you received a flu vaccine this season?: Yes Other Medical History: Reports: Arthritis, Hypothyroidism Other Surgeries: Yes: Cardiac Catheterization, Coronary Stent Amputation: No - *Social History Last grade of school completed: 7th or 8th Alcohol Intake: never *Occupational Status:: disabled Housing: assisted living facility Household Members: other *Travel in the last 8 weeks: None Family Hx:: Diabetes, Heart Attack Meds Home Medications Medication Instructions Recorded Confirmed Type Furosemide [Furosemide 20mg Tab*] 20 mg PO DAILY 08/14/19 01/25/20 History Insulin Glargine,Hum.rec.anlog 15 unit SQ HS 08/14/19 01/25/20 History [Lantus Insulin 100units/mL 10mL vial] Levothyroxine Sodium 25 mcg PO DAILY 08/14/19 01/25/20 History [Levothyroxine 25mcg (0.025mg) Tab] Linagliptin [Tradjenta 5mg tablet] 5 mg PO DAILY 08/14/19 01/25/20 History Losartan Potassium [Cozaar 50mg 50 mg PO DAILY 08/14/19 01/25/20 History Tablets] Acetaminophen [Acetaminophen 325mg 650 mg PO Q4H PRN 08/15/19 01/25/20 History tab] Albuterol Sulfate [Ventolin HFA 2 puffs IH Q6HP PRN 08/15/19 01/25/20 History Inhaler] Aspirin [Aspirin 81mg chewable 81 mg PO DAILY 08/15/19 01/25/20 History tab] Cholecalciferol (Vitamin D3) 1,000 unit PO DAILY 08/15/19 01/25/20 History [Vitamin D3 1,000 Unit Tab] Cyanocobalamin (Vitamin B-12) 1,000 mcg PO DAILY 08/15/19 01/25/20 History [Vitamin B-12 1000mcg Tablet] Fluticasone Propionate [Flonase 1 spray NS DAILY 08/15/19 01/25/20 History Allergy Relief NS] Sennosides/Docusate Sodium [Senna 2 each PO DAILYP PRN 01/25/20 01/25/20 History Plus 8.6-5
--- NOTE | 2020-01-30 09:30 | CT_ITS ---
PROCEDURE: CT ANGIO CHEST CLINCIAL INDICATION: NSTEMI type 2, Tachycardia Shortness of breath and tachycardia COMPARISON: No exams were available for comparison TECHNIQUE: IV Contrast: 70ML Isovue 370 Axial images obtained with sagittal and coronal reformats. All CT scans at the facility use one or more dose reduction, viz: automated exposure control, ma/kV adjustment per patient size (including targeted exams where dose is matched to indication, i.e. head), or iterative reconstruction technique. FINDINGS: HEART AND MEDIASTINAL STRUCTURES: No evidence of aortic aneurysm or dissection. No evidence of pulmonary embolus. Moderate atheromatous calcification involves the aorta and great vessels. No mediastinal or hilar mass or adenopathy coronary artery calcifications and/or stents noted. LUNGS AND PLEURAL SPACES: Atelectatic changes are present in the right middle lobe. There is consolidation in the right lower lobe with small right-sided pleural effusion. Left lower lobe atelectatic changes are present with a trace left-sided effusion. 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 It is difficult to determine the degree of stenosis secondary to the dense calcific plaque at this area. ADDITIONAL FINDINGS: No other significant abnormalities. IMPRESSION: 1. No evidence of pulmonary embolus, aortic aneurysm, or aortic dissection. 2. Small right effusion with right basilar consolidation and/or volume loss. Trace to small left effusion also with mild left basilar consolidation and/or volume loss. Dictated by: Yoel Tay MD 01/30/2020 15:41 Yoel Tay MD in [place] 01/30/2020 15:41
[2020-01-30 12:08] LABS: POC Glucose,Bedside 258 (70-110)
--- NOTE | 2020-01-30 15:50 | PC.NURSE ---
PT HAS BEEN UP TO CHAIR FOR DURATION OF SHIFT, 2LNC FOR O2 SUPPORT, PT HAS NOT C/O PAIN THIS SHIFT, HAS TOLERATED DIET WELL, LUNG SOUNDS ARE DIMINISHED BILATERALLY, NO SKIN ISSUES NOTED, ABD IS SOFT ROUND AND NON-TENDER, NO NEEDS AT THIS TIME, WILL CONTINUE TO MONITOR.
--- NOTE | 2020-01-30 16:21 | HMH.DCSUM ---
General - General Admission date:: 01/25/20 Discharge date: 01/30/20 HPI HPI: this pt of a local correction -rought in by ambulance from [facility]. Chief complaint is reported to be cough. Nurse reports patient also complains of chest pain and shortness of breath. EMS reports that patient told him she has been sick all week, but that staff told her you will be all right . Patient reported to nursing staff here that she is already had Covid . The patient tells me that she has been sick for 1 week with a cough, rhinorrhea, sore throat. She thinks she has had a fever but it has not been documented at [facility]. She has a frontal headache. She had diarrhea a couple of days ago, resolved. She has had some vomiting. pt was admitted with ivf and abx - Hospital Course Hospital Course: Laboratory Tests 01/25/20 01/25/20 01/25/20 09:15 09:15 09:15 WBC 11.7 H RBC 5.31 Hgb 13.2 Hct 43.6 MCV 82.1 MCH 24.8 L MCHC 30.2 L RDW 15.8 Plt Count 297 MPV 9.1 Neut % (Auto) 61.5 Lymph % (Auto) 27.4 [place] % (Auto) 5.4 Eos % (Auto) 4.7 Baso % (Auto) 1.0 Neut # (Auto) 7.2 Lymph # (Auto) 3.2 [place] # (Auto) 0.6 Eos # (Auto) 0.6 H Baso # (Auto) 0.1 Total Counted Neutrophils % (Manual) Band Neutrophils % Lymphocytes % (Manual) Monocytes % (Manual) Platelet Estimate RBC Morphology Hypochromasia Anisocytosis Sodium 138 Potassium 4.3 Chloride 103 Carbon Dioxide 28 Anion Gap 11.3 BUN 15 Creatinine 1.00 Estimated Creat Clear 59 Estimated GFR 53 L Est GFR ( Amer) 64 Glucose 140 H POC Glucose Lactate Calcium 9.2 Magnesium Total Bilirubin 0.5 AST 37 H ALT 26 Alkaline Phosphatase 164 H Troponin I < 0.01 Total Protein 7.6 Albumin 3.9 Globulin 3.7 H Albumin/Globulin Ratio 1.1 Procalcitonin Vancomycin Trough Influenza Type A Ag Influenza Type B Ag SARS-CoV-2 IgG Ab (Rapid) SARS-CoV-2 IgM Ab (Rapid) Group A Strep Rapid 01/25/20 01/25/2020 09:15 09:15 09:15 WBC RBC Hgb Hct MCV MCH MCHC RDW Plt Count MPV Neut % (Auto) Lymph % (Auto) [place] % (Auto) Eos % (Auto) Baso % (Auto) Neut # (Auto) Lymph # (Auto) [place] # (Auto) Eos # (Auto) Baso # (Auto) Total Counted Neutrophils % (Manual) Band Neutrophils % Lymphocytes % (Manual) Monocytes % (Manual) Platelet Estimate RBC Morphology Hypochromasia Anisocytosis Sodium Potassium Chloride Carbon Dioxide Anion Gap BUN Creatinine Estimated Creat Clear Estimated GFR Est GFR ( Amer) Glucose POC Glucose Lactate 1.4 Calcium Magnesium Total Bilirubin AST ALT Alkaline Phosphatase Troponin I Total Protein Albumin Globulin Albumin/Globulin Ratio Procalcitonin 0.050 Vancomycin Trough Influenza Type A Ag Influenza Type B Ag SARS-CoV-2 IgG Ab (Rapid) Positive A SARS-CoV-2 IgM Ab (Rapid) Negative Group A Strep Rapid 01/25/20 01/25/20 01/25/20 09:35 09:35 12:30 WBC RBC Hgb Hct MCV MCH MCHC RDW Plt Count MPV Neut % (Auto) Lymph % (Auto) [place] % (Auto) Eos % (Auto) Baso % (Auto) Neut # (Auto) Lymph # (Auto) [place] # (Auto) Eos # (Auto) Baso # (Auto) Total Counted Neutrophils % (Manual) Band Neutrophils % Lymphocytes % (Manual) Monocytes % (Manual) Platelet Estimate RBC Morphology Hypochromasia Anisocytosis Sodium Potassium Chloride Carbon Dioxide Anion Gap BUN Creatinine Estimated Creat Clear Estimated GFR Est GFR ( Amer) Glucose POC Glucose Lactate Calcium Magnesium Total Bilirubin AST ALT
--- NOTE | 2020-01-30 17:17 | SW/DCPLANNER ---
Per Trista at [facility], [place] this patient will need a COVID swab prior to returning. Rapid [facility] has been ordered but Trista has stated they can not offer transportation this evening. I will follow up with and Hannah tomorrow morning.
--- NOTE | 2020-01-30 18:24 | PC.NURSE ---
DISCHARGE HAS BEEN POSTPONED UNTIL TOMORROW
[2020-01-30 20:41] LABS: POC Glucose,Bedside 229 (70-110)
[2020-01-30 22:19] LABS: POC Glucose,Bedside 226 (70-110)
[2020-01-31] VITALS (7 sets, daily range): BP systolic 142–163; BP diastolic 62–80; PULSE 72–100; RESP 18; TEMP 36.4–36.8; O2SAT 92–98; BMI 38.6
--- NOTE | 2020-01-31 08:29 | HMH.PNCARD ---
Subjective Date: 01/31/20 Time: 08:29 Principal diagnosis: chest pain Interval history: 79-year-old white female in bedside chair in no acute distress. Initially sleeping upon entering the room. She denies any chest pain, pressure or tightness overnight. Exam Vital signs and Labs for Last 24 Hours: Temp Pulse Resp BP Pulse Ox 98.1 F 91 H 18 142/80 H 97 01/31/20 08:00 01/31/20 08:00 01/31/20 08:00 01/31/20 08:00 01/31/20 08:00 Laboratory Results - last 24 hr 01/30/20 11:08: POC Glucose 258 H 01/30/20 16:40: POC Glucose 229 H 01/30/20 21:34: POC Glucose 226 H I & O for Last 24 hours: Intake & Output 01/28/20 01/29/20 01/30/20 01/31/20 11:59 11:59 11:59 11:59 Intake Total 1200 / 1200 3141 / 3141 2141 / 2141 840 / 840 Output Total 200 / 200 Balance 1000 / 1000 3141 / 3141 2141 / 2141 840 / 840 Weight 187 lb 1.6 oz 192 lb 192 lb 6 oz 191 lb 9.307 oz Microbiology Reports for the Last 24 Hours: Microbiology 01/30/20 18:20 Nasopharyngeal Coronavirus COVID-19 PCR - Final 01/25/20 16:20 Sputum - Expectorated Sputum Gram Stain - Final 01/25/20 16:20 Sputum - Expectorated Sputum Sputum Culture - Final Normal Respiratory Kristin 01/25/20 09:32 Blood Blood Culture - Final NO GROWTH AFTER 5 DAYS - Constitutional no acute distress - *Routine HEENT Exam Head: Present: normocephalic Eye: Present: EOMI, PERRL ENT: Present: mucous membranes moist - *Routine Neck Exam Present: supple. Absent: lymphadenopathy - *Routine Respiratory Exam Present: CTA bilaterally Comments: Slight end expiratory wheezing noted. - *Routine Cardiovascular Exam Present: RRR - *Routine Abdominal Exam Present: soft, normoactive bowel sounds. Absent: tenderness - *Routine Extremities Exam Absent: cyanosis, clubbing, edema - *Routine Skin Exam Present: warm. Absent: rash - *Routine Neurological Exam Present: alert, oriented X3 Progress Note: A&P (1) COPD exacerbation Status: Acute (2) Diabetes mellitus, insulin dependent (IDDM), controlled Status: Acute (3) CAP (community acquired pneumonia) Status: Acute (4) Hypothyroidism (acquired) Status: Acute (5) Obesity (BMI 30-39.9) Status: Acute (6) COVID-19 virus IgG antibody detected Status: Acute (7) Aortic valve insufficiency Status: Acute (8) Atrial fibrillation Status: Chronic (9) CAD (coronary artery disease) Status: Acute (10) Elevated troponin I measurement Status: Acute Assessment and Plan for All Diagnoses:: 1. Chest pain with known coronary artery disease and mild elevated troponin this admission felt related to demand ischemia from COPD exacerbation and possible pulmonary infiltrate. Patient does not wish any further treatment besides medications. Low-dose carvedilol therapy was added for help with blood pressure and antianginal effect. Echocardiogram shows hypertensive changes with ejection fraction of 55% and mild aortic and mitral stenosis. 2. Paroxysmal atrial fibrillation with controlled ventricular response on diltiazem and carvedilol therapy. Elevated CHADS2 score for which patient has been started on Xarelto therapy. If insurance does not cover it then would switch to Coumadin therapy with a goal INR of 2-3. Okay for discharge home from cardiology standpoint Home medication recommendations Diltiazem CD 240 mg daily Carvedilol 3.125 mg twice daily Xarelto 15 mg daily Aspirin 81 mg daily Losartan 50 mg daily Resume Lasix 20 mg daily Recommend BMP in 1 to 2 weeks to follow-up on renal status. Follow-up in our office in 2 weeks.
[2020-01-31 09:09] LABS: POC Glucose,Bedside 218 (70-110)
--- NOTE | 2020-01-31 11:47 | P.PN_ITS ---
Internal Medicine - PN: Subj *Date: 01/31/20 *Time: 11:47 Exam Vital signs and Labs for Last 24 Hours: Temp Pulse Resp BP Pulse Ox 98.1 F 100 H 18 142/80 H 92 L 01/31/20 08:00 01/31/20 10:35 01/31/20 08:00 01/31/20 08:00 01/31/20 10:38 Laboratory Results - last 24 hr 01/30/20 11:08: POC Glucose 258 H 01/30/20 16:40: POC Glucose 229 H 01/30/20 21:34: POC Glucose 226 H 01/31/20 06:09: POC Glucose 218 H I & O for Last 24 hours: Intake & Output 01/28/20 01/29/20 01/30/20 01/31/20 23:59 23:59 23:59 23:59 Intake Total 3241 / 3341 2351 / 2401 770 / 770 480 / 480 Balance 3241 / 3341 2351 / 2401 770 / 770 480 / 480 Weight 84.867 kg 87.09 kg 87.26 kg 86.9 kg Microbiology Reports for the Last 24 Hours: Microbiology 01/30/20 18:20 Nasopharyngeal Coronavirus COVID-19 PCR - Final 01/25/20 16:20 Sputum - Expectorated Sputum Gram Stain - Final 01/25/20 16:20 Sputum - Expectorated Sputum Sputum Culture - Final Normal Respiratory Kristin 01/25/20 09:32 Blood Blood Culture - Final NO GROWTH AFTER 5 DAYS Assessment and Plan (1) COPD exacerbation Status: Acute Category: Medical Code(s): J44.1 - Chronic obstructive pulmonary disease with (acute) exacerbation (2) Diabetes mellitus, insulin dependent (IDDM), controlled Status: Acute Category: Medical (3) CAP (community acquired pneumonia) Status: Acute Qualifiers: Laterality: right Lung location: lower lobe of lung Qualified Code(s): J18.9 - Pneumonia, unspecified organism Category: Medical Code(s): J18.9 - Pneumonia, unspecified organism (4) Hypothyroidism (acquired) Status: Acute Category: Medical Code(s): E03.9 - Hypothyroidism, unspecified (5) Obesity (BMI 30-39.9) Status: Acute Category: Medical Code(s): E66.9 - Obesity, unspecified (6) COVID-19 virus IgG antibody detected Status: Acute Category: Medical Code(s): Z01.84 - Encounter for antibody response examination (7) Aortic valve insufficiency Status: Acute Qualifiers: Cardiac valve disease etiology: nonrheumatic Qualified Code(s): I35.1 - Nonrheumatic aortic (valve) insufficiency Category: Medical Code(s): I35.1 - Nonrheumatic aortic (valve) insufficiency (8) Atrial fibrillation Status: Chronic Category: Medical Code(s): I48.91 - Unspecified atrial fibrillation (9) CAD (coronary artery disease) Status: Acute Category: Medical Code(s): I25.10 - Atherosclerotic heart disease of [place] coronary artery without angina pectoris (10) Elevated troponin I measurement Status: Acute Category: Medical Code(s): R77.8 - Other specified abnormalities of plasma proteins The patient's infection will respond to the chosen ABx?: Yes Is the patient receiving the right drug, dose, and route?: Yes Could a more targeted ABx be ordered?: No
--- NOTE | 2020-01-31 14:06 | SW/DCPLANNER ---
SET UP TRANSPORT BACK TO HER PERSONAL PRISON WITH TERESE...
--- NOTE | 2020-01-31 15:45 | PC.NURSE ---
PT IS SITTING UP IN THE CHAIR. STATED SHE WAS OKAY WITH GOING HOME BUT IS NOT HAPPY WITH THE FACT THAT SHE WAS GOING TO HAVE A NEW ROOM MATE. PT HAS BEEN UP IN THE CHAIR. AMBULATED TO THE BATHROOM WITH WALKER. CARE MANAGEMENT CALLED [facility] BUS TO TRANSPORT PT TO [facility].
== END 2020-01-31 15:41 | disposition home or self-care (01) | DRG 190 ==
LOC: ER 12:53 → 2ND 12:59
PROVIDERS: Family Medicine; Nurse Practitioner Family; Physician Assistant; Admitting Provider Emergency Medicine; Emergency Provider Emergency Medicine; PCP Emergency Medicine; Visit Provider Emergency Medicine
DX: J44.0 Chronic obstructive pulmonary disease with (acute) lower respiratory infection (principal); J18.9 Pneumonia, unspecified organism; I13.0 Hypertensive heart and chronic kidney disease with heart failure and stage 1 through stage 4 chronic kidney disease, or unspecified chronic kidney disease; J44.1 Chronic obstructive pulmonary disease with (acute) exacerbation; Z86.19 Personal history of other infectious and parasitic diseases; I48.0 Paroxysmal atrial fibrillation; I35.1 Nonrheumatic aortic (valve) insufficiency; E03.9 Hypothyroidism, unspecified; E11.22 Type 2 diabetes mellitus with diabetic chronic kidney disease; Z79.4 Long term (current) use of insulin; Z79.82 Long term (current) use of aspirin; Z79.51 Long term (current) use of inhaled steroids; Z79.899 Other long term (current) drug therapy; N18.30 Chronic kidney disease, stage 3 unspecified; I50.9 Heart failure, unspecified; I25.10 Atherosclerotic heart disease of native coronary artery without angina pectoris; Z95.5 Presence of coronary angioplasty implant and graft; I25.2 Old myocardial infarction
CPT/HCPCS: 36415; 71045; 71275; 80048; 80053; 80202; 82962; 83605; 83735; 84145; 84484; 85007; 85025; 86328; 87040; 87070; 87077; 87186; 87205; 87275; 87276; 87430; 93005; 93306; 93308; 94640; 94761; 96365; 96367; 96375; 97162; 97165; 97530; 99284; J0456; J3370; Q9967; U0003

== ENCOUNTER 2020-04-18 17:34 | Inpatient (IN) | payer MEDICARE, OTHER, SELFPAY ==
[2020-04-18] VITALS (18 sets, daily range): BP systolic 119–153; BP diastolic 40–69; PULSE 60–88; RESP 15–18; TEMP 36.6–37.3; O2SAT 96–100; BMI 37.1; BMI 36.5
--- NOTE | 2020-04-18 17:37 | HMH.EDGENADL ---
ED Disposition Clinical Impression: UGI bleed, Blood loss anemia Disposition: Admitted As Inpatient Condition on Discharge: Serious - Critical Care Critical Care Time: No Attestation: On , the high probability of a clinically significant, sudden or life threatening deterioration of the following system(s) required my full and direct attention, intervention and personal management. The time I documented below is in addition to time spent performing reported procedures but includes the following listed in this critical care notation. Medical Decision Making - Medical Records Medical records reviewed: Yes: I reviewed the patient's medical records. MR Comment: Positive COVID-19 PCR August 12August 19/2020. Positive COVID-19 IgG in January. - Cristian Inquiry Pt receiving controlled substance: No Vital Signs: 04/18/20 17:34 04/18/20 19:00 04/18/20 20:00 Temperature 99.2 F Temperature Source Oral Pulse Rate [Right Radial] 81 72 81 Respiratory Rate 18 17 17 Blood Pressure [Right Arm] 125/50 L 119/69 124/59 L Blood Pressure Mean [Right Arm] 75 85 80 Blood Pressure Source [Right Arm] Automatic Cuff Automatic Cuff Automatic Cuff Blood Pressure Position [Right Arm] Sitting Supine Supine 02 Sat by Pulse Oximetry 100 96 98 Oxygen Delivery Method Room Air Room Air Room Air - Lab Data Lab results reviewed: Yes: I reviewed the patient's lab results. Lab Results 04/18/20 19:15: WBC 10.2, RBC 3.05 L, Hgb 6.2 L*, Hct 22.8 L*, MCV 74.8 L, MCH 20.3 L, MCHC 27.2 L, RDW 16.9, Plt Count 383, MPV 7.9, Neut % (Auto) 55.7, Lymph % (Auto) 36.0, [place] % (Auto) 5.6, Eos % (Auto) 1.5, Baso % (Auto) 1.1, Neut # (Auto) 5.7, Lymph # (Auto) 3.7, [place] # (Auto) 0.6, Eos # (Auto) 0.2, Baso # (Auto) 0.1 04/18/20 19:15: Sodium 139, Potassium 4.8, Chloride 106, Carbon Dioxide 30, Anion Gap 7.8, BUN 36 H, Creatinine 1.60 H, Estimated Creat Clear 36, Estimated GFR 31 L, Est GFR ( Amer) 37 L, Glucose 147 H, Calcium 9.4, Total Bilirubin 0.2, AST 18, ALT 9 L, Alkaline Phosphatase 83, Troponin I < 0.01, Total Protein 6.5, Albumin 3.4 L, Globulin 3.1, Albumin/Globulin Ratio 1.1 04/18/20 19:15: NT-Pro-B Natriuret Pep 2820 H 04/18/20 19:45: Stool Occult Blood Positive A 04/18/20 19:45: Crossmatch (AHG) See Detail Result diagrams: 04/18/20 19:15 04/18/20 19:15 Orders (Tests/Meds): ED MEDICATIONS Generic Name Dose Route Start Last Admin Trade Name Freq PRN Reason Stop Dose Admin Pantoprazole Sodium 80 mg/ 100 mls @ 100 mls/hr 04/18/20 19:36 04/18/20 19:54 Sodium Chloride IV 04/18/20 20:35 100 mls/hr ONCE ONE Administration Pantoprazole Sodium 80 mg/ 100 mls @ 10 mls/hr 04/18/20 20:36 04/18/20 19:55 Sodium Chloride IV 04/21/20 20:35 10 mls/hr .Q10H LONNIE Administration Sodium Chloride 250 mls @ 25 mls/hr 04/18/20 19:45 Sod Chlor 0.9% 250ml Bag IV 04/19/20 19:44 .Q10H LONNIE ORDERS Category Date Time Status PRBC [Red Blood Cells] Stat BBK 04/18/20 19:45 Received Type and Screen Stat BBK 04/18/20 19:45 Received XR chest portable Stat Exams 04/18/20 17:46 Taken Covid-19 IgG/IgM ([facility]) Stat Lab 04/18/20 19:15 Received Troponin I Q3H Lab 04/18/20 21:00 Ordered Troponin I Q3H Lab 04/19/20 00:00 Ordered - Radiology Data #1 Image(s): Chest Image Reviewed: Yes I reviewed the patient's radiology image Preliminary Findings: Normal/NAD - ECG Data Tracing #1 EKG interpreted by Venkat Carter MD: Rhythm: Atrial fibrillation with controlled response Rate: 64 [place]: normal Ectopy: none Conduction: normal ST Segment Changes: none T Wave Changes: none Q Waves: none Poor R wave progression Low voltage QRS Prior electrocardiagrams reviewed. No change from prior tracings. General Adult HPI - General Stated complaint: weakness Time Seen by Provider: 04/18/20 17:37 - History of Present Illness HPI narrative: Brought in by ambulance from [facility]. She says that she recei
--- NOTE | 2020-04-18 17:46 | XR_ITS ---
PROCEDURE: XR CHEST PORTABLE CLINICAL HISTORY: soa Shortness of air, smoker COMPARISON: CR XR CHEST PORTABLE from 01/25/2020 CR XR CHEST PORTABLE from 01/28/2020 CR XR CHEST PORTABLE from 01/29/[address] ANGIO CHEST from 01/30/2020 FINDINGS: Mild cardiomegaly without failure. The lungs are clear without infiltrates, suspicious nodules, or pleural effusions. Osteoarthritic changes of the shoulders IMPRESSION: No acute findings. Dictated by: Yoel Tay MD 04/19/2020 05:50 Yoel Tay MD in OV 04/19/2020 05:50
--- NOTE | 2020-04-18 18:03 | ECG_ITS ---
APPROVED REPORT Exam: Resting ECG HR:64 bpm ECG Measurements Heart Rate 64 AXES QRSd 74 QRS 9 QT 422 T 36 QTc 435 Conclusion Atrial fibrillation Low voltage QRS Cannot rule out Anteroseptal infarct, age undetermined Abnormal ECG Electronically signed by : Jesse Kilgore, 04/19/2020 21:16:52
[2020-04-18 19:21] LABS: Basophils # 0.1 K/mm3 (0-0.2); Eosinophils # 0.2 K/mm3 (0.0-0.4); Monocytes # 0.6 K/mm3 (0.1-1.0); Red Blood Count 3.05 M/mm3 (4.20-5.40); Red Cell Distribution Width 16.9 % (11.5-17.5)
[2020-04-18 19:26] LABS: Chloride 106 mmol/L (98-107); Potassium 4.8 mmoL/L (3.5-5.1); Sodium 139 mmol/L (136-145)
[2020-04-18 19:28] LABS: Blood Urea Nitrogen 36 mg/dl (7-17); Creatinine Clearance Estimated 36 mL/min (50-200); Estimated Glomerular Filt Rate 31 ml/min (>60); GFR (African American) 37 ML/MIN (>60)
[2020-04-18 19:29] LABS: Alanine Aminotransferase 9 U/L (12-78); Albumin Level 3.4 g/dl (3.5-5.0); Albumin/Globulin Ratio 1.1 (1.1-1.8); Alkaline Phosphatase 83 U/L (38-126); Anion Gap 7.8 mEq/L (5-15); Aspartate Amino Transferase 18 U/L (14-36); Bilirubin,Total 0.2 mg/dl (0.2-1.3); Calcium 9.4 mg/dl (8.4-10.2); Carbon Dioxide 30 mmol/L (22.0-30.0); Globulin 3.1 g/dL (1.3-3.2); Glucose 147 mg/dl (74-100); Total Protein,Serum 6.5 g/dl (6.3-8.2)
[2020-04-18 19:30] LABS: Basophils % 1.1 % (0.1-2.0); Eosinophils % 1.5 % (0.1-12.0); Lymphocytes # 3.7 K/mm3 (0.7-4.5); Mean Corpuscular HGB Conc 27.2 g/dL (31.8-35.4); Mean Corpuscular Hemoglobin 20.3 pg (27.0-31.2); Mean Corpuscular Volume 74.8 fl (81-99); Mean Platelet Volume 7.9 fl (7.4-10.4); Monocytes % 5.6 % (1.7-9.3); Neutrophils # 5.7 K/mm3 (1.8-7.8); Neutrophils % 55.7 % (37.0-80.0); Platelet Count 383 K/mm3 (142-424); White Blood Count 10.2 K/mm3 (4.8-10.8)
[2020-04-18 19:31] LABS: Hematocrit 22.8 % (37.0-47.0); Hemoglobin 6.2 g/dL (12.2-16.2)
--- NOTE | 2020-04-18 19:36 | PC.NURSE ---
Critical H&H labs reported to
[2020-04-18 19:39] LABS: NT Pro Brain Natriuretic Pep. 2820 pg/mL (0-450)
[2020-04-18 19:54] LABS: Troponin I < 0.01 ng/ml (0.00-0.034)
[2020-04-18 20:01] LABS: Occult Blood,Stool Positive (Negative)
[2020-04-18 20:11] LABS: Adenovirus,PCR Not Detected (NotDetected); Bordetella Pertussis Not Detected (NotDetected); Chlamydophila Pneumoniae, PCR Not Detected (NotDetected); Coronavirus 19, PCR Not Detected (NotDetected); Coronavirus 229E Not Detected (NotDetected); Coronavirus NL63 Not Detected (NotDetected); Coronavirus OC43 Not Detected (NotDetected); Coronovirus HKU1,PCR Not Detected (NotDetected); Human Metapneumovirus Not Detected (NotDetected); Influenza A, PCR Not Detected (NotDetected); Influenza AH1, 2009 Not Detected (NotDetected); Influenza AH1, PCR Not Detected (NotDetected); Influenza AH3,PCR Not Detected (NotDetected); Influenza B, PCR Not Detected (NotDetected); Mycoplasma Pneumoniae, PCR Not Detected (NotDetected); Parainfluenza 1, PCR Not Detected (NotDetected); Parainfluenza 2, PCR Not Detected (NotDetected); Parainfluenza 3, PCR Not Detected (NotDetected); Parainfluenza 4, PCR Not Detected (NotDetected); Respiratory Syncytial Virus Not Detected (NotDetected); Rhinovirus/Enterovirus Not Detected (NotDetected)
[2020-04-18 20:56] LABS: Coronavirus 19 IgG Antibody Positive (Negative); Coronavirus 19 IgM Antibody Negative (Negative)
--- NOTE | 2020-04-18 21:19 | HMH.HP ---
*Admission Date: 04/18/20 *Chief complaint: gi bleed *History of present illness: this elderly pt from [facility]-pt on xarelto for a fib and had acute weakness -she was seen in the ed - in by ambulance from [facility]. She says that she received her second Covid vaccine on April 14, 2020 and ever since then has felt weak and short of breath. No documented fever. Has some nausea and poor appetite. She has previously had COVID-19. Denies cough. Denies vomiting or diarrhea. Denies chest pain or any other pain. She says she is a smoker, but has not smoked in a while because it has been too cold to go outside and smoke. She says normally a cigarette would last her 2 days. pt was found to have anemia and positive gi bleed and was admitted for treatment and transfusion [facility] History I have reviewed the patient's past medical history: Yes Medical History: Reports:: Atrial Fibrillation, Congestive Heart Failure, Chronic Obstructive Pulmonary Disease (COPD), Coronary Artery Disease, Diabetes Mellitus Type 2, Hyperlipidemia, Hypertension, Myocardial Infarction Denies:: Cancer, Diabetes Mellitus Type 1, MRSA *Have you ever received a pneumonia vaccine?: No *Have you received a flu vaccine this season?: No Other Medical History: Reports: Arthritis, Hypothyroidism Other Surgeries: Yes: Cardiac Catheterization, Coronary Stent Amputation: No - *Social History Alcohol Intake: never *Occupational Status:: disabled Housing: assisted living facility Household Members: other *Travel in the last 8 weeks: None Family Hx:: Diabetes, Heart Attack Review of Systems - Review of Systems Review of systems:: pertinent systems reviewed and negative unless documented below - Constitutional Reports weakness, Denies fever(s) - Eyes Denies change in vision - ENT Denies dizziness, Denies sore throat - *Cardiovascular Reports other (has a fib), Denies shortness of breath - *Respiratory Denies cough - *Gastrointestinal Denies abdominal pain - *Genitourinary Denies blood in urine - *Musculoskeletal Denies joint pain - Integumentary/Breasts Denies rash - *Neurologic Reports weakness, Denies localized weakness, Denies frequent falls - Psychiatric Reports anxiety Meds Home Medications Medication Instructions Recorded Confirmed Type Insulin Glargine,Hum.rec.anlog 15 unit SQ HS 08/14/19 04/18/20 History [Lantus Insulin 100units/mL 10mL vial] Levothyroxine Sodium 25 mcg PO DAILY 08/14/19 04/18/20 History [Levothyroxine 25mcg (0.025mg) Tab] Linagliptin [Tradjenta 5mg tablet] 5 mg PO DAILY 08/14/19 04/18/20 History Losartan Potassium [Cozaar 50mg 50 mg PO DAILY 08/14/19 04/18/20 History Tablets] Acetaminophen [Acetaminophen 325mg 650 mg PO Q4H PRN 08/15/19 04/18/20 History tab] Albuterol Sulfate [Ventolin HFA 2 puffs IH Q6HP PRN 08/15/19 04/18/20 History Inhaler] Aspirin [Aspirin 81mg chewable 81 mg PO DAILY 08/15/19 04/18/20 History tab] Cholecalciferol (Vitamin D3) 1,000 unit PO DAILY 08/15/19 04/18/20 History [Vitamin D3 1,000 Unit Tab] Cyanocobalamin (Vitamin B-12) 1,000 mcg PO DAILY 08/15/19 04/18/20 History [Vitamin B-12 1000mcg Tablet] Fluticasone Propionate [Flonase 1 spray NS DAILY 08/15/19 04/18/20 History Allergy Relief NS] Sennosides/Docusate Sodium [Senna 2 each PO DAILYP PRN 01/25/20 04/18/20 History Plus 8.6-50 mg Tablet] Furosemide [Lasix 40mg tablet] 40 mg PO DAILY 04/18/20 04/18/20 History Rivaroxaban [Xarelto 15mg tablet] 15 mg PO HS 04/18/20 04/18/20 History carvediloL [Carvedilol 3.125mg Tab] 3.125 mg PO BID 04/18/20 04/18/20 History dilTIAZem HCL [Cardizem ER 240mg 240 mg PO DAILY 04/18/20 04/18/20 History Capsule] Allergies Allergy/AdvReac Type Severity Reaction Status Date / Time codeine Allergy Verified 08/14/19 22:45 Exam Vital signs and Labs for Last 24 Hours: Temp Pulse Resp BP Pulse Ox 99.2 F 81
[2020-04-18 22:54] LABS: Troponin I < 0.01 ng/ml (0.00-0.034)
--- NOTE | 2020-04-18 23:37 | PC.NURSE ---
PT ARRIVED VIA STRETCHER FROM ED WITH STAFF AT [id number]
[2020-04-19] VITALS (16 sets, daily range): BP systolic 110–144; BP diastolic 36–81; PULSE 63–89; RESP 15–19; TEMP 36.5–36.9; O2SAT 96–100; BMI 36.3
[2020-04-19 07:06] LABS: Basophils # 0.1 K/mm3 (0-0.2); Basophils % 0.9 % (0.1-2.0); Eosinophils # 0.2 K/mm3 (0.0-0.4); Eosinophils % 2.2 % (0.1-12.0); Hematocrit 30.8 % (37.0-47.0); Lymphocytes # 3.5 K/mm3 (0.7-4.5); Lymphocytes % 33.1 % (10-50); Mean Corpuscular HGB Conc 29.9 g/dL (31.8-35.4); Mean Corpuscular Hemoglobin 23.2 pg (27.0-31.2); Mean Corpuscular Volume 77.6 fl (81-99); Mean Platelet Volume 8.2 fl (7.4-10.4); Monocytes # 0.7 K/mm3 (0.1-1.0); Monocytes % 6.8 % (1.7-9.3); Neutrophils # 5.9 K/mm3 (1.8-7.8); Neutrophils % 56.9 % (37.0-80.0); Platelet Count 309 K/mm3 (142-424); Red Blood Count 3.96 M/mm3 (4.20-5.40); Red Cell Distribution Width 16.9 % (11.5-17.5); White Blood Count 10.4 K/mm3 (4.8-10.8)
[2020-04-19 07:14] LABS: Chloride 108 mmol/L (98-107)
[2020-04-19 07:15] LABS: Potassium 3.8 mmoL/L (3.5-5.1); Sodium 139 mmol/L (136-145)
[2020-04-19 07:17] LABS: Blood Urea Nitrogen 41 mg/dl (7-17); Creatinine Clearance Estimated 38 mL/min (50-200); Estimated Glomerular Filt Rate 33 ml/min (>60); GFR (African American) 40 ML/MIN (>60)
[2020-04-19 07:18] LABS: Anion Gap 6.8 mEq/L (5-15); Calcium 8.7 mg/dl (8.4-10.2); Carbon Dioxide 28 mmol/L (22.0-30.0); Glucose 111 mg/dl (74-100); Hemoglobin 9.2 g/dL (12.2-16.2)
--- NOTE | 2020-04-19 07:33 | P.CONPHA_ITS ---
[facility] Pharmacy VTE Monitoring - Patient Demographics Admission date: 04/18/20 Report Date: 04/19/20 Time: 07:33 Allergies/Adverse Reactions: Patient Allergies codeine Allergy (Verified 08/14/19 22:45) Height: 1.5 m Weight: 81.902 kg Patient Problems: Current Active Problems UGI bleed (Acute) Blood loss anemia (Acute) - VTE Risk Labs: VTE Related Lab Results Hgb 9.2 g/dL (12.2-16.2) L D 04/19/20 06:42 Hct 30.8 % (37.0-47.0) L 04/19/20 06:42 Plt Count 309 K/mm3 (142-424) 04/19/20 06:42 BUN 41 mg/dl (7-17) H 04/19/20 06:42 Creatinine 1.50 mg/dl (0.52-1.04) H 04/19/20 06:42 Estimated Creat Clear 38 mL/min (50-200) 04/19/20 06:42 - Prophylaxis VTE Prophylaxis Ordered?: Yes Types of VTE Prophylaxis: TEDS Knee High Location of Applied Device: Bilateral Lower Extremeties
--- NOTE | 2020-04-19 08:51 | HMH.GSCON ---
*Admission Date: 04/18/20 *Reason for consult:: Upper gastrointestinal hemorrhage *History of present illness: This is an 79-year-old female seen in consultation with the service of Dr. Gandhi for evaluation regarding upper gastrointestinal hemorrhage. Please see HPI forwarded from admission H&P below. Forwarded from admission H&P: this elderly pt from [place]-pt on xarelto for a fib and had acute weakness -she was seen in the ed - in by ambulance from [facility]. She says that she received her second Covid vaccine on April 14, 2020 and ever since then has felt weak and short of breath. No documented fever. Has some nausea and poor appetite. She has previously had COVID-19. Denies cough. Denies vomiting or diarrhea. Denies chest pain or any other pain. She says she is a smoker, but has not smoked in a while because it has been too cold to go outside and smoke. She says normally a cigarette would last her 2 days. pt was found to have anemia and positive gi bleed and was admitted for treatment and transfusion Review of Systems - Review of Systems Review of systems:: unable to obtain - *Neurologic Reports weakness, Denies dizziness, Denies localized weakness, Denies frequent falls [facility] History Medical History: Reports:: Atrial Fibrillation, Congestive Heart Failure, Chronic Obstructive Pulmonary Disease (COPD), Coronary Artery Disease, Diabetes Mellitus Type 2, Hyperlipidemia, Hypertension, Myocardial Infarction Denies:: Cancer, Diabetes Mellitus Type 1, MRSA *Have you ever received a pneumonia vaccine?: No *Have you received a flu vaccine this season?: No Other Medical History: Reports: Arthritis, Hypothyroidism Other Surgeries: Yes: Cardiac Catheterization, Coronary Stent Amputation: No - *Social History Alcohol Intake: never *Occupational Status:: disabled Housing: assisted living facility Household Members: other *Travel in the last 8 weeks: None Family Hx:: Diabetes, Heart Attack Meds Home Medications Medication Instructions Recorded Confirmed Type Insulin Glargine,Hum.rec.anlog 15 unit SQ HS 08/14/19 04/18/20 History [Lantus Insulin 100units/mL 10mL vial] Levothyroxine Sodium 25 mcg PO DAILY 08/14/19 04/18/20 History [Levothyroxine 25mcg (0.025mg) Tab] Linagliptin [Tradjenta 5mg tablet] 5 mg PO DAILY 08/14/19 04/18/20 History Losartan Potassium [Cozaar 50mg 50 mg PO DAILY 08/14/19 04/18/20 History Tablets] Acetaminophen [Acetaminophen 325mg 650 mg PO Q4H PRN 08/15/19 04/18/20 History tab] Albuterol Sulfate [Ventolin HFA 2 puffs IH Q6HP PRN 08/15/19 04/18/20 History Inhaler] Aspirin [Aspirin 81mg chewable 81 mg PO DAILY 08/15/19 04/18/20 History tab] Cholecalciferol (Vitamin D3) 1,000 unit PO DAILY 08/15/19 04/18/20 History [Vitamin D3 1,000 Unit Tab] Cyanocobalamin (Vitamin B-12) 1,000 mcg PO DAILY 08/15/19 04/18/20 History [Vitamin B-12 1000mcg Tablet] Fluticasone Propionate [Flonase 1 spray NS DAILY 08/15/19 04/18/20 History Allergy Relief NS] Sennosides/Docusate Sodium [Senna 2 each PO DAILYP PRN 01/25/20 04/18/20 History Plus 8.6-50 mg Tablet] Furosemide [Lasix 40mg tablet] 40 mg PO DAILY 04/18/20 04/18/20 History Rivaroxaban [Xarelto 15mg tablet] 15 mg PO HS 04/18/20 04/18/20 History carvediloL [Carvedilol 3.125mg Tab] 3.125 mg PO BID 04/18/20 04/18/20 History dilTIAZem HCL [Cardizem ER 240mg 240 mg PO DAILY 04/18/20 04/18/20 History Capsule] Allergies Allergy/AdvReac Type Severity Reaction Status Date / Time codeine Allergy Verified 08/14/19 22:45 Exam Vital signs and Labs for Last 24 Hours: Temp Pulse Resp BP Pulse Ox 98.3 F 74 16 117/61 96 04/19/20 07:59 04/19/20 07:59 04/19/20 07:59 04/19/20 07:59 04/19/20 07:59 Laboratory Results - last 24 hr 04/18/20 19:15: WBC 10.2, RBC 3.05 L, Hgb 6.2 L*, Hct 22.8 L*, MCV 74.8 L, MCH 20.3 L, MCHC 27.2 L, RDW 16.9, Plt Count 383, MPV 7.9, Elissa
--- NOTE | 2020-04-19 08:55 | HMH.PHAINT ---
home medication list completed using MAR from Hannah Contreras
--- NOTE | 2020-04-19 09:54 | HMH.CNCARD ---
History of Present Illness Consult date: 04/19/20 Requesting physician: Reggie Gandhi Consult reason: atrial fibrillation Chief complaint: sob History of present illness: This is an 79-year-old female from a local retirement at [place] who has been having shortness of breath and fatigue since receiving her second Covid vaccine on April 14, 2000. She states that she feels very weak and is sometimes unable to walk because of her weakness. She states that she does not feel well. She was brought to the emergency department because of her persistent shortness of breath and fatigue. The patient was found to be anemic upon arrival to the emergency department with a hemoglobin of 6.2 and hematocrit of 22.8. She has received 2 units of packed red blood cells since being admitted to the hospital. The patient has been seen by Dr. Tariq who plans to do a scope on her tomorrow to evaluate her for her positive GI bleed and anemia. The patient does have a history of chronic atrial fibrillation and she takes Xarelto. Her Xarelto has been stopped and she is now on a PPI. [facility] History I have reviewed the patient's past medical history: Yes Medical History: Reports:: Atrial Fibrillation, Congestive Heart Failure, Chronic Obstructive Pulmonary Disease (COPD), Coronary Artery Disease, Diabetes Mellitus Type 2, Hyperlipidemia, Hypertension, Myocardial Infarction Denies:: Cancer, Diabetes Mellitus Type 1, MRSA *Have you ever received a pneumonia vaccine?: Yes *Have you received a flu vaccine this season?: Yes Other Medical History: Reports: Arthritis, Hypothyroidism Other Surgeries: Yes: Cardiac Catheterization, Coronary Stent Amputation: No - *Social History Smoking Status: Never smoker Alcohol Intake: never *Occupational Status:: disabled Housing: assisted living facility Household Members: other *Travel in the last 8 weeks: None Family Hx:: Unable to obtain Meds Home Medications Medication Instructions Recorded Confirmed Type Insulin Glargine,Hum.rec.anlog 15 unit SQ HS 08/14/19 04/18/20 History [Lantus Insulin 100units/mL 10mL vial] Levothyroxine Sodium 25 mcg PO DAILY 08/14/19 04/18/20 History [Levothyroxine 25mcg (0.025mg) Tab] Linagliptin [Tradjenta 5mg tablet] 5 mg PO DAILY 08/14/19 04/18/20 History Losartan Potassium [Cozaar 50mg 50 mg PO DAILY 08/14/19 04/18/20 History Tablets] Acetaminophen [Acetaminophen 325mg 650 mg PO Q4H PRN 08/15/19 04/18/20 History tab] Albuterol Sulfate [Ventolin HFA 2 puffs IH Q6HP PRN 08/15/19 04/18/20 History Inhaler] Aspirin [Aspirin 81mg chewable 81 mg PO DAILY 08/15/19 04/18/20 History tab] Cholecalciferol (Vitamin D3) 1,000 unit PO DAILY 08/15/19 04/18/20 History [Vitamin D3 1,000 Unit Tab] Cyanocobalamin (Vitamin B-12) 1,000 mcg PO DAILY 08/15/19 04/18/20 History [Vitamin B-12 1000mcg Tablet] Fluticasone Propionate [Flonase 1 spray NS DAILY 08/15/19 04/18/20 History Allergy Relief NS] Sennosides/Docusate Sodium [Senna 2 tab PO DAILYP PRN 01/25/20 04/19/20 History Plus 8.6-50 mg Tablet] Furosemide [Lasix 40mg tablet] 40 mg PO DAILY 04/18/20 04/18/20 History Rivaroxaban [Xarelto 15mg tablet] 15 mg PO HS 04/18/20 04/18/20 History carvediloL [Carvedilol 3.125mg Tab] 3.125 mg PO BID 04/18/20 04/18/20 History dilTIAZem HCL [Cardizem ER 240mg 240 mg PO DAILY 04/18/20 04/18/20 History Capsule] Allergies Allergy/AdvReac Type Severity Reaction Status Date / Time codeine Allergy Verified 08/14/19 22:45 Exam Vital signs and Labs for Last 24 Hours: Temp Pulse Resp BP Pulse Ox 98.3 F 74 16 117/61 96 04/19/20 07:59 04/19/20 07:59 04/19/20 07:59 04/19/20 07:59 04/19/20 07:59 Laboratory Results - last 24 hr 04/18/20 19:15: WBC 10.2, RBC 3.05 L, Hgb 6.2 L*, Hct 22.8 L*, MCV 74.8 L, MCH 20.3 L, MCHC 27.2 L, RDW 16.9, Plt Count 383, MPV 7.9, Neut % (Auto) 55.7, Lymph % (Auto) 36.0, [place] % (Auto) 5.6, Eos % (Auto) 1.5, Baso
--- NOTE | 2020-04-19 10:09 | CA_ITS ---
APPROVED REPORT EXAM: Comprehensive 2D, Doppler, and color-flow Echocardiogram Brake Machine Operator: Arminda Hager CRT Ht: 4 ft 11 in Wt: 180lbs BSA: 1.76 BP: 117/61 mmHg Indications: Congestive Heart Failure, COPD, Shortness of Breath, Atrial Fibrillation, Diabetes, CAD, Hyperlipidemia, Hypertension/HDD, stent, 2D Dimensions LVOT 1.73 cm (M/F) 1.5-2.5 M-Mode Dimensions RVDd 2.74 cm (0.9-2.6) LA Diam 4.78 cm (1.9-4.0) LVDd 5.97 cm (3.5-5.7) Ao Diam 3.16 cm (2.0-3.7) LVDs 4.45 cm (3.5-5.7) IVSd 1.06 cm (0.6-1.1) PWd 0.68 cm (0.6-1.1) EF (Teich) 49.40% FS 25.50% EDV (Teich) 177.90 mL ESV (Teich) 90.10 mL LV Diastology E Decel Time 230.00 (160-240 msec) E/A Ratio 2.53 MED E' 8.20 (< 7 cm/sec) MED A' 4.70 cm/s E'/MED E' Ratio 19.84 (>14) LAT E' 6.10 (<10 cm/sec) LAT A' 5.70 cm/s E/LAT E' Ratio 26.67 (>14) Aortic Valve LVOT Max 126.00 (70-110 cm/s) LVOT VTI 23.27 cm AoV Peak [place]. 204.00 (50-130 cm/s) AI PHT 521.00 ms AO Peak GR. 17.00 mmHg AO Mean GR. 8.50 (<5 mmHg) AO VTI 36.91 (18-25 cm) ELROY (VTI) 1.48 (2.5-4.5 cm2) Mitral Valve MV E Max [place]. 163.00 (40-130 cm/s) MV A Velocity 64.00 (40-130 cm/s) E/A Ratio 2.53 MV Decel. Time 230.00 (160-240 ms) MV Mean Gr. 6.80 (<2mmHg) MV PHT 67.00 ms Tricuspid Valve TR P. Velocity 281.00 cm/s RAP Estimate 10.00 mmHg RVSP 41.60 mmHg Left Ventricle Left atrium is moderately enlarged, left ventricle is normal size, mild concentric left ventricular hypertrophy, visually estimated ejection fraction 55% with no regional wall motion abnormality, diastolic parameters are inconclusive. Right Ventricle Right atrium and right ventricle are mildly enlarged with normal contractility. Aortic Valve Aortic valve is thickened and calcified with mild aortic stenosis, there is moderate aortic insufficiency. Mitral Valve Mitral valve leaflets are minimally thickened, there is mild restriction in the leaflet mobility the mitral inflow and pressure half-time is indicative of mild mitral stenosis, there is mild mitral regurgitation. Tricuspid Valve Tricuspid valve is grossly normal, there is mild tricuspid regurgitation, tricuspid regurgitation jet velocity is inadequate for calculation of the right ventricular systolic pressure. Pulmonic Valve Pulmonic valve is poorly visualized. Great Vessels Aortic root is normal size. Pericardium No significant pericardial effusion noted. Conclusion 1. Moderately enlarged left atrium, normal left ventricular size, mild concentric left ventricular hypertrophy, visually estimated ejection fraction 55% with no regional wall motion abnormality, diastolic parameters are inconclusive. 2. Thickened and calcified aortic valve with mild aortic stenosis, there is moderate aortic insufficiency. 3. Mild mitral stenosis with mild mitral regurgitation. 4. No significant pericardial effusion noted. Electronically signed by : Boston Moss, 04/19/2020 15:17:36
--- NOTE | 2020-04-19 10:56 | HMH.ACPN2 ---
Internal Medicine - PN: Tevin *Date: 04/19/20 *Time: 08:00 Interval history: pt states she feels much better today. Exam Vital signs and Labs for Last 24 Hours: Temp Pulse Resp BP Pulse Ox 98.3 F 74 16 117/61 96 04/19/20 07:59 04/19/20 07:59 04/19/20 07:59 04/19/20 07:59 04/19/20 07:59 Laboratory Results - last 24 hr 04/18/20 19:15: WBC 10.2, RBC 3.05 L, Hgb 6.2 L*, Hct 22.8 L*, MCV 74.8 L, MCH 20.3 L, MCHC 27.2 L, RDW 16.9, Plt Count 383, MPV 7.9, Neut % (Auto) 55.7, Lymph % (Auto) 36.0, [place] % (Auto) 5.6, Eos % (Auto) 1.5, Baso % (Auto) 1.1, Neut # (Auto) 5.7, Lymph # (Auto) 3.7, [place] # (Auto) 0.6, Eos # (Auto) 0.2, Baso # (Auto) 0.1 04/18/20 19:15: Sodium 139, Potassium 4.8, Chloride 106, Carbon Dioxide 30, Anion Gap 7.8, BUN 36 H, Creatinine 1.60 H, Estimated Creat Clear 36, Estimated GFR 31 L, Est GFR ( Amer) 37 L, Glucose 147 H, Calcium 9.4, Total Bilirubin 0.2, AST 18, ALT 9 L, Alkaline Phosphatase 83, Troponin I < 0.01, Total Protein 6.5, Albumin 3.4 L, Globulin 3.1, Albumin/Globulin Ratio 1.1 04/18/20 19:15: NT-Pro-B Natriuret Pep 2820 H 04/18/20 19:15: SARS-CoV-2 IgG Ab (Rapid) Positive A, SARS-CoV-2 IgM Ab (Rapid) Negative 04/18/20 19:45: Stool Occult Blood Positive A 04/18/20 19:45: Blood Type A Positive, Antibody Screen Negative, Crossmatch (AHG) See Detail 04/18/20 19:50: Blood Type Confirm A Positive 04/18/20 20:05: Chlamy pneumoniae PCR Not detected, Adenovirus (PCR) Not detected, B. pertussis DNA (PCR) Not detected, Coronavirus OC43 (PCR) Not detected, Coronavirus HKU1 (PCR) Not detected, Coronavirus 229E (PCR) Not detected, SARS-CoV-2 (PCR) Not detected, Coronavirus NL63 (PCR) Not detected, Human Metapneumovir PCR Not detected, Influenza A (H1) PCR Not detected, Influ A (H1N1/09) PCR Not detected, Influenza A (H3) PCR Not detected, Influenza Type A (PCR) Not detected, Influenza Type B (PCR) Not detected, M. pneumoniae (PCR) Not detected, Parainfluenza 1 (PCR) Not detected, Parainfluenza 2 (PCR) Not detected, Parainfluenza 3 (PCR) Not detected, Parainfluenza 4 (PCR) Not detected, RSV (PCR) Not detected, Entero/Rhino (PCR) Not detected 04/18/20 22:19: Troponin I < 0.01 04/19/20 06:42: WBC 10.4, RBC 3.96 L D, Hgb 9.2 L D, Hct 30.8 L, MCV 77.6 L, MCH 23.2 L, MCHC 29.9 L, RDW 16.9, Plt Count 309, MPV 8.2, Neut % (Auto) 56.9, Lymph % (Auto) 33.1, [place] % (Auto) 6.8, Eos % (Auto) 2.2, Baso % (Auto) 0.9, Neut # (Auto) 5.9, Lymph # (Auto) 3.5, [place] # (Auto) 0.7, Eos # (Auto) 0.2, Baso # (Auto) 0.1 04/19/20 06:42: Sodium 139, Potassium 3.8 D, Chloride 108 H, Carbon Dioxide 28, Anion Gap 6.8, BUN 41 H, Creatinine 1.50 H, Estimated Creat Clear 38, Estimated GFR 33 L, Est GFR ( Amer) 40 L, Glucose 111 H D, Calcium 8.7 I & O for Last 24 hours: Intake & Output 04/16/20 04/17/20 04/18/20 04/19/20 11:59 11:59 11:59 11:59 Intake Total 1004 / 1004 Output Total 200 / 200 Balance 804 / 804 Weight 180 lb 9 oz - Constitutional no acute distress, obese - *Routine HEENT Exam Head: Present: normocephalic Eye: Present: PERRL ENT: Present: mucous membranes moist - *Routine Neck Exam Present: supple. Absent: lymphadenopathy - *Routine Respiratory Exam Present: CTA bilaterally - *Routine Cardiovascular Exam Present: RRR - *Routine Abdominal Exam Present: soft, normoactive bowel sounds. Absent: tenderness - *Routine Extremities Exam Present: normal capillary refill. Absent: cyanosis, clubbing, edema - *Routine Skin Exam Present: warm. Absent: rash - *Routine Neurological Exam Present: alert, oriented X3 - Routine Psychiatric Exam Present: normal affect Assessment and Plan (1) Atrial fibrillation Status: Acute Qualifiers: Atrial fibrillation type: unspecified Qualified Code(s): I48.91 - Unspecified atrial fibrillation Category: Medical Code(s): I48.91 - Unspecified atrial fibrillation (2) Blood loss anemia Status: Acute Category: Medical Code(s): D
[2020-04-19 12:35] LABS: POC Glucose,Bedside 144 (70-110)
[2020-04-19 14:17] LABS: Hematocrit 28.5 % (37.0-47.0); Hemoglobin 8.4 g/dL (12.2-16.2)
--- NOTE | 2020-04-19 15:21 | PC.NURSE ---
Dr. Lane call to confirm that Parekh will be doing EGD around 10am 04/20/2020 and patient is to be NPO after midnight
[2020-04-19 17:15] LABS: POC Glucose,Bedside 160 (70-110)
--- NOTE | 2020-04-19 18:23 | PC.NURSE ---
Pt has rested in bed most of the shift. She has been up to the BSC with 1 assist. She is tolerating her liquid diet. She is NPO at midnight for an EGD in the morning. No change since morning assessment.Consent is signed and on the chart. Will continue to monitor.
[2020-04-19 21:22] LABS: POC Glucose,Bedside 135 (70-110)
--- NOTE | 2020-04-19 23:42 | PC.NURSE ---
[address] PT ASLEEP . TRASH EMPTIED
[2020-04-20] VITALS (26 sets, daily range): BP systolic 86–177; BP diastolic 42–95; PULSE 65–116; RESP 16–22; TEMP 36.1–37.1; O2SAT 92–100; BMI 33.8; BMI 33.7
--- NOTE | 2020-04-20 04:18 | PC.NURSE ---
pt AxOx4, has rested well t/o shift, has had one BM this shift, pt denies any abdominal pain, chest pain or SOA, remains on room air, pt had bath this shift in preparation for EGD this AM
[2020-04-20 05:23] LABS: POC Glucose,Bedside 108 (70-110)
--- NOTE | 2020-04-20 06:05 | PC.NURSE ---
[address] PATIENT AWAKE . PATIENT VOICED NO NEEDS AT THIS TIME. TRASH AND LINENS EMPTIED
--- NOTE | 2020-04-20 06:57 | HMH.GSPN ---
Subjective Narrative: She is resting comfortably. Per nursing staff she has been okay through the night . Progress Note: A&P (1) Atrial fibrillation Status: Acute (2) Blood loss anemia Status: Acute (3) UGI bleed Status: Acute Assessment and plan: She has been placed on the schedule for esophagogastroduodenoscopy by Dr. Chandana Parekh later today. (4) Diabetes mellitus, insulin dependent (IDDM), controlled Status: Acute (5) Hypothyroidism (acquired) Status: Acute (6) Obesity (BMI 30-39.9) Status: Acute (7) CAD (coronary artery disease) Status: Acute (8) HTN (hypertension) Status: Chronic Exam Vital signs and Labs for Last 24 Hours: Temp Pulse Resp BP Pulse Ox 97.9 F 84 18 112/64 94 L 04/20/20 04:00 04/20/20 04:00 04/20/20 04:00 04/20/20 04:00 04/20/20 04:00 Laboratory Results - last 24 hr 04/19/20 06:42: WBC 10.4, RBC 3.96 L D, Hgb 9.2 L D, Hct 30.8 L, MCV 77.6 L, MCH 23.2 L, MCHC 29.9 L, RDW 16.9, Plt Count 309, MPV 8.2, Neut % (Auto) 56.9, Lymph % (Auto) 33.1, [place] % (Auto) 6.8, Eos % (Auto) 2.2, Baso % (Auto) 0.9, Neut # (Auto) 5.9, Lymph # (Auto) 3.5, [place] # (Auto) 0.7, Eos # (Auto) 0.2, Baso # (Auto) 0.1 04/19/20 06:42: Sodium 139, Potassium 3.8 D, Chloride 108 H, Carbon Dioxide 28, Anion Gap 6.8, BUN 41 H, Creatinine 1.50 H, Estimated Creat Clear 38, Estimated GFR 33 L, Est GFR ( Amer) 40 L, Glucose 111 H D, Calcium 8.7 04/19/20 12:28: POC Glucose 144 H 04/19/20 14:07: Hgb 8.4 L, Hct 28.5 L 04/19/20 17:05: POC Glucose 160 H 04/19/20 21:10: POC Glucose 135 H 04/20/20 05:16: POC Glucose 108 I & O for Last 24 hours: Intake & Output 04/17/20 04/18/20 04/19/20 04/20/20 11:59 11:59 11:59 11:59 Intake Total 1004 / 1004 1177 / 1177 Output Total 200 / 200 Balance 804 / 804 1177 / 1177 Weight 180 lb 9 oz 168 lb - Constitutional no acute distress - *Routine Respiratory Exam Absent: respiratory distress - *Routine Cardiovascular Exam Present: RRR
--- NOTE | 2020-04-20 07:37 | HMH.PNCARD ---
Subjective Date: 04/20/20 Time: 07:37 Principal diagnosis: GI bleed, A. fib Interval history: 79-year-old white female in bed in no acute distress. States she feels better than on admission but is still pondering proceeding with the EGD. She is just not keen on having a sore throat afterward. She denies any bright red blood per rectum and has had some dark stool since admission. She denies any chest pain, pressure or tightness. Hemoglobin yesterday was 8.4 down from 9.2. CBC today is pending. Exam Vital signs and Labs for Last 24 Hours: Temp Pulse Resp BP Pulse Ox 97.9 F 84 18 112/64 94 L 04/20/20 04:00 04/20/20 04:00 04/20/20 04:00 04/20/20 04:00 04/20/20 04:00 Laboratory Results - last 24 hr 04/19/20 12:28: POC Glucose 144 H 04/19/20 14:07: Hgb 8.4 L, Hct 28.5 L 04/19/20 17:05: POC Glucose 160 H 04/19/20 21:10: POC Glucose 135 H 04/20/20 05:16: POC Glucose 108 I & O for Last 24 hours: Intake & Output 04/17/20 04/18/20 04/19/20 04/20/20 11:59 11:59 11:59 11:59 Intake Total 1004 / 1004 1177 / 1177 Output Total 200 / 200 Balance 804 / 804 1177 / 1177 Weight 180 lb 9 oz 168 lb - Constitutional no acute distress - *Routine HEENT Exam Head: Present: normocephalic Eye: Present: EOMI, PERRL ENT: Present: mucous membranes moist - *Routine Neck Exam Present: supple. Absent: lymphadenopathy - *Routine Respiratory Exam Present: CTA bilaterally - *Routine Cardiovascular Exam Present: irregularly irregular - *Routine Abdominal Exam Present: soft, normoactive bowel sounds. Absent: tenderness - *Routine Extremities Exam Absent: cyanosis, clubbing, edema - *Routine Skin Exam Present: warm. Absent: rash - *Routine Neurological Exam Present: alert, oriented X3 Progress Note: A&P (1) Atrial fibrillation Status: Acute Assessment and plan: Rate controlled on combination of Coreg and diltiazem. Xarelto held due to GI bleed. Will need to consider outpatient referral for watchman device. (2) Blood loss anemia Status: Acute Assessment and plan: Recommend transfusing to keep hemoglobin above 10. (3) UGI bleed Status: Acute Assessment and plan: Going for upper endoscopy today. (4) Diabetes mellitus, insulin dependent (IDDM), controlled Status: Acute (5) Hypothyroidism (acquired) Status: Acute (6) Obesity (BMI 30-39.9) Status: Acute (7) CAD (coronary artery disease) Status: Acute Assessment and plan: Clinically stable. No further planned intervention at this time. Echocardiogram his EF 55% with moderate AI and mild MR. (8) HTN (hypertension) Status: Chronic Assessment and Plan for All Diagnoses:: See above. Anticipate the patient will have upper endoscopy today. Clinically stable but still recommend that she be transfused to hemoglobin greater than 10.
[2020-04-20 07:45] LABS: Basophils # 0.1 K/mm3 (0-0.2); Basophils % 1.2 % (0.1-2.0); Eosinophils # 0.5 K/mm3 (0.0-0.4); Eosinophils % 4.6 % (0.1-12.0); Hematocrit 28.8 % (37.0-47.0); Hemoglobin 8.2 g/dL (12.2-16.2); Lymphocytes # 3.9 K/mm3 (0.7-4.5); Lymphocytes % 36.8 % (10-50); Mean Corpuscular HGB Conc 28.5 g/dL (31.8-35.4); Mean Corpuscular Hemoglobin 22.4 pg (27.0-31.2); Mean Corpuscular Volume 78.8 fl (81-99); Mean Platelet Volume 7.6 fl (7.4-10.4); Monocytes # 0.7 K/mm3 (0.1-1.0); Monocytes % 6.7 % (1.7-9.3); Neutrophils # 5.4 K/mm3 (1.8-7.8); Neutrophils % 50.7 % (37.0-80.0); Platelet Count 276 K/mm3 (142-424); Red Blood Count 3.65 M/mm3 (4.20-5.40); Red Cell Distribution Width 17.5 % (11.5-17.5); White Blood Count 10.6 K/mm3 (4.8-10.8)
[2020-04-20 07:47] LABS: Chloride 110 mmol/L (98-107); Sodium 139 mmol/L (136-145)
[2020-04-20 07:50] LABS: Blood Urea Nitrogen 32 mg/dl (7-17); Creatinine Clearance Estimated 38 mL/min (50-200); Estimated Glomerular Filt Rate 36 ml/min (>60); GFR (African American) 44 ML/MIN (>60)
[2020-04-20 07:51] LABS: Calcium 8.7 mg/dl (8.4-10.2); Carbon Dioxide 30 mmol/L (22.0-30.0); Chol/HDL Ratio 3.7 (1-3.5); Cholesterol 122 mg/dl (140-200); Glucose 113 mg/dl (74-100); HDL Cholesterol 33 mg/dl (40-60); Triglycerides 119 mg/dl (30-150); VLDL Cholesterol 24 mg/dL (0-40)
[2020-04-20 08:02] LABS: Direct LDL Cholesterol 64.95 mg/dL (100-129)
--- NOTE | 2020-04-20 12:15 | P.PCN_ITS ---
[facility] Procedure Note Procedure Note:: Upper Endoscopy Procedure Report: Esophagogastroduodenoscopy with cold biopsies Endoscopost: Chandana Parekh II, MD Referring Physician: Reggie Gandhi MD Date of Procedure: April 20, 2020 Equipment: Olympus GIF 180 standard upper endoscope Sedation: MAC sedation Indications: Mrs. Chambers is an 79-year-old female who presents with symptomatic anemia. Her hemoglobin and hematocrit were 6.2 and 22.5 with an MCV of 74. She has received at least 2 units of PRBCs. She was Hemoccult positive. She reports no abdominal pain. She reports no heartburn, reflux, indigestion, dyspepsia or dysphagia. This is her first upper endoscopy. She reports no hematochezia or melena. She has never had a colonoscopy. Procedure: Prior to the procedure, a history and physical exam was performed, and patient's medications and allergies were reviewed. The risks, benefits and alternatives of the sedation and procedure were discussed with the patient. All questions were answered and informed consent was obtained. The patient was brought to the procedure room. Patient identification and proposed procedure were verified by the physician and the nurse. The patient was placed in a left lateral decubitus position and the scope was passed under direct vision. Throughout the procedure, the patient's blood pressure, pulse, and oxygen saturations were monitored continuously. The upper GI endoscopy was accomplished without difficulty. The patient tolerated the procedure well. Findings: The scope was passed directly into the upper esophagus and advanced to the third portion of the duodenum. The post bulbar duodenum and duodenal bulb were normal with normal mucosa and conniventes. The scope was withdrawn through a normal duodenal bulb and pylorus into the stomach. There was very mild reactive gastropathy of the antrum. There was some moderate atrophy of the body and fundus of the stomach. Cold biopsies were taken x2 of the fundus of the stomach to rule out atrophic gastritis. Upon retroflexion there was a very small 1 to 2 cm hiatal hernia without any Lio's erosions. The scope was then withdrawn into the esophagus. There was no evidence of reflux esophagitis or Dickinson's. The remainder of the esophageal mucosa was normal. Impression: 1. 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 I would recommend that the patient undergo inpatient or outpatient colonoscopy. I will follow-up the biopsies.
[2020-04-20 12:16] LABS: POC Glucose,Bedside 135 (70-110)
--- NOTE | 2020-04-20 12:18 | SUR.OPER ---
SEE ANESTHESIA RECORD FOR BLOOD VITALS
--- NOTE | 2020-04-20 13:58 | HMH.DCSUM ---
General - General Admission date:: 04/18/20 Discharge date: 04/20/20 HPI HPI: this elderly pt from local [facility]-pt on xarelto for a fib and had acute weakness -she was seen in the ed - in by ambulance from [facility]. She says that she received her second Covid vaccine on April 14, 2020 and ever since then has felt weak and short of breath. No documented fever. Has some nausea and poor appetite. She has previously had COVID-19. Denies cough. Denies vomiting or diarrhea. Denies chest pain or any other pain. She says she is a smoker, but has not smoked in a while because it has been too cold to go outside and smoke. She says normally a cigarette would last her 2 days. pt was found to have anemia and positive gi bleed and was admitted for treatment and transfusion Hospital Course Hospital Course: Laboratory Tests 04/18/20 04/18/20 04/18/20 19:15 19:15 19:15 WBC 10.2 RBC 3.05 L Hgb 6.2 L* Hct 22.8 L* MCV 74.8 L MCH 20.3 L MCHC 27.2 L RDW 16.9 Plt Count 383 MPV 7.9 Neut % (Auto) 55.7 Lymph % (Auto) 36.0 [place] % (Auto) 5.6 Eos % (Auto) 1.5 Baso % (Auto) 1.1 Neut # (Auto) 5.7 Lymph # (Auto) 3.7 [place] # (Auto) 0.6 Eos # (Auto) 0.2 Baso # (Auto) 0.1 Sodium 139 Potassium 4.8 Chloride 106 Carbon Dioxide 30 Anion Gap 7.8 BUN 36 H Creatinine 1.60 H Estimated Creat Clear 36 Estimated GFR 31 L Est GFR ( Amer) 37 L Glucose 147 H POC Glucose Calcium 9.4 Total Bilirubin 0.2 AST 18 ALT 9 L Alkaline Phosphatase 83 Troponin I < 0.01 NT-Pro-B Natriuret Pep 2820 H Total Protein 6.5 Albumin 3.4 L Globulin 3.1 Albumin/Globulin Ratio 1.1 Triglycerides Cholesterol LDL Cholesterol Direct VLDL Cholesterol HDL Cholesterol Cholesterol/HDL Ratio Stool Occult Blood Chlamy pneumoniae PCR Adenovirus (PCR) B. pertussis DNA (PCR) Coronavirus OC43 (PCR) Coronavirus HKU1 (PCR) Coronavirus 229E (PCR) SARS-CoV-2 (PCR) Coronavirus NL63 (PCR) Human Metapneumovir PCR Influenza A (H1) PCR Influ A (H1N1) PCR Influenza A (H3) PCR Influenza Type A (PCR) Influenza Type B (PCR) M. pneumoniae (PCR) Parainfluenza 1 (PCR) Parainfluenza 2 (PCR) Parainfluenza 3 (PCR) Parainfluenza 4 (PCR) RSV (PCR) Entero/Rhino (PCR) SARS-CoV-2 IgG Ab (Rapid) SARS-CoV-2 IgM Ab (Rapid) Blood Type Blood Type Confirm Antibody Screen Crossmatch (AHG) 04/18/20 04/18/20 04/18/20 19:15 19:45 19:45 WBC RBC Hgb Hct MCV MCH MCHC RDW Plt Count MPV Neut % (Auto) Lymph % (Auto) [place] % (Auto) Eos % (Auto) Baso % (Auto) Neut # (Auto) Lymph # (Auto) [place] # (Auto) Eos # (Auto) Baso # (Auto) Sodium Potassium Chloride Carbon Dioxide Anion Gap BUN Creatinine Estimated Creat Clear Estimated GFR Est GFR ( Amer) Glucose POC Glucose Calcium Total Bilirubin AST ALT Alkaline Phosphatase Troponin I NT-Pro-B Natriuret Pep Total Protein Albumin Globulin Albumin/Globulin Ratio Triglycerides Cholesterol LDL Cholesterol Direct VLDL Cholesterol HDL Cholesterol Cholesterol/HDL Ratio Stool Occult Blood Positive A Chlamy pneumoniae PCR Adenovirus (PCR) B. pertussis DNA (PCR) Coronavirus OC43 (PCR) Coronavirus HKU1 (PCR) Coronavirus 229E (PCR) SARS-CoV-2 (PCR) Coronavirus NL63 (PCR) Human Metapneumovir PCR Influenza A (H1) PCR Influ A (H1N1) PCR Influenza A (H3) PCR Influenza Type A (PCR) Influenza Type B (PCR) M. pneumoniae (PCR) Parainfluenza 1 (PCR) Parainfluenza 2 (PCR) Parainfluenza 3 (PCR) Parainfluenza 4 (PCR) RSV (PCR) Entero/Rhino (PCR) SARS-Co
[2020-04-20 14:01] LABS: Adenovirus,PCR Not Detected (NotDetected); Bordetella Pertussis Not Detected (NotDetected); Chlamydophila Pneumoniae, PCR Not Detected (NotDetected); Coronavirus 19, PCR Not Detected (NotDetected); Coronavirus 229E Not Detected (NotDetected); Coronavirus NL63 Not Detected (NotDetected); Coronavirus OC43 Not Detected (NotDetected); Coronovirus HKU1,PCR Not Detected (NotDetected); Human Metapneumovirus Not Detected (NotDetected); Influenza A, PCR Not Detected (NotDetected); Influenza AH1, 2009 Not Detected (NotDetected); Influenza AH1, PCR Not Detected (NotDetected); Influenza AH3,PCR Not Detected (NotDetected); Influenza B, PCR Not Detected (NotDetected); Mycoplasma Pneumoniae, PCR Not Detected (NotDetected); Parainfluenza 1, PCR Not Detected (NotDetected); Parainfluenza 2, PCR Not Detected (NotDetected); Parainfluenza 3, PCR Not Detected (NotDetected); Parainfluenza 4, PCR Not Detected (NotDetected); Respiratory Syncytial Virus Not Detected (NotDetected); Rhinovirus/Enterovirus Not Detected (NotDetected)
--- NOTE | 2020-04-20 14:01 | HMH.PTEV ---
Physical Therapy Evaluation Rehab PT IP Evaluation Start: 04/20/20 12:40 Freq: .once Status: Active Protocol: Document 04/20/20 13:53 PHORLISA (Rec: 04/20/20 14:01 PHORNE [id number]) Subjective/History History History 79 yowf adm to [facility] with symptomatic anemia. [facility] at [facility] and is independent with all mobility using RW at baseline. Subjective Subjective Pt reports she is tired and hungry right now. Rehab PT IP Eval Objective Appearance Patient Behavior Appropriate Patient Orientation Person,Place Difficulty following instructions none Speech Pattern Clear Ambulation Patient Able to Ambulate Yes Ambulation Observation IP General Gait Pattern Observation Wide Based Gait Ambulation Distance (feet) 10 Ambulation Assistive Device Rolling Walker Ambulation Ability Supervision/Stand by Balance Ability to Arise Able, uses arms to help Sitting Balance Steady, safe Standing Balance Steady, wide stance Dynamic Sitting Balance Ability Good Dynamic Standing Balance Ability Fair Transfers Bed Transfer Ability Supervision/Stand by Chair Transfer Ability Supervision/Stand by Sit to Stand Bed Transfer Ability Supervision/Stand by Sit to Stand Chair Transfer Ability Supervision/Stand by ROM All Extremities PT ROM Status WFL MMT All Extremities PT MMT WFL Rehab PT IP prob,goals,plan Problems Date of Evaluation: 04/20/20 PT IP Problems Transfers,Gait Rehab Potential Rehab Potential Good Plan PT Intervention Plan Bed Mobility,Transfers,Gait, Therapeutic Exercise PT Plan Frequency BID Duration LOS Discharge Goals Bed Transfer Ability Independent Sit to Stand Chair Transfer Ability Independent Ambulation Assistive Device Rolling Walker Ambulation Distance (feet) 25 Discharge Plan PT Discharge Plan Pt is appropriate to return to personal senior care once medically stable. G -code Required No Eval Complexity Eval Charge Codes 13510 - Moderate Complexity PHYSICIAN CERTIFICATION: I certify the specified therapy services for Cece Chambers are required, authorized, and reviewed every 30 days.
--- NOTE | 2020-04-20 14:10 | SW/DCPLANNER ---
Addendum entered by Irene Blair 04/20/20 15:18: COVID swab is NEGATIVE and has been faxed to Denton at [facility]. Addendum entered by Irene Blair 04/20/20 15:17: Patient can discharge back to [facility] today via [facility] if blood is finished and patient is ready to discharge by 5:30 when [facility] stops transporting. If patient is not ready till after 5:30 then patient must wait till tomorrow to discharge due to [employer] not transporting and Trista with [facility] stated they have no means of transportation for patients. I have relayed information to patients nurse (Ale) and Brittni. Original Note: This patient currently resides at [facility]. I have spoke with Denton from [facility] and they have stated: pending COVID (ordered) and PT evaluation (can return at d/c) they can accept this patient back. Once all discharge information is in and COVID swab results I will set up [facility] [employer] for this patient.
--- NOTE | 2020-04-20 14:46 | SUR.PHASEII ---
Riley-called report to [place] at [phone]
--- NOTE | 2020-04-20 15:03 | HMH.ACPN2 ---
Internal Medicine - PN: Subj *Date: 04/20/20 *Time: 15:03 Interval history: pt did not dc today due to needing 2 units prbc and no transportation [facility]. Exam Vital signs and Labs for Last 24 Hours: Temp Pulse Resp BP Pulse Ox 98.0 F 65 16 138/58 L 100 04/20/20 15:00 04/20/20 15:00 04/20/20 15:00 04/20/20 15:00 04/20/20 15:00 Laboratory Results - last 24 hr 04/18/20 19:45: Blood Type A Positive, Antibody Screen Negative, Crossmatch (AHG) See Detail 04/19/20 17:05: POC Glucose 160 H 04/19/20 21:10: POC Glucose 135 H 04/20/20 05:16: POC Glucose 108 04/20/20 06:57: WBC 10.6, RBC 3.65 L, Hgb 8.2 L, Hct 28.8 L, MCV 78.8 L, MCH 22.4 L, MCHC 28.5 L, RDW 17.5, Plt Count 276, MPV 7.6, Neut % (Auto) 50.7, Lymph % (Auto) 36.8, [place] % (Auto) 6.7, Eos % (Auto) 4.6, Baso % (Auto) 1.2, Neut # (Auto) 5.4, Lymph # (Auto) 3.9, [place] # (Auto) 0.7, Eos # (Auto) 0.5 H, Baso # (Auto) 0.1 04/20/20 06:57: Sodium 139, Potassium 5.0 D, Chloride 110 H, Carbon Dioxide 30, Anion Gap 4.0 L, BUN 32 H, Creatinine 1.40 H, Estimated Creat Clear 38, Estimated GFR 36 L, Est GFR ( Amer) 44 L, Glucose 113 H, Calcium 8.7, Triglycerides 119, Cholesterol 122 L, LDL Cholesterol Direct 64.95 L, VLDL Cholesterol 24, HDL Cholesterol 33 L, Cholesterol/HDL Ratio 3.7 H 04/20/20 12:09: POC Glucose 135 H I & O for Last 24 hours: Intake & Output 04/18/20 04/19/20 04/20/20 04/21/20 11:59 11:59 11:59 11:59 Intake Total 1004 / 1004 1177 / 1177 0 / 0 Output Total 200 / 200 Balance 804 / 804 1177 / 1177 0 / 0 Weight 180 lb 9 oz 167 lb 8.821 oz - Constitutional no acute distress, obese - *Routine HEENT Exam Head: Present: normocephalic Eye: Present: PERRL ENT: Present: mucous membranes moist - *Routine Neck Exam Present: supple. Absent: lymphadenopathy - *Routine Respiratory Exam Present: CTA bilaterally - *Routine Cardiovascular Exam Present: RRR - *Routine Abdominal Exam Present: soft, normoactive bowel sounds. Absent: tenderness - *Routine Extremities Exam Absent: cyanosis, clubbing, edema - *Routine Skin Exam Present: warm. Absent: rash - *Routine Neurological Exam Present: alert, oriented X3 - Routine Psychiatric Exam Present: normal affect Assessment and Plan (1) Atrial fibrillation Status: Acute Qualifiers: Atrial fibrillation type: unspecified Qualified Code(s): I48.91 - Unspecified atrial fibrillation Category: Medical Code(s): I48.91 - Unspecified atrial fibrillation (2) Blood loss anemia Status: Acute Category: Medical Code(s): D50.0 - Iron deficiency anemia secondary to blood loss (chronic) (3) UGI bleed Status: Acute Category: Medical Code(s): K92.2 - Gastrointestinal hemorrhage, unspecified (4) Diabetes mellitus, insulin dependent (IDDM), controlled Status: Acute Category: Medical (5) Hypothyroidism (acquired) Status: Acute Category: Medical Code(s): E03.9 - Hypothyroidism, unspecified (6) Obesity (BMI 30-39.9) Status: Acute Category: Medical Code(s): E66.9 - Obesity, unspecified (7) CAD (coronary artery disease) Status: Acute Category: Medical Code(s): I25.10 - Atherosclerotic heart disease of [place] coronary artery without angina pectoris (8) HTN (hypertension) Status: Chronic Category: Medical Code(s): I10 - Essential (primary) hypertension - Assessment and plan all Dx Assessment and Plan for all problems:: rounded with dr muhammad all orders per dr muhammad
--- NOTE | 2020-04-20 15:10 | P.PN_ITS ---
[facility] Anesthesia Checklist - Patient Identification Patient Identification: Arm Band - Structural Data Admitted From: Inpatient Planned Operative Procedure/s: egd Consent for Planned Operative Procedure(s) Verified: Yes Verified Documents: Surgical Consent, History and Physical - NPO Status Verified Time NPO: 00:00 - Additional verifications Anesthesia Reactions: No - Airway Assessment C-Spine Mobility Assessed: Yes (mp3) TMJ Mobility Assessed: Yes Dentition: Edentulous - Neurological Assessment Level of Consciousness: Awake, Alert - Anesthesia Plan Anesthesia Risk discussed: Yes Anesthesia Plan: Verified ASA Class: III Anesthesia Type: MAC [facility] History I have reviewed the patient's past medical history: Yes Medical History: Reports:: Atrial Fibrillation, Congestive Heart Failure, Chronic Obstructive Pulmonary Disease (COPD), Coronary Artery Disease, Diabetes Mellitus Type 2, Hyperlipidemia, Hypertension, Myocardial Infarction Denies:: Cancer, Diabetes Mellitus Type 1, MRSA *Have you ever received a pneumonia vaccine?: Yes *Have you received a flu vaccine this season?: Yes Other Medical History: Reports: Arthritis, Hypothyroidism Anesthesia experience/problems:: nac Other Surgeries: Yes: Cardiac Catheterization, Coronary Stent Amputation: No - *Social History Smoking Status: Never smoker Alcohol Intake: never Substance Use Type: denies use *Occupational Status:: disabled Housing: assisted living facility Household Members: other *Travel in the last 8 weeks: None Family Hx:: Unable to obtain
[2020-04-20 17:21] LABS: POC Glucose,Bedside 169 (70-110)
[2020-04-20 19:25] LABS: Hematocrit 38.8 % (37.0-47.0); Hemoglobin 12.3 g/dL (12.2-16.2)
[2020-04-20 20:29] LABS: POC Glucose,Bedside 117 (70-110)
--- NOTE | 2020-04-20 20:30 | PC.NURSE ---
per Dr. Talamantes, keep protonix drip running but not fluids
--- NOTE | 2020-04-20 20:42 | PC.NURSE ---
THIS RN PHONED KUNAL IN REGARDS TO PATIENT D/C. PER MD, PATIENT CAN LEAVE AFTER 2ND UNIT OF BLOOD ADMINISTRATION. PER RAMSEY MADRIGAL, PATIENT'S TRANSPORTATION RUNS UNTIL 1730. PATIENT BEGAN STATING SHE WAS SOB. PATIENT WAS REPOSITIONED AND STATED SHE FELT FINE. PATIENT STATED AGAIN THAT SHE FELT SOA, THIS RN NOTICED PATIENT WORK OF BREATHING HAD INCREASED, THIS RN ASSESSED PATIENT O2, STATS WERE 98% ON RA. 2L O2 WAS PLACED FOR COMFORT. THIS RN PHONED DR. ECHEVERRIA AND REPORTED FINDINGS. MD ORDERED 80MG IV LASIX 1X AND 25MG IV BENADRYL 1X. PATIENT HAD ADEQUATE AMOUNT OF URINE OUTPUT. PATIENT HAD PERIWICK IN PLACE BUT WITH MOVEMENT, PERIWICK DISLODGED AND PATIENT HAD 2 FULL BRIEFS NOTED. NO NEW CONCERNS AT THIS TIME.
--- NOTE | 2020-04-20 21:13 | PC.NURSE ---
1ST UNIT OF BLOOD ADMINISTRATION WAS DELAYED DUE TO SURGERY PHONED STATING THEY WOULD BE UP TO [facility] PATIENT IN 15MIN. SURGERY PHONED AGAIN STATING THEY WOULD BE UP IN 10 MIN. SURGERY PHONED AGAIN STATING THEY WOULD BE UP BY 1130. THIS RN BEGAN THE ADMINISTRATION OF THE 1ST UNIT, SURGERY CONTINUED WITH VITALS WHILE RUNNING.
[2020-04-21] VITALS: BP 134/62; PULSE 81; RESP 16; TEMP 37.1; O2SAT 95
[2020-04-21 04:00] VITALS: BP 142/71; PULSE 70; RESP 19; TEMP 37; O2SAT 95
[2020-04-21 05:00] VITALS: BMI 35.3
[2020-04-21 05:56] LABS: POC Glucose,Bedside 140 (70-110)
--- NOTE | 2020-04-21 05:59 | PC.NURSE ---
pt is AxOx4, no acute changes since prior assessment, ambulated to BR with one assist at beginning of shift, had a large BM during shift, lungs CTA, remains on room air with sats 95-98%, no complaints of N/V/D or pain
[2020-04-21 08:00] VITALS: BP 150/72; PULSE 64; RESP 18; TEMP 36.6; O2SAT 98
--- NOTE | 2020-04-21 09:12 | HMH.ACPN2 ---
Internal Medicine - PN: Subj *Date: 04/21/20 *Time: 09:13 Interval history: pt doing better this am -labs ok - vss - Exam Vital signs and Labs for Last 24 Hours: Temp Pulse Resp BP Pulse Ox 97.9 F 64 18 150/72 H 98 04/21/20 08:00 04/21/20 08:00 04/21/20 08:00 04/21/20 08:00 04/21/20 08:00 Laboratory Results - last 24 hr 04/18/20 19:45: Blood Type A Positive, Antibody Screen Negative, Crossmatch (AHG) See Detail 04/20/20 12:09: POC Glucose 135 H 04/20/20 13:52: Chlamy pneumoniae PCR Not detected, Adenovirus (PCR) Not detected, B. pertussis DNA (PCR) Not detected, Coronavirus OC43 (PCR) Not detected, Coronavirus HKU1 (PCR) Not detected, Coronavirus 229E (PCR) Not detected, SARS-CoV-2 (PCR) Not detected, Coronavirus NL63 (PCR) Not detected, Human Metapneumovir PCR Not detected, Influenza A (H1) PCR Not detected, Influ A (H1N1/09) PCR Not detected, Influenza A (H3) PCR Not detected, Influenza Type A (PCR) Not detected, Influenza Type B (PCR) Not detected, M. pneumoniae (PCR) Not detected, Parainfluenza 1 (PCR) Not detected, Parainfluenza 2 (PCR) Not detected, Parainfluenza 3 (PCR) Not detected, Parainfluenza 4 (PCR) Not detected, RSV (PCR) Not detected, Entero/Rhino (PCR) Not detected 04/20/20 17:01: POC Glucose 169 H 04/20/20 19:05: Hgb 12.3 D, Hct 38.8 04/20/20 20:21: POC Glucose 117 H 04/21/20 05:44: POC Glucose 140 H I & O for Last 24 hours: Intake & Output 04/18/20 04/19/20 04/20/20 04/21/20 11:59 11:59 11:59 11:59 Intake Total 1004 / 1004 1177 / 1177 575 / 575 Output Total 200 / 200 Balance 804 / 804 1177 / 1177 575 / 575 Weight 180 lb 9 oz 167 lb 8.821 oz 175 lb 3 oz - Constitutional no acute distress, obese - *Routine HEENT Exam Head: Present: normocephalic Eye: Present: EOMI, PERRL ENT: Present: mucous membranes dry - *Routine Neck Exam Present: supple - *Routine Respiratory Exam Present: CTA bilaterally - *Routine Cardiovascular Exam Present: RRR - *Routine Abdominal Exam Present: soft - *Routine Extremities Exam Absent: calf tenderness - *Routine Skin Exam Present: intact - *Routine Neurological Exam Present: alert, oriented X3, CN II-XII intact - Routine Psychiatric Exam Present: normal affect Assessment and Plan (1) Atrial fibrillation Status: Acute Qualifiers: Atrial fibrillation type: unspecified Qualified Code(s): I48.91 - Unspecified atrial fibrillation Category: Medical Code(s): I48.91 - Unspecified atrial fibrillation (2) Blood loss anemia Status: Acute Category: Medical Code(s): D50.0 - Iron deficiency anemia secondary to blood loss (chronic) (3) UGI bleed Status: Acute Category: Medical Code(s): K92.2 - Gastrointestinal hemorrhage, unspecified (4) Diabetes mellitus, insulin dependent (IDDM), controlled Status: Acute Category: Medical (5) Hypothyroidism (acquired) Status: Acute Category: Medical Code(s): E03.9 - Hypothyroidism, unspecified (6) Obesity (BMI 30-39.9) Status: Acute Category: Medical Code(s): E66.9 - Obesity, unspecified (7) CAD (coronary artery disease) Status: Acute Category: Medical Code(s): I25.10 - Atherosclerotic heart disease of [place] coronary artery without angina pectoris (8) HTN (hypertension) Status: Chronic Category: Medical Code(s): I10 - Essential (primary) hypertension
[2020-04-21 11:48] LABS: POC Glucose,Bedside 126 (70-110)
--- NOTE | 2020-04-21 12:43 | PC.NURSE ---
CALLED REPORT TO МАРИНА AT [facility]. THEY SAID THEY WOULD BE HERE AROUND 1PM.
== END 2020-04-21 13:02 | disposition home or self-care (01) | DRG 812 ==
LOC: ER 18:16 → 2ND 20:16
PROVIDERS: Internal Medicine Gastroenterology; Nurse Practitioner Family; Surgery; Admitting Provider Emergency Medicine; Emergency Provider Emergency Medicine; PCP Emergency Medicine; Visit Provider Emergency Medicine
PROC: 0DJ08ZZ Inspection of Upper Intestinal Tract, Via Natural or Artificial Opening Endoscopic (ICD-10-PCS; CPT 43235; principal; 2020-04-20 11:00)
DX: D50.0 Iron deficiency anemia secondary to blood loss (chronic) (principal); K92.2 Gastrointestinal hemorrhage, unspecified; I48.20 Chronic atrial fibrillation, unspecified; I11.0 Hypertensive heart disease with heart failure; I50.9 Heart failure, unspecified; E11.9 Type 2 diabetes mellitus without complications; I25.10 Atherosclerotic heart disease of native coronary artery without angina pectoris; I25.2 Old myocardial infarction; E03.9 Hypothyroidism, unspecified; J44.9 Chronic obstructive pulmonary disease, unspecified; Z79.01 Long term (current) use of anticoagulants; Z79.899 Other long term (current) drug therapy; Z79.4 Long term (current) use of insulin; Z79.51 Long term (current) use of inhaled steroids; Z88.5 Allergy status to narcotic agent
CPT/HCPCS: 43239; 36415; 36430; 71045; 80048; 80053; 80061; 82272; 82962; 83880; 84484; 85014; 85018; 85025; 86328; 86850; 87581; 87633; 87798; 88305; 88342; 93005; 93306; 96365; 96375; 97162; 99284; G0328; P9016

== ENCOUNTER 2020-05-22 13:26 | Emergency (ER) | payer MEDICARE, OTHER, SELFPAY ==
[2020-05-22] VITALS (7 sets, daily range): BP systolic 96–154; BP diastolic 46–83; PULSE 67–104; RESP 17–18; TEMP 36.6–37.1; O2SAT 92–100; BMI 37.1
--- NOTE | 2020-05-22 13:23 | ECG_ITS ---
APPROVED REPORT Exam: Resting ECG HR:91 bpm ECG Measurements Heart Rate 91 AXES QRSd 82 QRS 40 QT 354 T 21 QTc 435 Conclusion Atrial fibrillation Low voltage QRS Cannot rule out Anteroseptal infarct, age undetermined Abnormal ECG Electronically signed by : Jesse Kilgore, 05/22/2020 20:52:07
--- NOTE | 2020-05-22 13:28 | XR_ITS ---
PROCEDURE: XR CHEST 2V CLINICAL HISTORY: chest pain COMPARISON: CR XR CHEST PORTABLE from 01/28/2020 CR XR CHEST PORTABLE from 01/29/[address] ANGIO CHEST from 01/30/2020 CR XR CHEST PORTABLE from 04/18/2020 FINDINGS: Lung price expanded. There is subtle patchy ill-defined opacities in the right suprahilar region and right upper lobe and also in the right lower lobe. These were not present on most recent chest film 04/18/2020. The left lung is well expanded and clear. There is mild generalized cardiomegaly but there is no pulmonary congestion and there is no definite pleural fluid. There prominent degenerate changes of both shoulders right greater than left. IMPRESSION: Right upper lobe and right perihilar and right middle lobe ill-defined pneumonic infiltrates Dictated by: Dr. Bertin Arreaga MD 05/22/2020 14:22 Dr. Bertin Arreaga MD in [place] 05/22/2020 14:22
--- NOTE | 2020-05-22 13:38 | HMH.EDGENADL ---
ED Disposition Clinical Impression: Shortness of breath Disposition: Home, Self-Care Condition on Discharge: Fair Instructions: DI for Shortness of Breath Prescriptions: Furosemide [Lasix 20mg tab] 20 mg PO DAILY #10 tab Transmission Status: Received by [facility] predniSONE [Prednisone 20mg Tab] 40 mg PO DAILY 5 Days #10 tab Transmission Status: Received by [facility] Referrals: PCP,No [Primary Care Provider] - - Critical Care Critical Care Time: No Attestation: On 05/22/20, the high probability of a clinically significant, sudden or life threatening deterioration of the following system(s) required my full and direct attention, intervention and personal management. The time I documented below is in addition to time spent performing reported procedures but includes the following listed in this critical care notation. Medical Decision Making - Medical Records Medical records reviewed: Yes: I reviewed the patient's medical records. - Cristian Inquiry Pt receiving controlled substance: No Vital Signs: 05/22/20 13:26 05/22/20 13:59 05/22/20 15:04 Temperature 98.7 F Temperature Source Oral Pulse Rate [Left Radial] 80 73 67 Respiratory Rate 18 Blood Pressure [Right Arm] 152/53 H 141/60 H 154/52 H Blood Pressure Mean [Right Arm] 86 87 86 Blood Pressure Source [Right Arm] Automatic Cuff Automatic Cuff Automatic Cuff Blood Pressure Position [Right Arm] Sitting Sitting Sitting 02 Sat by Pulse Oximetry 100 95 92 L Oxygen Delivery Method Room Air Room Air Room Air 05/22/20 15:30 05/22/20 16:30 Temperature Temperature Source Pulse Rate [Left Radial] 68 79 Respiratory Rate Blood Pressure [Right Arm] 146/46 H 96/57 L Blood Pressure Mean [Right Arm] 79 70 Blood Pressure Source [Right Arm] Automatic Cuff Automatic Cuff Blood Pressure Position [Right Arm] Sitting Sitting 02 Sat by Pulse Oximetry 99 98 Oxygen Delivery Method Room Air Room Air - Lab Data Lab Results 05/22/20 13:36: VBG pH 7.38, VBG pCO2 41.3, VBG pO2 47.2 H, VBG HCO3 23.9, VBG Total CO2 25.2, VBG O2 Saturation 81.9 H, VBG Base Excess -1.2 05/22/20 13:55: WBC 11.7 H, RBC 4.10 L, Hgb 8.9 L, Hct 31.1 L, MCV 75.8 L, MCH 21.7 L, MCHC 28.6 L, RDW 19.9 H, Plt Count 316, MPV 7.6, Neut % (Auto) 64.4, Lymph % (Auto) 24.7, Day % (Auto) 6.0, Eos % (Auto) 3.7, Baso % (Auto) 1.2, Neut # (Auto) 7.5, Lymph # (Auto) 2.9, Day # (Auto) 0.7, Eos # (Auto) 0.4, Baso # (Auto) 0.1 05/22/20 13:55: Sodium 142, Potassium 4.7, Chloride 109 H, Carbon Dioxide 28, Anion Gap 9.7, BUN 18 H, Creatinine 1.10 H, Estimated Creat Clear 53, Estimated GFR 48 L, Est GFR ( Amer) 58 L, Glucose 168 H, Calcium 9.1, Troponin I < 0.01 05/22/20 13:55: NT-Pro-B Natriuret Pep 3820 H 05/22/20 16:50: Troponin I < 0.01 Result diagrams: 05/22/20 13:55 05/22/20 13:55 Orders (Tests/Meds): ED MEDICATIONS Discontinued Medications Generic Name Dose Route Start Last Admin Trade Name Gerardoq PRN Reason Stop Dose Admin Aspirin 324 mg 05/22/20 13:28 05/22/20 13:48 Aspirin 81mg Chewable Tablet PO 05/22/20 13:29 324 mg ONCE ONE Administration Furosemide 20 mg 05/22/20 16:24 05/22/20 16:38 Furosemide 20mg Tablet PO 05/22/20 16:25 20 mg ONCE ONE Administration Methylprednisolone Sodium Succinate 125 mg 05/22/20 16:25 05/22/20 16:38 Methylprednisolone Sod Succ 125mg Vial IV 05/22/20 16:26 125 mg ONCE ONE Administration ORDERS Category Date Time Status Troponin I Q3H Lab 05/22/20 19:30 Ordered Medical Decision Narrative: Summary this is an 79-year-old female presenting to the emergency department with dyspnea. Patient clinically stable on arrival. Vital signs within normal limits. Concern for COPD exacerbation, CHF exacerbation. Will obtain CBC, CMP, chest x-ray, VBG, EKG, troponin profile, BNP. Echocardiogram reviewed from 04/19/2020. Shows ejection fraction of 55%. Mild mitral regurgitation, and aortic stenosis,
[2020-05-22 14:08] LABS: Chloride 109 mmol/L (98-107); Potassium 4.7 mmoL/L (3.5-5.1); Sodium 142 mmol/L (136-145)
[2020-05-22 14:11] LABS: Blood Urea Nitrogen 18 mg/dl (7-17); Creatinine Clearance Estimated 53 mL/min (50-200); Estimated Glomerular Filt Rate 48 ml/min (>60); GFR (African American) 58 ML/MIN (>60)
[2020-05-22 14:12] LABS: Anion Gap 9.7 mEq/L (5-15); Calcium 9.1 mg/dl (8.4-10.2); Carbon Dioxide 28 mmol/L (22.0-30.0); Glucose 168 mg/dl (74-100)
[2020-05-22 14:21] LABS: NT Pro Brain Natriuretic Pep. 3820 pg/mL (0-450)
[2020-05-22 14:23] LABS: Basophils # 0.1 K/mm3 (0-0.2); Basophils % 1.2 % (0.1-2.0); Eosinophils # 0.4 K/mm3 (0.0-0.4); Eosinophils % 3.7 % (0.1-12.0); Hematocrit 31.1 % (37.0-47.0); Hemoglobin 8.9 g/dL (12.2-16.2); Lymphocytes # 2.9 K/mm3 (0.7-4.5); Lymphocytes % 24.7 % (10-50); Mean Corpuscular HGB Conc 28.6 g/dL (31.8-35.4); Mean Corpuscular Hemoglobin 21.7 pg (27.0-31.2); Mean Corpuscular Volume 75.8 fl (81-99); Mean Platelet Volume 7.6 fl (7.4-10.4); Monocytes # 0.7 K/mm3 (0.1-1.0); Neutrophils # 7.5 K/mm3 (1.8-7.8); Neutrophils % 64.4 % (37.0-80.0); Platelet Count 316 K/mm3 (142-424); Red Cell Distribution Width 19.9 % (11.5-17.5); White Blood Count 11.7 K/mm3 (4.8-10.8)
[2020-05-22 14:28] LABS: Troponin I < 0.01 ng/ml (0.00-0.034)
[2020-05-22 14:40] LABS: VBG Base Excess -1.2 mmol/L (-2.4-2.3); VBG HCO3 23.9 mmol/L (23-30); VBG Oxygen Saturation 81.9 % (50-70); VBG PCO2 41.3 mmol/L (35-51); VBG PH 7.38 mmol/L (7.31-7.41); VBG PO2 47.2 mmol/L (28-40); VBG Total CO2 25.2 mmol/L (23-27)
[2020-05-22 17:33] LABS: Troponin I < 0.01 ng/ml (0.00-0.034)
== END 2020-05-22 18:00 | disposition home or self-care (01) ==
PROVIDERS: Emergency Provider Emergency Medicine
DX: Z20.822 Contact with and (suspected) exposure to COVID-19 (principal); R06.02 Shortness of breath; I48.91 Unspecified atrial fibrillation; I25.10 Atherosclerotic heart disease of native coronary artery without angina pectoris; J44.9 Chronic obstructive pulmonary disease, unspecified; E11.9 Type 2 diabetes mellitus without complications; E78.5 Hyperlipidemia, unspecified; I10 Essential (primary) hypertension; I25.2 Old myocardial infarction; F17.210 Nicotine dependence, cigarettes, uncomplicated; Z79.4 Long term (current) use of insulin; Z79.899 Other long term (current) drug therapy; Z88.5 Allergy status to narcotic agent
CPT/HCPCS: 71046; 80048; 82803; 83880; 84484; 85025; 93005; 96374; 99283; U0003

== ENCOUNTER 2020-06-05 07:34 | Observation (INO) | payer MEDICARE, OTHER, SELFPAY ==
[2020-06-05] VITALS (26 sets, daily range): BP systolic 88–170; BP diastolic 55–97; PULSE 56–125; RESP 16–22; TEMP 36.5–37.2; O2SAT 90–99; BMI 36.9; BMI 37.0
--- NOTE | 2020-06-05 07:41 | XR_ITS ---
PROCEDURE: XR CHEST PORTABLE CLINICAL HISTORY: SOA COMPARISON: CR XR CHEST PORTABLE from 01/29/[address] ANGIO CHEST from 01/30/2020 CR XR CHEST PORTABLE from 04/18/2020 CR XR CHEST 2V from 05/22/2020 FINDINGS: The cardiomediastinal silhouette and pulmonary vascularity are within normal limits. There are low lung volumes. Increased markings are present in both lower lobes which may be due to areas of atelectasis and/or infiltrate. There is also patchy density in the left upper lobe overlying the 1st rib suggesting an area of infiltrate. No acute bony abnormalities. IMPRESSION: Low lung volumes with bibasilar atelectasis and/or infiltrate with patchy infiltrate in the left upper lobe Dictated by: Yoel Tay MD 06/05/2020 08:40 Yoel Tay MD in [place] 06/05/2020 08:40
--- NOTE | 2020-06-05 07:42 | ECG_ITS ---
APPROVED REPORT Exam: Resting ECG HR:105 bpm ECG Measurements Heart Rate 105 AXES QRSd 80 QRS 2 QT 330 T 37 QTc 436 Conclusion Atrial fibrillation with rapid ventricular response Low voltage QRS Septal infarct, age undetermined Possible Lateral infarct, age undetermined Abnormal ECG Electronically signed by : Jesse Kilgore, 06/06/2020 17:48:27
--- NOTE | 2020-06-05 08:11 | HMH.EDGENADL ---
ED Disposition Clinical Impression: COPD exacerbation CHF (congestive heart failure) Qualifiers: Heart failure type: unspecified Heart failure chronicity: acute on chronic Qualified Code(s): I50.9 - Heart failure, unspecified Anemia Qualifiers: Anemia type: unspecified type Qualified Code(s): D64.9 - Anemia, unspecified Atrial fibrillation Qualifiers: Atrial fibrillation type: longstanding persistent Qualified Code(s): I48.11 - Longstanding persistent atrial fibrillation Dyspnea Qualifiers: Dyspnea type: shortness of breath Qualified Code(s): R06.02 - Shortness of breath Disposition: Admitted as Observation Condition on Discharge: Fair Referrals: Reggie Gandhi MD [Primary Care Provider] - - Critical Care Critical Care Time: No Attestation: On 06/05/20, the high probability of a clinically significant, sudden or life threatening deterioration of the following system(s) required my full and direct attention, intervention and personal management. The time I documented below is in addition to time spent performing reported procedures but includes the following listed in this critical care notation. Medical Decision Making - Medical Records Medical records reviewed: Yes: I reviewed the patient's medical records. MR Comment: Seen here on 05/22/2020 in the emergency department for shortness of breath. Collins to be multifactorial with congestive heart failure and COPD. Was discharged on Lasix and prednisone. Most recent echocardiogram reviewed, see below. Admitted here 04/18/2020 through 04/20/2020 for GI bleed and anemia. Found to have erosive gastritis on EGD. Required transfusion. Taken off of Xarelto. - Cristian Inquiry Pt receiving controlled substance: No Vital Signs: 06/05/20 07:35 06/05/20 07:45 06/05/20 07:59 Temperature 98.1 F Temperature Source Oral Pulse Rate 83 74 Pulse Rate [Right Radial] 107 H Respiratory Rate 20 Blood Pressure Blood Pressure [Right Arm] 170/85 H Blood Pressure Mean Blood Pressure Mean [Right Arm] 113 Blood Pressure Source [Right Arm] Automatic Cuff Blood Pressure Position [Right Arm] Sitting 02 Sat by Pulse Oximetry 96 Oxygen Delivery Method Room Air 06/05/20 08:01 06/05/20 08:15 06/05/20 08:30 Temperature Temperature Source Pulse Rate 98 H 91 H 96 H Pulse Rate [Right Radial] Respiratory Rate Blood Pressure 135/55 L 133/63 Blood Pressure [Right Arm] Blood Pressure Mean 76 74 Blood Pressure Mean [Right Arm] Blood Pressure Source [Right Arm] Blood Pressure Position [Right Arm] 02 Sat by Pulse Oximetry 95 97 92 L Oxygen Delivery Method 06/05/20 08:45 06/05/20 08:59 06/05/20 09:01 Temperature Temperature Source Pulse Rate 91 H 94 H Pulse Rate [Right Radial] Respiratory Rate Blood Pressure 155/83 H Blood Pressure [Right Arm] Blood Pressure Mean 95 Blood Pressure Mean [Right Arm] Blood Pressure Source [Right Arm] Blood Pressure Position [Right Arm] 02 Sat by Pulse Oximetry 97 98 Oxygen Delivery Method - Lab Data Lab Results 06/05/20 08:01: WBC 11.0 H, RBC 4.44, Hgb 8.9 L, Hct 32.0 L, MCV 72.0 L, MCH 20.1 L, MCHC 27.9 L, RDW 20.1 H, Plt Count 436 H, MPV 8.5, Neut % (Auto) 67.4, Lymph % (Auto) 21.2, [place] % (Auto) 6.0, Eos % (Auto) 4.2, Baso % (Auto) 1.2, Neut # (Auto) 7.4, Lymph # (Auto) 2.3, [place] # (Auto) 0.7, Eos # (Auto) 0.5 H, Baso # (Auto) 0.1 06/05/20 08:01: Sodium 140, Potassium 4.2, Chloride 108 H, Carbon Dioxide 28, Anion Gap 8.2, BUN 17, Creatinine 1.10 H, Estimated Creat Clear 53, Estimated GFR 48 L, Est GFR ( Amer) 58 L, Glucose 164 H, Calcium 8.9, Total Bilirubin 0.5, AST 28, ALT 16, Alkaline Phosphatase 122, Troponin I < 0.01, Total Protein 6.9, Albumin 3.5, Globulin 3.4 H, Albumin/Globulin Ratio 1.0 L 06/05/20 08:01: Lactate 1.3 06/05/20 08:01: NT-Pro-B Natriuret Pep 2450 H Result diagrams: 06/05/20 08:01 06/05/20 08:01 Orders (Tests/Meds):
[2020-06-05 08:15] LABS: Adenovirus,PCR Not Detected (NotDetected); Bordetella Pertussis Not Detected (NotDetected); Chlamydophila Pneumoniae, PCR Not Detected (NotDetected); Coronavirus 19, PCR Not Detected (NotDetected); Coronavirus 229E Not Detected (NotDetected); Coronavirus NL63 Not Detected (NotDetected); Coronavirus OC43 Not Detected (NotDetected); Coronovirus HKU1,PCR Not Detected (NotDetected); Human Metapneumovirus Not Detected (NotDetected); Influenza A, PCR Not Detected (NotDetected); Influenza AH1, 2009 Not Detected (NotDetected); Influenza AH1, PCR Not Detected (NotDetected); Influenza AH3,PCR Not Detected (NotDetected); Influenza B, PCR Not Detected (NotDetected); Mycoplasma Pneumoniae, PCR Not Detected (NotDetected); Parainfluenza 1, PCR Not Detected (NotDetected); Parainfluenza 2, PCR Not Detected (NotDetected); Parainfluenza 3, PCR Not Detected (NotDetected); Parainfluenza 4, PCR Not Detected (NotDetected); Respiratory Syncytial Virus Not Detected (NotDetected); Rhinovirus/Enterovirus Not Detected (NotDetected)
[2020-06-05 08:21] LABS: Basophils # 0.1 K/mm3 (0-0.2); Basophils % 1.2 % (0.1-2.0); Eosinophils # 0.5 K/mm3 (0.0-0.4); Eosinophils % 4.2 % (0.1-12.0); Hemoglobin 8.9 g/dL (12.2-16.2); Lymphocytes # 2.3 K/mm3 (0.7-4.5); Lymphocytes % 21.2 % (10-50); Mean Corpuscular HGB Conc 27.9 g/dL (31.8-35.4); Mean Corpuscular Hemoglobin 20.1 pg (27.0-31.2); Mean Platelet Volume 8.5 fl (7.4-10.4); Monocytes # 0.7 K/mm3 (0.1-1.0); Neutrophils # 7.4 K/mm3 (1.8-7.8); Neutrophils % 67.4 % (37.0-80.0); Platelet Count 436 K/mm3 (142-424); Red Blood Count 4.44 M/mm3 (4.20-5.40); Red Cell Distribution Width 20.1 % (11.5-17.5)
[2020-06-05 08:28] LABS: Chloride 108 mmol/L (98-107)
[2020-06-05 08:29] LABS: Potassium 4.2 mmoL/L (3.5-5.1); Sodium 140 mmol/L (136-145)
[2020-06-05 08:31] LABS: Alanine Aminotransferase 16 U/L (12-78); Aspartate Amino Transferase 28 U/L (14-36); Bilirubin,Total 0.5 mg/dl (0.2-1.3); Blood Urea Nitrogen 17 mg/dl (7-17); Creatinine Clearance Estimated 53 mL/min (50-200); Estimated Glomerular Filt Rate 48 ml/min (>60); GFR (African American) 58 ML/MIN (>60)
[2020-06-05 08:32] LABS: Albumin Level 3.5 g/dl (3.5-5.0); Alkaline Phosphatase 122 U/L (38-126); Anion Gap 8.2 mEq/L (5-15); Calcium 8.9 mg/dl (8.4-10.2); Carbon Dioxide 28 mmol/L (22.0-30.0); Globulin 3.4 g/dL (1.3-3.2); Glucose 164 mg/dl (74-100); Lactic Acid 1.3 mmol/L (0.7-2.1); Total Protein,Serum 6.9 g/dl (6.3-8.2)
[2020-06-05 08:48] LABS: Troponin I < 0.01 ng/ml (0.00-0.034)
[2020-06-05 08:49] LABS: NT Pro Brain Natriuretic Pep. 2450 pg/mL (0-450)
--- NOTE | 2020-06-05 09:25 | CA_ITS ---
APPROVED REPORT EXAM: Comprehensive 2D, Doppler, and color-flow Echocardiogram [employer] Service: Concepción Patiño RT(R) Ht: 4 ft 11 in Wt: 184lbs BSA: 1.78 BP: 170/85 mmHg Indications: SOA, COPD, smoker, HTN, DM, hyperlipidemia, CHF, AFIB, CAD, hx CO 2D Dimensions LVOT 1.92 cm (M/F) 1.5-2.5 LVEF (Grimm's) 52.40 % F: 54 - 74 LV Volume 61.50 mL F: 46 - 106 LV Volume Index 34.55 mL/m2 F: 29 - 61 M-Mode Dimensions RVDd 3.23 cm (0.9-2.6) LA Diam 4.00 cm (1.9-4.0) LVDd 5.01 cm (3.5-5.7) Ao Diam 2.26 cm (2.0-3.7) LVDs 4.08 cm (3.5-5.7) IVSd 0.76 cm (0.6-1.1) PWd 0.98 cm (0.6-1.1) EF (Teich) 38.20% FS 18.60% EDV (Teich) 118.80 mL ESV (Teich) 73.40 mL Aortic Valve LVOT Max 88.00 (70-110 cm/s) LVOT VTI 18.26 cm AoV Peak Merritt. 186.00 (50-130 cm/s) AI PHT 551.00 ms AO Peak GR. 13.90 mmHg AO Mean GR. 6.80 (<5 mmHg) AO VTI 33.48 (18-25 cm) ELROY (VTI) 1.58 (2.5-4.5 cm2) Mitral Valve MV Mean Gr. 7.00 (<2mmHg) MV PHT 63.00 ms Tricuspid Valve TR P. Velocity 227.00 cm/s RAP Estimate 15.00 mmHg RVSP 35.50 mmHg Left Ventricle Technically difficult study because of the patient factors and poor acoustic windows. Left atrium is mildly enlarged, left ventricle is normal size, mild concentric left ventricular hypertrophy, visually estimated ejection fraction 50% with no regional wall motion abnormality, diastolic parameters are inconclusive. Right Ventricle Right atrium and right ventricle mildly enlarged with normal contractility. Aortic Valve Aortic valve is thickened and calcified with mild restriction in the leaflet mobility, there is no Doppler evidence of aortic stenosis, there is mild aortic insufficiency. Mitral Valve Mitral valve has mitral annular calcification, leaflets are minimally thickened and calcified, there is increased velocities across the mitral valve, however pressure half-time is not indicated for significant mitral inflow obstruction, there is mild mitral regurgitation. Tricuspid Valve Tricuspid valve is grossly normal, there is mild tricuspid regurgitation. Pulmonic Valve Pulmonic valve is poorly visualized. Great Vessels Aortic root is normal size. Pericardium No significant pericardial effusion noted. Conclusion 1. Moderately enlarged left atrium, normal left ventricular size, mild concentric left ventricular hypertrophy, visually estimated ejection fraction 50% with no regional wall motion abnormality, diastolic parameters are inconclusive. 2. Mildly enlarged right ventricle with normal contractility. 3. Thickened and calcified aortic valve without Doppler evidence of aortic stenosis, mild aortic insufficiency. 4. Thickened and calcified mitral valve without significant mitral stenosis, there is mild mitral regurgitation. 5. No significant pericardial effusion noted. Electronically signed by : Boston Moss, 06/05/2020 20:22:20
--- NOTE | 2020-06-05 09:29 | PC.NURSE ---
CARE MANAGEMENT AWARE OF ADMISSION
--- NOTE | 2020-06-05 09:30 | PC.NURSE ---
BREAKFAST TRAY ORDERED
--- NOTE | 2020-06-05 09:58 | PC.NURSE ---
Cardiology in room with pt
--- NOTE | 2020-06-05 10:02 | PC.NURSE ---
attempted to call report, primary receiving nurse is tied up at the moment, staff states they will have her call us back
--- NOTE | 2020-06-05 10:05 | HMH.CNCARD ---
History of Present Illness Consult date: 06/05/20 Requesting physician: Venkat Carter Consult reason: atrial fibrillation, shortness of breath Chief complaint: Atrial fibrillation History of present illness: 79-year-old female presented to the emergency room with worsening shortness of breath for the past day. Patient stated last evening she was having a difficulty time sleeping due to the increased shortness of breath. Patient states when she becomes short of breath, she is unable to care for herself. Patient denies chest pain, tightness or pressure. Patient does have history of congestive heart failure and chronic of pulmonary disease. Patient complains of dizziness with position change. Patient complains of palpitations especially when she becomes anxious due to the shortness of breath. Patient states that she normally is able to walk with her walker but due to the shortness of breath she is unable to ambulate at this time. Slight swelling noted of the lower extremities. Patient states this is not new for her. Patient does have history of atrial fibrillation. monitor worker reveals atrial fibrillation with RVR with a heart rate of 108. Patient is on carvedilol and diltiazem for heart rate and rhythm control. Patient had been on Xarelto in the past but due to GI bleed, the Xarelto had been stopped. EGD had been performed in the past which revealed erosive gastritis. Patient denies any bleeding issues. Patient does have history of anemia. Upon this admission H&H were noted as low and therefore requiring 1 unit of packed red blood cells today. Anemia is being managed by PCP. Patient is a known diabetic. Diabetes is controlled and managed by PCP. Patient does have history of hypertension and hyperlipidemia. Patient does have history of coronary artery disease. Patient states she had a myocardial infarction in which she underwent heart catheterization and required stents in [place] but she is uncertain as to how many years ago that was. Last echocardiogram was performed April 2020 which revealed moderate aortic insufficiency with an EF of 55%. Troponin x1 is negative. BNP 2450 which is consistent with congestive heart failure. Creatinine 1.10 with BUN of 17. Chest x-ray revealed possible infiltrate with patchy infiltrate in the left upper lobe. Patient was started on antibiotic by PCP. CXR:IMPRESSION: Low lung volumes with bibasilar atelectasis and/or infiltrate with patchy infiltrate in the left upper lobe Discussed plan of care with Dr. Benedict. Will stop Coreg. We will start bisoprolol 10 mg p.o. for better heart rate and BP control. We will continue the diltiazem ER 240 mg daily for heart rate and rhythm control. Stressed the importance of fluid restrictions due to the congestive heart failure and edema. Pt verbalized understanding. Continue Lasix 40 mg p.o. due to congestive heart failure. Management of anemia deferred to PCP. Management of COPD deferred to PCP. Obtain echocardiogram to assess LV function and valve status. Thank you for allowing cardiology to participate in the care of this patient. [facility] History I have reviewed the patient's past medical history: Yes Medical History: Reports:: Atrial Fibrillation, Congestive Heart Failure, Chronic Obstructive Pulmonary Disease (COPD), Coronary Artery Disease, Diabetes Mellitus Type 2, Hyperlipidemia, Hypertension, Myocardial Infarction Denies:: Cancer, Diabetes Mellitus Type 1, MRSA *Have you ever received a pneumonia vaccine?: No *Have you received a flu vaccine this season?: No Other Medical History: Reports: Arthritis, Hypothyroidism Other Surgeries: Yes: Cardiac Catheterization, Coronary Stent Amputation: No - *Social History Smoking Status: Never smoker Alcohol Intake: never Substance Use Type: denies use *Occupational Status:: disabled Housing: assisted living facility Household Members: other *Travel in the last 8 weeks: None Family Hx:: Unable to ob
--- NOTE | 2020-06-05 10:19 | PC.NURSE ---
attempted to call ER for report but no answer, will try again shortly
--- NOTE | 2020-06-05 10:36 | HMH.PHAVTE ---
[facility] Pharmacy VTE Monitoring - Patient Demographics Admission date: 06/05/20 Report Date: 06/05/20 Time: 10:36 Allergies/Adverse Reactions: Patient Allergies codeine Allergy (Verified 08/14/19 22:45) methylprednisolone [From Medrol] Allergy (Verified 06/05/20 07:42) Height: 1.5 m Weight: 83.007 kg Patient Problems: Current Active Problems CHF (congestive heart failure) (Acute) Anemia (Acute) Dyspnea (Acute) Pneumonia (Acute) COPD (chronic obstructive pulmonary disease) (Acute) COPD exacerbation (Acute) Atrial fibrillation (Chronic) - VTE Risk Labs: VTE Related Lab Results Hgb 8.9 g/dL (12.2-16.2) L 06/05/20 08:01 Hct 32.0 % (37.0-47.0) L 06/05/20 08:01 Plt Count 436 K/mm3 (142-424) H 06/05/20 08:01 BUN 17 mg/dl (7-17) 06/05/20 08:01 Creatinine 1.10 mg/dl (0.52-1.04) H 06/05/20 08:01 Estimated Creat Clear 53 mL/min (50-200) 06/05/20 08:01 Clinical Trial Participant: No - Prophylaxis VTE Prophylaxis Ordered?: Yes Types of VTE Prophylaxis: TEDS Knee High
--- NOTE | 2020-06-05 10:56 | HMH.PHAINT ---
HOME MEDICATION LIST VERIFIED USING MAR FROM [facility]
--- NOTE | 2020-06-05 11:11 | PC.NURSE ---
report given to sukirn
[2020-06-05 11:22] LABS: Troponin I < 0.01 ng/ml (0.00-0.034)
--- NOTE | 2020-06-05 11:26 | PC.NURSE ---
Pt arrived to the floor at this time.
[2020-06-05 12:07] LABS: POC Glucose,Bedside 171 (70-110)
--- NOTE | 2020-06-05 13:33 | PC.NURSE ---
Blood picked up from lab late due to MD needing help with a patient
[2020-06-05 14:55] LABS: Troponin I < 0.01 ng/ml (0.00-0.034)
--- NOTE | 2020-06-05 15:42 | HMH.HP ---
*Admission Date: 06/05/20 *Chief complaint: sob *History of present illness: this pt is from local half-way who presents to the ed with sob-this is daily but has increased over the last few days -rought in by ambulance from [facility]. Her complaint is shortness of breath. She says it started tonight . However, she also states that she has not smoked in a few days because of trouble breathing. Denies fever, denies cough, denies chest pain. Denies vomiting or diarrhea. She has had some nausea. She carries a diagnosis of COPD as well as atrial fibrillation and congestive heart failure. She has previously had COVID-19. pt was admitted with copd and chf - [facility] History I have reviewed the patient's past medical history: Yes Medical History: Reports:: Arrhythmia, Atrial Fibrillation, Congestive Heart Failure, Chronic Obstructive Pulmonary Disease (COPD), Coronary Artery Disease, Diabetes Mellitus Type 2, Hyperlipidemia, Hypertension, Myocardial Infarction Denies:: Cancer, Diabetes Mellitus Type 1, MRSA *Have you ever received a pneumonia vaccine?: Yes *Have you received a flu vaccine this season?: Yes Other Medical History: Reports: Anemia, Arthritis, Hypothyroidism Other Surgeries: Yes: Cardiac Catheterization, Coronary Stent Amputation: No - *Social History Last grade of school completed: 7th or 8th Smoking Status: Current every day smoker Tobacco Type: cigarettes # Packs/Day (cigarettes): 1 Alcohol Intake: never Substance Use Type: denies use *Occupational Status:: disabled Housing: assisted living facility Household Members: other *Travel in the last 8 weeks: None Family Hx:: Unable to obtain Review of Systems - Review of Systems Review of systems:: pertinent systems reviewed and negative unless documented below - Constitutional Denies fever(s) - Eyes Denies change in vision - ENT Denies headache(s) - *Cardiovascular Reports chest pain at rest, Reports shortness of breath - *Respiratory Reports cough, Reports shortness of breath - *Gastrointestinal Denies abdominal pain - *Genitourinary Denies blood in urine - *Musculoskeletal Denies joint pain - Integumentary/Breasts Denies rash - *Neurologic Reports abnormal walking, Reports weakness, Denies seizure-like activity - Psychiatric Reports anxiety Meds Home Medications Medication Instructions Recorded Confirmed Type Insulin Glargine,Hum.rec.anlog 15 unit SQ HS 08/14/19 06/05/20 History [Lantus Insulin 100units/mL 10mL vial] Levothyroxine Sodium 25 mcg PO DAILY 08/14/19 06/05/20 History [Levothyroxine 25mcg (0.025mg) Tab] Linagliptin [Tradjenta 5mg tablet] 5 mg PO DAILY 08/14/19 06/05/20 History Losartan Potassium [Cozaar 50mg 50 mg PO DAILY 08/14/19 06/05/20 History Tablets] Acetaminophen [Acetaminophen 325mg 650 mg PO Q4HP PRN 08/15/19 06/05/20 History tab] Albuterol Sulfate [Ventolin HFA 2 puffs IH Q6HP PRN 08/15/19 06/05/20 History Inhaler] Cholecalciferol (Vitamin D3) 1,000 unit PO DAILY 08/15/19 06/05/20 History [Vitamin D3 1,000 Unit Tab] Cyanocobalamin (Vitamin B-12) 1,000 mcg PO DAILY 08/15/19 06/05/20 History [Vitamin B-12 1000mcg Tablet] Fluticasone Propionate [Flonase 1 spray NS DAILY 08/15/19 06/05/20 History Allergy Relief NS] Sennosides/Docusate Sodium [Senna 2 tab PO DAILYP PRN 01/25/20 06/05/20 History Plus 8.6-50 mg Tablet] Furosemide [Lasix 40mg tablet] 40 mg PO DAILY 04/18/20 06/05/20 History carvediloL [Carvedilol 3.125mg Tab] 3.125 mg PO BID 04/18/20 06/05/20 History dilTIAZem HCL [Cardizem ER 240mg 240 mg PO DAILY 04/18/20 06/05/20 History Capsule] Umeclidinium Brm/Vilanterol Tr 1 inh IH DAILY #60 device 06/06/20 Rx [Anoro Ellipta 62.5-25 Mcg INH] Allergies Allergy/AdvReac Type Severity Reaction Status Date / Time codeine Allergy Verified 08/14/19 22:45 methylprednisolone Allergy Verified 06/05/20 07:42 [From Medrol] Exam Vital
--- NOTE | 2020-06-05 16:00 | PC.NURSE ---
Blood transfusion complete at this time, pt tolerated well w/ no s/s of transfusion reactions. Will continue to monitor.
--- NOTE | 2020-06-05 17:10 | PC.NURSE ---
SPUTUM SAMPLE SENT TO LAB
[2020-06-05 18:24] LABS: Hematocrit 34.5 % (37.0-47.0)
[2020-06-05 18:35] LABS: Hemoglobin 10.2 g/dL (12.2-16.2)
[2020-06-05 21:26] LABS: POC Glucose,Bedside 130 (70-110)
[2020-06-06] VITALS (11 sets, daily range): BP systolic 108–153; BP diastolic 51–94; PULSE 46–113; RESP 17–20; TEMP 36.6–37.5; O2SAT 93–98; BMI 36.3; BMI 36.4
--- NOTE | 2020-06-06 04:55 | PC.NURSE ---
Patient admitted to hospital from Nursing Facility with COPD exacerbation. Patient Alert and Oriented X4, cooperative. Patient has had 2 complete bed changes r/t Urinary incontinence throughout the shift. Patient did however, ambulatate to the restroom with a walker without issue and voided. Patient resting comfortably with eyes closed. Will continue to monitor for any acute changes.
[2020-06-06 06:15] LABS: POC Glucose,Bedside 152 (70-110)
[2020-06-06 07:02] LABS: Basophils # 0.1 K/mm3 (0-0.2); Basophils % 0.9 % (0.1-2.0); Eosinophils # 0.5 K/mm3 (0.0-0.4); Eosinophils % 3.1 % (0.1-12.0); Hematocrit 35.6 % (37.0-47.0); Hemoglobin 10.5 g/dL (12.2-16.2); Lymphocytes # 2.8 K/mm3 (0.7-4.5); Lymphocytes % 19.1 % (10-50); Mean Corpuscular HGB Conc 29.6 g/dL (31.8-35.4); Mean Corpuscular Hemoglobin 21.8 pg (27.0-31.2); Mean Corpuscular Volume 73.6 fl (81-99); Mean Platelet Volume 7.8 fl (7.4-10.4); Monocytes # 0.8 K/mm3 (0.1-1.0); Monocytes % 5.2 % (1.7-9.3); Neutrophils # 10.6 K/mm3 (1.8-7.8); Neutrophils % 71.7 % (37.0-80.0); Platelet Count 415 K/mm3 (142-424); Red Blood Count 4.84 M/mm3 (4.20-5.40); Red Cell Distribution Width 21.1 % (11.5-17.5); White Blood Count 14.7 K/mm3 (4.8-10.8)
--- NOTE | 2020-06-06 07:08 | PC.NURSE ---
spoke with pt son. pt requested information of pt and was unable to provide password. pt son requested information on visiting. son was instructed at this time that visitation is from 9 to 5.
[2020-06-06 07:09] LABS: Anion Gap 11.1 mEq/L (5-15); Blood Urea Nitrogen 23 mg/dl (7-17); Calcium 8.9 mg/dl (8.4-10.2); Carbon Dioxide 26 mmol/L (22.0-30.0); Chloride 105 mmol/L (98-107); Creatinine Clearance Estimated 44 mL/min (50-200); Estimated Glomerular Filt Rate 39 ml/min (>60); GFR (African American) 48 ML/MIN (>60); Glucose 154 mg/dl (74-100); Potassium 4.1 mmoL/L (3.5-5.1)
[2020-06-06 07:24] LABS: Sodium 138 mmol/L (136-145)
--- NOTE | 2020-06-06 08:48 | HMH.ACPN2 ---
Internal Medicine - PN: Subj *Date: 06/06/20 *Time: 20:27 Interval history: 79 YOF lying in bed in no distress, she reports she feels a little better. Oxygen saturation 93% on room air. Shew received 1 unit of packed red blood cells, followed by Lasix last night. Exam Vital signs and Labs for Last 24 Hours: Temp Pulse Resp BP Pulse Ox 98.0 F 81 18 153/94 H 93 L 06/06/20 08:00 06/06/20 08:00 06/06/20 08:00 06/06/20 08:00 06/06/20 08:00 Laboratory Results - last 24 hr 06/05/20 08:01: Troponin I < 0.01 06/05/20 08:01: NT-Pro-B Natriuret Pep 2450 H 06/05/20 08:06: Chlamy pneumoniae PCR Not detected, Adenovirus (PCR) Not detected, B. pertussis DNA (PCR) Not detected, Coronavirus OC43 (PCR) Not detected, Coronavirus HKU1 (PCR) Not detected, Coronavirus 229E (PCR) Not detected, SARS-CoV-2 (PCR) Not detected, Coronavirus NL63 (PCR) Not detected, Human Metapneumovir PCR Not detected, Influenza A (H1) PCR Not detected, Influ A (H1N1/09) PCR Not detected, Influenza A (H3) PCR Not detected, Influenza Type A (PCR) Not detected, Influenza Type B (PCR) Not detected, M. pneumoniae (PCR) Not detected, Parainfluenza 1 (PCR) Not detected, Parainfluenza 2 (PCR) Not detected, Parainfluenza 3 (PCR) Not detected, Parainfluenza 4 (PCR) Not detected, RSV (PCR) Not detected, Entero/Rhino (PCR) Not detected 06/05/20 10:41: Troponin I < 0.01 06/05/20 10:41: Blood Type A Positive, Antibody Screen Negative, Crossmatch (AHG) See Detail 06/05/20 11:59: POC Glucose 171 H 06/05/20 14:05: Troponin I < 0.01 06/05/20 18:11: Hgb 10.2 L D, Hct 34.5 L 06/05/20 21:16: POC Glucose 130 H 06/06/20 06:04: POC Glucose 152 H 06/06/20 06:53: WBC 14.7 H D, RBC 4.84, Hgb 10.5 L, Hct 35.6 L, MCV 73.6 L, MCH 21.8 L, MCHC 29.6 L, RDW 21.1 H, Plt Count 415, MPV 7.8, Neut % (Auto) 71.7, Lymph % (Auto) 19.1, Leslie % (Auto) 5.2, Eos % (Auto) 3.1, Baso % (Auto) 0.9, Neut # (Auto) 10.6 H, Lymph # (Auto) 2.8, Leslie # (Auto) 0.8, Eos # (Auto) 0.5 H, Baso # (Auto) 0.1 06/06/20 06:53: Sodium 138, Potassium 4.1, Chloride 105, Carbon Dioxide 26, Anion Gap 11.1, BUN 23 H D, Creatinine 1.30 H, Estimated Creat Clear 44, Estimated GFR 39 L, Est GFR ( Amer) 48 L, Glucose 154 H, Calcium 8.9 I & O for Last 24 hours: Intake & Output 06/03/20 06/04/20 06/05/20 06/06/20 23:59 23:59 23:59 23:59 Intake Total 970 / 970 240 / 240 Balance 970 / 970 240 / 240 Weight 183 lb 2 oz 180 lb 1.6 oz Microbiology Reports for the Last 24 Hours: Microbiology 06/05/20 17:02 Sputum - Expectorated Sputum Gram Stain - Final - Constitutional no acute distress - *Routine HEENT Exam Head: Present: normocephalic Eye: Present: EOMI ENT: Present: mucous membranes moist - *Routine Neck Exam Present: trachea midline. Absent: tracheal deviation - *Routine Respiratory Exam Present: rales - *Routine Cardiovascular Exam Present: irregularly irregular - *Routine Abdominal Exam Present: soft, normoactive bowel sounds. Absent: tenderness, firm - *Routine Extremities Exam Present: edema, full ROM, pulses intact. Absent: cyanosis, calf tenderness - *Routine Skin Exam Present: intact, dry, warm. Absent: cyanosis, erythema - *Routine Neurological Exam Present: alert. Absent: motor deficit, pronator drift - Routine Psychiatric Exam Present: normal affect, normal thought process. Absent: auditory hallucinations, visual hallucinations Assessment and Plan (1) Anemia Status: Acute Qualifiers: Anemia type: unspecified type Qualified Code(s): D64.9 - Anemia, unspecified Category: Medical Code(s): D64.9 - Anemia, unspecified (2) CHF (congestive heart failure) Status: Acute Qualifiers: Heart failure type: unspecified Heart failure chronicity: acute on chronic Qualified Code(s): I50.9 - Heart failure, unspecified Category: Medical Code(s): I50.9 - Heart failure, unspecified (3) COPD (chronic obstructive pulmonary disease) Status: Acute
--- NOTE | 2020-06-06 08:54 | HMH.PULMCON ---
*Admission Date: 06/05/20 *Reason for consult:: COPD exacerbation *History of present illness: 79-year-old female history of atrial fibrillation, congestive heart failure, CAD, diabetes mellitus, hypertension, dyslipidemia, prior NV status post cardiac stenting, COPD presented with worsening shortness of breath and was initiated on treatment for pneumonia and congestive heart failure and pulmonary was called for further management. [facility] History Medical History: Reports:: Arrhythmia, Atrial Fibrillation, Congestive Heart Failure, Chronic Obstructive Pulmonary Disease (COPD), Coronary Artery Disease, Diabetes Mellitus Type 2, Hyperlipidemia, Hypertension, Myocardial Infarction Denies:: Cancer, Diabetes Mellitus Type 1, MRSA *Have you ever received a pneumonia vaccine?: Yes *Have you received a flu vaccine this season?: Yes Other Medical History: Reports: Anemia, Arthritis, Hypothyroidism Other Surgeries: Yes: Cardiac Catheterization, Coronary Stent Amputation: No - *Social History Last grade of school completed: 7th or 8th Smoking Status: Current every day smoker Tobacco Type: cigarettes # Packs/Day (cigarettes): 1 Alcohol Intake: never Substance Use Type: denies use *Occupational Status:: disabled Housing: assisted living facility Household Members: other *Travel in the last 8 weeks: None Family Hx:: Unable to obtain ROS - Cons Reports body ache(s), Reports chills, Denies anorexia - Card Reports shortness of breath with activity, Reports leg swelling - Resp Respiratory: Reports shortness of breath, Reports change in phlegm color, Reports chest congestion, Reports dyspnea, Denies coughing up blood, Denies pain on inspiration, Reports cough with sputum production, Denies pain with breathing - GI Gastrointestingal: Reports: system reviewed and no additional complaints, except as docu - [place] Musculoskeletal: Reports joint pain Meds Home Medications Medication Instructions Recorded Confirmed Type Insulin Glargine,Hum.rec.anlog 15 unit SQ HS 08/14/19 06/05/20 History [Lantus Insulin 100units/mL 10mL vial] Levothyroxine Sodium 25 mcg PO DAILY 08/14/19 06/05/20 History [Levothyroxine 25mcg (0.025mg) Tab] Linagliptin [Tradjenta 5mg tablet] 5 mg PO DAILY 08/14/19 06/05/20 History Losartan Potassium [Cozaar 50mg 50 mg PO DAILY 08/14/19 06/05/20 History Tablets] Acetaminophen [Acetaminophen 325mg 650 mg PO Q4HP PRN 08/15/19 06/05/20 History tab] Albuterol Sulfate [Ventolin HFA 2 puffs IH Q6HP PRN 08/15/19 06/05/20 History Inhaler] Cholecalciferol (Vitamin D3) 1,000 unit PO DAILY 08/15/19 06/05/20 History [Vitamin D3 1,000 Unit Tab] Cyanocobalamin (Vitamin B-12) 1,000 mcg PO DAILY 08/15/19 06/05/20 History [Vitamin B-12 1000mcg Tablet] Fluticasone Propionate [Flonase 1 spray NS DAILY 08/15/19 06/05/20 History Allergy Relief NS] Sennosides/Docusate Sodium [Senna 2 tab PO DAILYP PRN 01/25/20 06/05/20 History Plus 8.6-50 mg Tablet] Furosemide [Lasix 40mg tablet] 40 mg PO DAILY 04/18/20 06/05/20 History carvediloL [Carvedilol 3.125mg Tab] 3.125 mg PO BID 04/18/20 06/05/20 History dilTIAZem HCL [Cardizem ER 240mg 240 mg PO DAILY 04/18/20 06/05/20 History Capsule] Umeclidinium Brm/Vilanterol Tr 1 inh IH DAILY #60 device 06/06/20 Rx [Anoro Ellipta 62.5-25 Mcg INH] Allergies Allergy/AdvReac Type Severity Reaction Status Date / Time codeine Allergy Verified 08/14/19 22:45 methylprednisolone Allergy Verified 06/05/20 07:42 [From Medrol] Exam - Constitutional Constitutional:: Present: no acute distress, comfortable - HENMT Exam HENMT: Present: atraumatic - Eye Exam Eyes:: Present: eyelids normal - Neck Exam Neck:: Present: thyroid normal - Respiratory Exam Respiratory:: Present: able to speak in complete sentences, bibailar crackels heard, no respiratory distress, normal respiratory effort. Absent: wheezing - Cardiovascular Exam Cardiac:: Pre
--- NOTE | 2020-06-06 09:32 | SW/DCPLANNER ---
Addendum entered by Irene Blair 06/08/20 09:26: This patient will discharge back to [facility] today. I have notified Trista from [facility] and she has stated no further COVID testing is needed for this patient. I will set up [employer] once patient is ready for discharge. Original Note: This patient currently resides at [facility]. Per MD patient could potentially discharge back later today or tomorrow. I have informed Brant/Trista with [facility]. PT/OT evaluation has been ordered for today.
--- NOTE | 2020-06-06 09:53 | HMH.PTEV ---
Physical Therapy Evaluation Rehab PT IP Evaluation Start: 06/06/20 08:52 Freq: ONCE Status: Active Protocol: Document 06/06/20 09:49 ALEJANDRA (Rec: 06/06/20 09:53 ALEJANDRA [id number]) Subjective/History History History This is the initial IP PT evaluation for Cece Chambers. Pt is an 79 y/o female admitted to [facility] for c/o SOA from the ED. Pt is a resident of local [facility] who started c/o SOA w/ activity. Subjective Subjective Pt reports she is feeling better than I was - Rehab PT IP Eval Objective Appearance Patient Behavior Appropriate,Cooperative Patient Orientation Person,Place,Time,Situation Difficulty following instructions none Speech Pattern Appropriate Ambulation Patient Able to Ambulate Yes Ambulation Observation IP General Gait Pattern Observation No Deviations/Normal Ambulation Distance (feet) 30 Ambulation Assistive Device Standard Walker Ambulation Ability Supervision/Stand by Balance Ability to Arise Able, uses arms to help Sitting Balance Steady, safe Standing Balance Steady, wide stance Dynamic Sitting Balance Ability Good Dynamic Standing Balance Ability Fair Transfers Bed Transfer Ability Independent Chair Transfer Ability Independent Sit to Stand Bed Transfer Ability Supervision/Stand by Sit to Stand Chair Transfer Ability Supervision/Stand by Rehab PT IP prob,goals,plan Problems Date of Evaluation: 06/06/20 PT IP Problems Gait,Self care,Safety Rehab Potential Rehab Potential Fair Equipment Needs Assistive Devices Standard Walker,Rolling / Wheeled Walker Plan PT Intervention Plan Transfers,Gait,Therapeutic Exercise PT Plan Frequency BID Duration LOS Discharge Goals Bed Transfer Ability Independent Sit to Stand Chair Transfer Ability Independent Ambulation Assistive Device Standard Walker,Rolling Walker Ambulation Distance (feet) 50 Discharge Plan PT Discharge Plan Pt safe to return to LTC facility once medically stable and dc'd from [facility] G -code Required Yes Eval Complexity Eval Charge Codes 61694 - Low Complexity G Codes PT Current Status Mobility PT Current Status Modifier CI-At least 1% but less than 20% impaired, limited or
--- NOTE | 2020-06-06 10:27 | HMH.PNCARD ---
Subjective Date: 06/06/20 Time: 09:00 Principal diagnosis: Shortness of breath Interval history: 79-year-old female presented to the emergency room with worsening shortness of breath for the past day Patient stated last evening she was having a difficulty time sleeping due to the increased shortness of breath. Patient states when she becomes short of breath, she is unable to care for herself. Patient denies chest pain, tightness or pressure. Patient does have history of congestive heart failure and chronic of pulmonary disease. Patient complains of dizziness with position change. Patient complains of palpitations especially when she becomes anxious due to the shortness of breath. Patient states that she normally is able to walk with her walker but due to the shortness of breath she is unable to ambulate at this time. Slight swelling noted of the lower extremities. Patient states this is not new for her. Patient does have history of atrial fibrillation. monitoring engineer reveals atrial fibrillation with RVR with a heart rate of 108. Patient had been on carvedilol to manage heart rate. Carvedilol was stopped yesterday and patient was placed on bisoprolol 10 mg for better BP and heart rate control. monitoring engineer reveals atrial fibrillation with a controlled heart rate of 86 bpm. Patient had been on Xarelto in the past but due to GI bleed, the Xarelto had been stopped. EGD had been performed in the past which revealed erosive gastritis. Patient denies any bleeding issues. Patient does have history of anemia. Upon this admission H&H were noted as low and therefore requiring 1 unit of packed red blood cells yesterday. Anemia is being managed by PCP. Patient is a known diabetic. Diabetes is controlled and managed by PCP. Patient does have history of hypertension and hyperlipidemia. Patient does have history of coronary artery disease. Patient states she had a myocardial infarction in which she underwent heart catheterization and required stents in [place] but she is uncertain as to how many years ago that was. Echocardiogram was performed, which revealed EF 55% with no regional wall abnormality, mild aortic insufficiency and mild mitral regurgitation. Troponin x1 is negative. BNP 2450 which is consistent with congestive heart failure. Patient is currently on Lasix 40 mg daily due to congestive heart failure. Patient continues to diurese. Chest x-ray revealed possible infiltrate with patchy infiltrate in the left upper lobe. Patient was started on antibiotic by PCP. Echo:Conclusion 1. Moderately enlarged left atrium, normal left ventricular size, mild concentric left ventricular hypertrophy, visually estimated ejection fraction 50% with no regional wall motion abnormality, diastolic parameters are inconclusive. 2. Mildly enlarged right ventricle with normal contractility. 3. Thickened and calcified aortic valve without Doppler evidence of aortic stenosis, mild aortic insufficiency. 4. Thickened and calcified mitral valve without significant mitral stenosis, there is mild mitral regurgitation. 5. No significant pericardial effusion noted. Discussed plan of care with Dr. Benedict. Patient continues to do well. Patient does continue to have slight shortness of breath. This is possibly due to the patchy infiltrate of the left upper lobe. Patient is currently receiving antibiotics per PCP and group program manager. We will continue to diurese patient with Lasix 40 mg daily. Heart rate and blood pressure are controlled. Please notify cardiology of any changes in patient status. Thank you for allowing cardiology to participate in the care of this patient. Exam Vital signs and Labs for Last 24 Hours: Temp Pulse Resp BP Pulse Ox 98.0 F 81 18 153/94 H 93 L 06/06/20 08:00 06/06/20 08:00 06/06/20 08:00 06/06/20 08:00 06/06/20 08:00 Laboratory Results - last 24 hr 06/05/20 10:41: Troponin I < 0.01 06/05/20 10:41: Graham
--- NOTE | 2020-06-06 10:44 | HMH.OTEV ---
OT Inpatient Evaluation Rehab OT IP Evaluation Start: 06/06/20 08:53 Freq: ONCE Status: Complete Protocol: Document 06/06/20 10:[address] [facility] (Rec: 06/06/20 10:[address] [facility] [id number]) Rehab OT IP Assessment Subjective History Pt oriented x 3 on arrival. Pt agreeable to engage in therapy evaluation. Pt was admitted via ED on 06/05/20 due to COPD exacerbation. Pt has a past medical history of A- fib, CHF, COPD, CAD, DM type 2 , Hyperlipidemia, HTN, and NM. Prior to admission pt lived at [facility]. Pt claims she was independent with all ADLs, but dependent upon staff to complete all IADLs. Pt did use a walker at all times prior to hospitalization. Subjective It's just hard to breathe. Pt resting in chair on arrival . Pt completed lower body dressing by doffing and donning socks with SBA. Pt then stood from chair with SBA and engaged in functional mobility task of ~5 feet with rolling walker and SBA. Pt returned to chair with SBA and rolling walker. Pt sat down in chair with SBA. Pt was left with call villa and all other needs in reach. Objective Patient Orientation Person,Place,Birthday Upper Extremity Gross ROM WFL Transfer Training Sit/Stand Transfer Assist Level Supervision/Stand by Chair Transfer Assistive Devices Rolling Walker Lower Body Dressing Ability Standby Assistance Rehab OT IP prob,goals,plan Problems Date of Evaluation: 06/06/20 OT IP Problems Bed Mobility,Transfers,Gait, Balance,Self care,Safety Rehab Potential Rehab Potential Good Equipment Needs Assistive Devices Rolling / Wheeled Walker Plan OT intervention Plan Bed Mobility,Transfers,Gait, Balance,Self care,Safety, Therapeutic Exercise OT Plan Frequency BID Duration LOS Discharge Goals Bed Mobility Ability Standby Assistance Sit to Stand Chair Transfer
[2020-06-06 11:24] LABS: POC Glucose,Bedside 132 (70-110)
--- NOTE | 2020-06-06 13:09 | PC.NURSE ---
Pt is alert and oriented x4. Lungs are clear, she remains on RA. She has had multiple complaints of SOA. O2 sats have been monitored and have remained in the upper 90's. Respirations are even and non-labored. She has ambulated with a rolling walker and standby assist. She tolerates this well. She was up to the chair for approx 3 hours with no distress. Appetite is good. She has requested multiple snacks between meals. Family has been to visit which made her very happy. Will continue to monitor.
[2020-06-06 13:25] LABS: Thyroid Stimulating Hormone 3.41 uIU/mL (0.465-4.68)
[2020-06-06 17:21] LABS: POC Glucose,Bedside 128 (70-110)
[2020-06-06 21:07] LABS: POC Glucose,Bedside 200 (70-110)
[2020-06-07] VITALS (10 sets, daily range): BP systolic 121–142; BP diastolic 43–62; PULSE 60–84; RESP 16–18; TEMP 36.6–37; O2SAT 93–96; BMI 36.3
--- NOTE | 2020-06-07 04:22 | PC.NURSE ---
Pt had no c/o pain this shift. Patient has slept most of the shift. VSS. Possible d/c to previous facility today. Will continue to monitor for any acute changes.
[2020-06-07 05:59] LABS: POC Glucose,Bedside 125 (70-110)
--- NOTE | 2020-06-07 09:49 | HMH.PULMPN ---
Internal Medicine - PN: Subj *Date: 06/07/20 *Time: 09:49 Interval history: No acute respiratory vents overnight. Patient continued to remain on room air. Exam - Constitutional Constitutional:: Present: no acute distress - HENMT Exam HENMT: Present: atraumatic - Eye Exam Eyes:: Present: eyelids normal - Neck Exam Neck:: Present: thyroid normal - Respiratory Exam Respiratory:: Present: able to speak in complete sentences, crackles Comments: Bibasilar crackles along with decreased breath sounds in the right lower lung price noted - Cardiovascular Exam Cardiac:: Present: S1, S2 - GI Exam GI:: Present: soft - Skin Exam Skin: Present: warm - Neurological Exam Neurological: Present: alert, awake - Extremities Exam Extremities: Present: no cyanosis, no clubbing, edema - Psychiatric Exam Psychiatric: Present: normal affect Assessment and Plan (1) Anemia Status: Acute Qualifiers: Anemia type: unspecified type Qualified Code(s): D64.9 - Anemia, unspecified Category: Medical Code(s): D64.9 - Anemia, unspecified (2) CHF (congestive heart failure) Status: Acute Qualifiers: Heart failure type: unspecified Heart failure chronicity: acute on chronic Qualified Code(s): I50.9 - Heart failure, unspecified Category: Medical Code(s): I50.9 - Heart failure, unspecified (3) COPD (chronic obstructive pulmonary disease) Status: Acute Category: Medical Code(s): J44.9 - Chronic obstructive pulmonary disease, unspecified (4) Dyspnea Status: Acute Qualifiers: Dyspnea type: shortness of breath Qualified Code(s): R06.02 - Shortness of breath Category: Medical Code(s): R06.00 - Dyspnea, unspecified (5) Atrial fibrillation Status: Chronic Qualifiers: Atrial fibrillation type: longstanding persistent Qualified Code(s): I48.11 - Longstanding persistent atrial fibrillation Category: Medical Code(s): I48.91 - Unspecified atrial fibrillation (6) Aortic valve insufficiency Status: Acute Qualifiers: Cardiac valve disease etiology: nonrheumatic Qualified Code(s): I35.1 - Nonrheumatic aortic (valve) insufficiency Category: Medical Code(s): I35.1 - Nonrheumatic aortic (valve) insufficiency (7) Blood loss anemia Status: Acute Category: Medical Code(s): D50.0 - Iron deficiency anemia secondary to blood loss (chronic) (8) CAD (coronary artery disease) Status: Acute Category: Medical Code(s): I25.10 - Atherosclerotic heart disease of [place] coronary artery without angina pectoris (9) Diabetes mellitus, insulin dependent (IDDM), controlled Status: Acute Category: Medical - Assessment and plan all Dx Assessment and Plan for all problems:: #COPD exacerbation 79-year-old smoker greater than [id number] currently smoking presented hospital worsening respiratory failure likely from COPD exacerbation, pneumonia and heart failure exacerbation. Low-grade fevers with a T-max of 98.9. Evidence of leukocytosis. Dynamically stable. Remained on room air since admission. Sputum showing less than 10 epithelial cells and less than 10 WBC, showing gram-positive bacilli, cocci in clusters in pairs and gram-negative rods. Chest x-ray reviewed, showing bilateral effusions, evidence of vascular congestion and possible right lower lobe pulmonary infiltrate. BNP elevated on admission. Patient also noted to be in A. fib RVR on admission. Patient was initiated on antibiotics include levofloxacin and inhalers. Cardiology following patient receiving diuretics. Patient continued to remain on room air since admission. Auscultation clear with no wheezing. Slightly decreased breath sounds in the right lower lung base along with bibasilar crackles Plan: -Incentive spirometry -Continue levofloxacin for a total of 5 days. Will hold off on initiating steroids -DuoNebs every 6 scheduled, consider discharging the patient on LABA LAMA combinat
[2020-06-07 11:05] LABS: Chloride 107 mmol/L (98-107); Potassium 4.5 mmoL/L (3.5-5.1); Sodium 138 mmol/L (136-145)
[2020-06-07 11:07] LABS: Basophils # 0.1 K/mm3 (0-0.2); Basophils % 0.9 % (0.1-2.0); Eosinophils # 0.3 K/mm3 (0.0-0.4); Eosinophils % 2.4 % (0.1-12.0); Hematocrit 33.8 % (37.0-47.0); Hemoglobin 9.9 g/dL (12.2-16.2); Lymphocytes # 1.8 K/mm3 (0.7-4.5); Lymphocytes % 16.6 % (10-50); Mean Corpuscular HGB Conc 29.2 g/dL (31.8-35.4); Mean Corpuscular Hemoglobin 21.6 pg (27.0-31.2); Mean Corpuscular Volume 74.1 fl (81-99); Mean Platelet Volume 7.5 fl (7.4-10.4); Monocytes # 0.6 K/mm3 (0.1-1.0); Monocytes % 5.5 % (1.7-9.3); Neutrophils # 8.2 K/mm3 (1.8-7.8); Neutrophils % 74.6 % (37.0-80.0); Platelet Count 341 K/mm3 (142-424); Red Blood Count 4.57 M/mm3 (4.20-5.40); Red Cell Distribution Width 21.4 % (11.5-17.5)
[2020-06-07 11:08] LABS: Anion Gap 7.5 mEq/L (5-15); Blood Urea Nitrogen 26 mg/dl (7-17); Calcium 8.9 mg/dl (8.4-10.2); Carbon Dioxide 28 mmol/L (22.0-30.0); Creatinine Clearance Estimated 44 mL/min (50-200); Estimated Glomerular Filt Rate 39 ml/min (>60); GFR (African American) 48 ML/MIN (>60); Glucose 196 mg/dl (74-100)
--- NOTE | 2020-06-07 11:29 | HMH.PNCARD ---
Subjective Date: 06/07/20 Time: 11:25 Principal diagnosis: Shortness of breath Interval history: This is an 79-year-old white female who presented to the emergency department with complaints of worsening shortness of breath and lower extremity edema. The patient was found to be in atrial fibrillation with RVR. She is now rate controlled in atrial fibrillation. She denies any chest pain or pressure this morning. She states that she still is feeling really short of breath. The patient states that she is unable to lie flat because of her shortness of breath. She states that her shortness of breath continues to worsen and is worse today than when she came into the hospital. She states her lower extremity edema has improved and she has none on exam this morning. She just states that she does not feel well and states that she does not know she is going to make it. She denies any fever, chills, nausea, vomiting or diarrhea. Exam Vital signs and Labs for Last 24 Hours: Temp Pulse Resp BP Pulse Ox 98.5 F 72 16 134/43 L 96 06/07/20 08:00 06/07/20 08:00 06/07/20 08:00 06/07/20 08:00 06/07/20 08:00 Laboratory Results - last 24 hr 06/06/20 06:53: TSH 3.41 06/06/20 17:08: POC Glucose 128 H 06/06/20 20:29: POC Glucose 200 H 06/07/20 05:50: POC Glucose 125 H 06/07/20 10:36: WBC 11.0 H D, RBC 4.57, Hgb 9.9 L, Hct 33.8 L, MCV 74.1 L, MCH 21.6 L, MCHC 29.2 L, RDW 21.4 H, Plt Count 341, MPV 7.5, Neut % (Auto) 74.6, Lymph % (Auto) 16.6, [place] % (Auto) 5.5, Eos % (Auto) 2.4, Baso % (Auto) 0.9, Neut # (Auto) 8.2 H, Lymph # (Auto) 1.8, [place] # (Auto) 0.6, Eos # (Auto) 0.3, Baso # (Auto) 0.1 06/07/20 10:36: Sodium 138, Potassium 4.5, Chloride 107, Carbon Dioxide 28, Anion Gap 7.5, BUN 26 H, Creatinine 1.30 H, Estimated Creat Clear 44, Estimated GFR 39 L, Est GFR ( Amer) 48 L, Glucose 196 H, Calcium 8.9 I & O for Last 24 hours: Intake & Output 06/04/20 06/05/20 06/06/20 06/07/20 23:59 23:59 23:59 23:59 Intake Total 970 / 970 990 / 1110 1130 / 1130 Balance 970 / 970 990 / 1110 1130 / 1130 Weight 183 lb 2 oz 180 lb 12.465 oz 180 lb 4 oz Microbiology Reports for the Last 24 Hours: Microbiology 06/05/20 17:02 Sputum - Expectorated Sputum Gram Stain - Final 06/05/20 17:02 Sputum - Expectorated Sputum Sputum Culture - Preliminary 06/05/20 07:41 Blood Blood Culture - Preliminary NO GROWTH AFTER 48 HOURS 06/05/20 07:41 Blood Blood Culture - Preliminary NO GROWTH AFTER 48 HOURS Narrative: Telemetry strip is atrial fibrillation with a rate of 69. - Constitutional no acute distress, obese - *Routine HEENT Exam Head: Present: normocephalic, atraumatic Eye: Present: EOMI, PERRL ENT: Present: mucous membranes moist - *Routine Neck Exam Present: supple, full ROM, normal carotid upstroke. Absent: JVD, carotid bruit, lymphadenopathy - *Routine Respiratory Exam Present: CTA bilaterally - *Routine Cardiovascular Exam Present: Normal S1, Normal S2, irregularly irregular - *Routine Abdominal Exam Present: soft, normoactive bowel sounds. Absent: tenderness - *Routine Extremities Exam Present: full ROM, pulses intact, normal capillary refill. Absent: cyanosis, clubbing, edema - *Routine Skin Exam Present: intact, warm. Absent: erythema, rash - *Routine Neurological Exam Present: alert, oriented X3, CN II-XII intact. Absent: sensory deficit, motor deficit Progress Note: A&P (1) CHF (congestive heart failure) Status: Acute (2) Anemia Status: Acute (3) COPD (chronic obstructive pulmonary disease) Status: Acute (4) Dyspnea Status: Acute (5) Atrial fibrillation Status: Chronic (6) Aortic valve insufficiency Status: Acute (7) Blood loss anemia Status: Acute (8) CAD (coronary artery disease) Status: Acute (9) Diabetes mellitus, insulin dependent (IDDM), controlled Status: Acute Assessment and P
[2020-06-07 11:32] LABS: POC Glucose,Bedside 226 (70-110)
--- NOTE | 2020-06-07 11:59 | HMH.ACPN2 ---
Internal Medicine - PN: Subj *Date: 06/07/20 *Time: 08:20 Interval history: pt sitting up in chair states no c/o at this time Exam Vital signs and Labs for Last 24 Hours: Temp Pulse Resp BP Pulse Ox 98.5 F 72 16 134/43 L 96 06/07/20 08:00 06/07/20 08:00 06/07/20 08:00 06/07/20 08:00 06/07/20 08:00 Laboratory Results - last 24 hr 06/06/20 06:53: TSH 3.41 06/06/20 17:08: POC Glucose 128 H 06/06/20 20:29: POC Glucose 200 H 06/07/20 05:50: POC Glucose 125 H 06/07/20 10:36: WBC 11.0 H D, RBC 4.57, Hgb 9.9 L, Hct 33.8 L, MCV 74.1 L, MCH 21.6 L, MCHC 29.2 L, RDW 21.4 H, Plt Count 341, MPV 7.5, Neut % (Auto) 74.6, Lymph % (Auto) 16.6, [place] % (Auto) 5.5, Eos % (Auto) 2.4, Baso % (Auto) 0.9, Neut # (Auto) 8.2 H, Lymph # (Auto) 1.8, [place] # (Auto) 0.6, Eos # (Auto) 0.3, Baso # (Auto) 0.1 06/07/20 10:36: Sodium 138, Potassium 4.5, Chloride 107, Carbon Dioxide 28, Anion Gap 7.5, BUN 26 H, Creatinine 1.30 H, Estimated Creat Clear 44, Estimated GFR 39 L, Est GFR ( Amer) 48 L, Glucose 196 H, Calcium 8.9 06/07/20 11:09: POC Glucose 226 H I & O for Last 24 hours: Intake & Output 06/04/20 06/05/20 06/06/20 06/07/20 11:59 11:59 11:59 11:59 Intake Total 1210 / 1210 1880 / 1880 Output Total 250 / 250 Balance 1210 / 1210 1630 / 1630 Weight 183 lb 2 oz 180 lb 1.6 oz 180 lb 4 oz Microbiology Reports for the Last 24 Hours: Microbiology 06/05/20 17:02 Sputum - Expectorated Sputum Gram Stain - Final 06/05/20 17:02 Sputum - Expectorated Sputum Sputum Culture - Preliminary 06/05/20 07:41 Blood Blood Culture - Preliminary NO GROWTH AFTER 48 HOURS 06/05/20 07:41 Blood Blood Culture - Preliminary NO GROWTH AFTER 48 HOURS - Constitutional no acute distress, obese - *Routine HEENT Exam Head: Present: normocephalic Eye: Present: PERRL ENT: Present: mucous membranes moist - *Routine Neck Exam Present: supple. Absent: lymphadenopathy - *Routine Respiratory Exam Present: crackles - *Routine Cardiovascular Exam Present: RRR - *Routine Abdominal Exam Present: soft, normoactive bowel sounds. Absent: tenderness - *Routine Extremities Exam Present: normal capillary refill. Absent: cyanosis, clubbing, edema - *Routine Skin Exam Present: warm. Absent: rash - *Routine Neurological Exam Present: alert - Routine Psychiatric Exam Present: normal affect Assessment and Plan (1) CHF (congestive heart failure) Status: Acute Qualifiers: Heart failure type: unspecified Heart failure chronicity: acute on chronic Qualified Code(s): I50.9 - Heart failure, unspecified Category: Medical Code(s): I50.9 - Heart failure, unspecified (2) Anemia Status: Acute Qualifiers: Anemia type: unspecified type Qualified Code(s): D64.9 - Anemia, unspecified Category: Medical Code(s): D64.9 - Anemia, unspecified (3) COPD (chronic obstructive pulmonary disease) Status: Acute Category: Medical Code(s): J44.9 - Chronic obstructive pulmonary disease, unspecified (4) Dyspnea Status: Acute Qualifiers: Dyspnea type: shortness of breath Qualified Code(s): R06.02 - Shortness of breath Category: Medical Code(s): R06.00 - Dyspnea, unspecified (5) Atrial fibrillation Status: Chronic Qualifiers: Atrial fibrillation type: longstanding persistent Qualified Code(s): I48.11 - Longstanding persistent atrial fibrillation Category: Medical Code(s): I48.91 - Unspecified atrial fibrillation (6) Aortic valve insufficiency Status: Acute Qualifiers: Cardiac valve disease etiology: nonrheumatic Qualified Code(s): I35.1 - Nonrheumatic aortic (valve) insufficiency Category: Medical Code(s): I35.1 - Nonrheumatic aortic (valve) insufficiency (7) Blood loss anemia Status: Acute Category: Medical Code(s): D50.0 - Iron deficiency anemia secondary to blood loss (chronic)
[2020-06-07 17:17] LABS: POC Glucose,Bedside 116 (70-110)
--- NOTE | 2020-06-07 17:32 | PC.NURSE ---
Has sat up in chair intermittently. Remains on room air. Reports increased SOA w/ activity. IS encouraged throughout shift, will need reinforcement. Cough noted, non-productive, dry. IV lasix given, pt did have period of stress incontinence so monitoring of output has been difficult. She is currently sitting up in chair, tolerating well. No complaints voiced. Call allen w/in reach.
[2020-06-07 20:28] LABS: POC Glucose,Bedside 178 (70-110)
[2020-06-08] VITALS: BP 126/46; PULSE 80; RESP 16; TEMP 36.9; O2SAT 95
[2020-06-08 04:00] VITALS: BP 154/81; PULSE 68; PULSE 90; RESP 18; TEMP 36.8; O2SAT 93
[2020-06-08 05:00] VITALS: BMI 36.3
--- NOTE | 2020-06-08 05:15 | PC.NURSE ---
Pt given IV Lasix yesterday for diuresis. Patient resting comfortably with eyes closed, in no acute distress. Will continue to monitor for any acute changes. D/C [facility]
[2020-06-08 05:49] LABS: POC Glucose,Bedside 140 (70-110)
[2020-06-08 06:35] VITALS: PULSE 63; PULSE 75; O2SAT 93
[2020-06-08 06:59] LABS: Basophils # 0.1 K/mm3 (0-0.2); Basophils % 0.9 % (0.1-2.0); Eosinophils # 0.5 K/mm3 (0.0-0.4); Eosinophils % 3.8 % (0.1-12.0); Hematocrit 33.4 % (37.0-47.0); Hemoglobin 9.8 g/dL (12.2-16.2); Lymphocytes # 2.6 K/mm3 (0.7-4.5); Lymphocytes % 21.9 % (10-50); Mean Corpuscular HGB Conc 29.3 g/dL (31.8-35.4); Mean Corpuscular Hemoglobin 21.2 pg (27.0-31.2); Mean Corpuscular Volume 72.4 fl (81-99); Mean Platelet Volume 7.3 fl (7.4-10.4); Monocytes # 0.8 K/mm3 (0.1-1.0); Monocytes % 6.6 % (1.7-9.3); Neutrophils % 66.8 % (37.0-80.0); Platelet Count 315 K/mm3 (142-424); Red Cell Distribution Width 21.4 % (11.5-17.5)
[2020-06-08 07:07] LABS: Anion Gap 11.2 mEq/L (5-15); Blood Urea Nitrogen 30 mg/dl (7-17); Calcium 9.1 mg/dl (8.4-10.2); Carbon Dioxide 27 mmol/L (22.0-30.0); Chloride 103 mmol/L (98-107); Chol/HDL Ratio 4.5 (1-3.5); Cholesterol 170 mg/dl (140-200); Creatinine Clearance Estimated 38 mL/min (50-200); Estimated Glomerular Filt Rate 33 ml/min (>60); GFR (African American) 40 ML/MIN (>60); Glucose 133 mg/dl (74-100); HDL Cholesterol 38 mg/dl (40-60); Potassium 4.2 mmoL/L (3.5-5.1); Sodium 137 mmol/L (136-145); Triglycerides 99 mg/dl (30-150); VLDL Cholesterol 20 mg/dL (0-40)
[2020-06-08 07:17] LABS: Direct LDL Cholesterol 98.04 mg/dL (100-129)
[2020-06-08 08:00] VITALS: BP 106/63; PULSE 79; PULSE 80; RESP 19; TEMP 36.9; O2SAT 96
--- NOTE | 2020-06-08 08:53 | HMH.PULMPN ---
Internal Medicine - PN: Subj *Date: 06/08/20 *Time: 09:54 Interval history: No acute respiratory vents overnight. Patient continued to remain on room air. Exam - Constitutional Constitutional:: Present: no acute distress, comfortable - HENMT Exam HENMT: Present: atraumatic - Eye Exam Eyes:: Present: eyelids normal - Neck Exam Neck:: Present: normal visual inspection, thyroid normal - Respiratory Exam Respiratory:: Present: able to speak in complete sentences, bibailar crackels heard, no respiratory distress, normal respiratory effort - Cardiovascular Exam Cardiac:: Present: S1, S2 - GI Exam GI:: Present: soft - Skin Exam Skin: Present: warm, no rash - Neurological Exam Neurological: Present: alert, awake, normal cognition - Extremities Exam Extremities: Present: no cyanosis, no clubbing, edema - Psychiatric Exam Psychiatric: Present: normal affect Assessment and Plan (1) CHF (congestive heart failure) Status: Acute Qualifiers: Heart failure type: unspecified Heart failure chronicity: acute on chronic Qualified Code(s): I50.9 - Heart failure, unspecified Category: Medical Code(s): I50.9 - Heart failure, unspecified (2) Anemia Status: Acute Qualifiers: Anemia type: unspecified type Qualified Code(s): D64.9 - Anemia, unspecified Category: Medical Code(s): D64.9 - Anemia, unspecified (3) COPD (chronic obstructive pulmonary disease) Status: Acute Category: Medical Code(s): J44.9 - Chronic obstructive pulmonary disease, unspecified (4) Dyspnea Status: Acute Qualifiers: Dyspnea type: shortness of breath Qualified Code(s): R06.02 - Shortness of breath Category: Medical Code(s): R06.00 - Dyspnea, unspecified (5) Atrial fibrillation Status: Chronic Qualifiers: Atrial fibrillation type: longstanding persistent Qualified Code(s): I48.11 - Longstanding persistent atrial fibrillation Category: Medical Code(s): I48.91 - Unspecified atrial fibrillation (6) Aortic valve insufficiency Status: Acute Qualifiers: Cardiac valve disease etiology: nonrheumatic Qualified Code(s): I35.1 - Nonrheumatic aortic (valve) insufficiency Category: Medical Code(s): I35.1 - Nonrheumatic aortic (valve) insufficiency (7) Blood loss anemia Status: Acute Category: Medical Code(s): D50.0 - Iron deficiency anemia secondary to blood loss (chronic) (8) CAD (coronary artery disease) Status: Acute Category: Medical Code(s): I25.10 - Atherosclerotic heart disease of [place] coronary artery without angina pectoris (9) Diabetes mellitus, insulin dependent (IDDM), controlled Status: Acute Category: Medical - Assessment and plan all Dx Assessment and Plan for all problems:: #COPD exacerbation 79-year-old smoker greater than [address] currently smoking presented hospital worsening respiratory failure likely from COPD exacerbation, pneumonia and heart failure exacerbation. On admission noted to have low-grade fevers with a T-max of 98.9. Evidence of leukocytosis. Hemodynamically stable. Remained on room air since admission. Sputum showing less than 10 epithelial cells and less than 10 WBC, showing gram-positive bacilli, cocci in clusters in pairs and gram-negative rods. Chest x-ray reviewed, showing bilateral effusions, evidence of vascular congestion and possible right lower lobe pulmonary infiltrate. BNP elevated on admission. Patient also noted to be in A. fib RVR on admission. Patient was initiated on antibiotics include levofloxacin and inhalers. Cardiology following patient receiving diuretics. Patient continued to remain on room air since admission. Auscultation clear with no wheezing. Initiated incentive spirometry, improved proved breath sounds on the right lung base. Patient however still noted to have bibasilar crackles. Plan: -Incentive spirometry -Continue levofloxacin for a total of 5 days. -[place]in[place]
--- NOTE | 2020-06-08 09:36 | HMH.DCSUM ---
General - General Admission date:: 06/05/20 Discharge date: 06/08/20 HPI HPI: [facility] pt [facility] who presents to the ed with sob-this is daily but has increased over the last few days -rought in by ambulance from [facility]. Her complaint is shortness of breath. She says it started tonight . However, she also states that she has not smoked in a few days because of trouble breathing. Denies fever, denies cough, denies chest pain. Denies vomiting or diarrhea. She has had some nausea. She carries a diagnosis of COPD as well as atrial fibrillation and congestive heart failure. She has previously had COVID-19. pt was admitted with copd and chf - Hospital Course Hospital Course: Laboratory Tests 06/05/20 06/05/20 06/05/20 08:01 08:01 08:01 WBC 11.0 H RBC 4.44 Hgb 8.9 L Hct 32.0 L MCV 72.0 L MCH 20.1 L MCHC 27.9 L RDW 20.1 H Plt Count 436 H MPV 8.5 Neut % (Auto) 67.4 Lymph % (Auto) 21.2 [place] % (Auto) 6.0 Eos % (Auto) 4.2 Baso % (Auto) 1.2 Neut # (Auto) 7.4 Lymph # (Auto) 2.3 [place] # (Auto) 0.7 Eos # (Auto) 0.5 H Baso # (Auto) 0.1 Sodium 140 Potassium 4.2 Chloride 108 H Carbon Dioxide 28 Anion Gap 8.2 BUN 17 Creatinine 1.10 H Estimated Creat Clear 53 Estimated GFR 48 L Est GFR ( Amer) 58 L Glucose 164 H POC Glucose Lactate 1.3 Calcium 8.9 Total Bilirubin 0.5 AST 28 ALT 16 Alkaline Phosphatase 122 Troponin I < 0.01 NT-Pro-B Natriuret Pep Total Protein 6.9 Albumin 3.5 Globulin 3.4 H Albumin/Globulin Ratio 1.0 L Triglycerides Cholesterol LDL Cholesterol Direct VLDL Cholesterol HDL Cholesterol Cholesterol/HDL Ratio TSH Chlamy pneumoniae PCR Adenovirus (PCR) B. pertussis DNA (PCR) Coronavirus OC43 (PCR) Coronavirus HKU1 (PCR) Coronavirus 229E (PCR) SARS-CoV-2 (PCR) Coronavirus NL63 (PCR) Human Metapneumovir PCR Influenza A (H1) PCR Influ A (H1N1/09) PCR Influenza A (H3) PCR Influenza Type A (PCR) Influenza Type B (PCR) M. pneumoniae (PCR) Parainfluenza 1 (PCR) Parainfluenza 2 (PCR) Parainfluenza 3 (PCR) Parainfluenza 4 (PCR) RSV (PCR) Entero/Rhino (PCR) Blood Type Antibody Screen Crossmatch (AHG) 06/05/20 06/05/20 06/05/20 08:01 08:06 10:41 WBC RBC Hgb Hct MCV MCH MCHC RDW Plt Count MPV Neut % (Auto) Lymph % (Auto) [place] % (Auto) Eos % (Auto) Baso % (Auto) Neut # (Auto) Lymph # (Auto) [place] # (Auto) Eos # (Auto) Baso # (Auto) Sodium Potassium Chloride Carbon Dioxide Anion Gap BUN Creatinine Estimated Creat Clear Estimated GFR Est GFR ( Amer) Glucose POC Glucose Lactate Calcium Total Bilirubin AST ALT Alkaline Phosphatase Troponin I < 0.01 NT-Pro-B Natriuret Pep 2450 H Total Protein Albumin Globulin Albumin/Globulin Ratio Triglycerides Cholesterol LDL Cholesterol Direct VLDL Cholesterol HDL Cholesterol Cholesterol/HDL Ratio TSH Chlamy pneumoniae PCR Not detected Adenovirus (PCR) Not detected B. pertussis DNA (PCR) Not detected Coronavirus OC43 (PCR) Not detected Coronavirus HKU1 (PCR) Not detected Coronavirus 229E (PCR) Not detected SARS-CoV-2 (PCR) Not detected Coronavirus NL63 (PCR) Not detected Human Metapneumovir PCR Not detected Influenza A (H1) PCR Not detected Influ A (H1N1/) PCR Not detected Influenza A (H3) PCR Not detected Influenza Type A (PCR) Not detected Influenza Type B (PCR) Not detected M. pneumoniae (PCR) Not detected Parainfluenza 1 (PCR) Not detected Parainfluenza 2 (PCR) Not detected Parainfluenza 3 (PCR) Not detected Parainfluenza 4 (PCR) Not detected RSV (P
--- NOTE | 2020-06-08 10:33 | PC.NURSE ---
relayed to case management patient ready to go, [facility]
--- NOTE | 2020-06-08 12:09 | SW/DCPLANNER ---
SET UP TRANSPORT WITH [facility] TO TAKE PATIENT BACK TO HER PERSONAL SHELTER...
[2020-06-09 01:15] LABS: POC Glucose,Bedside 141 (70-110)
== END 2020-06-08 13:48 | disposition home or self-care (01) ==
LOC: ER 09:28 → 2ND 11:42
PROVIDERS: Nurse Practitioner Family; Admitting Provider Emergency Medicine; Emergency Provider Emergency Medicine; PCP Emergency Medicine; Visit Provider Emergency Medicine
DX: J44.1 Chronic obstructive pulmonary disease with (acute) exacerbation (principal); I50.33 Acute on chronic diastolic (congestive) heart failure; I48.91 Unspecified atrial fibrillation; E11.9 Type 2 diabetes mellitus without complications; I11.0 Hypertensive heart disease with heart failure; I25.2 Old myocardial infarction; I25.10 Atherosclerotic heart disease of native coronary artery without angina pectoris; Z95.5 Presence of coronary angioplasty implant and graft; I35.1 Nonrheumatic aortic (valve) insufficiency; D50.0 Iron deficiency anemia secondary to blood loss (chronic); E03.9 Hypothyroidism, unspecified; Z72.0 Tobacco use; Z86.16 Personal history of COVID-19; Z88.8 Allergy status to other drugs, medicaments and biological substances; Z79.4 Long term (current) use of insulin; Z79.82 Long term (current) use of aspirin; Z79.899 Other long term (current) drug therapy; Z88.5 Allergy status to narcotic agent
CPT/HCPCS: 36415; 71045; 80048; 80053; 80061; 82962; 83605; 83880; 84443; 84484; 85014; 85018; 85025; 86850; 87040; 87070; 87205; 87581; 87633; 87798; 93005; 93306; 94640; 96365; 97110; 97116; 97161; 97166; 97530; 97535; 99284; G0378; J1956; P9016